=== PATIENT | male | born 1965 | race Two or more races ===

== ENCOUNTER 2024-12-11 20:53 | Inpatient (IN) | payer MEDICARE, MEDICAID, SELFPAY ==
[2024-12-11 20:55] VITALS: PULSE 74; RESP 18; O2SAT 96
--- NOTE | 2024-12-11 21:00 | PC.NURSE ---
PT BROUGHT TO ER BY AMBULANCE FROM HOME, EMS REPORTED FAMILY SAID HE IS ALTERED AND HIS BS HIGH 500, EMS GOT OD=[id number], EMS ALSO REPORTED PT VOMITED ,ZOFRAN GIVEN.
--- NOTE | 2024-12-11 21:04 | EKG_ITS ---
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
[2024-12-11 21:08] VITALS: BP 188/62; PULSE 68; RESP 17; TEMP 36.6; O2SAT 100
[2024-12-11] MEDS: SODIUM CHLORIDE 0.9% 1000 ML 1,000 ML 999 ML IV ×2 (21:50→23:20)
[2024-12-11 21:56] LABS: Collection Type, Urine Clean Catch; WBC,Urine 0 /hpf (0-5)
[2024-12-11 21:58] LABS: Hematocrit 29.1 % (41.0-53.0); Hemoglobin 10.4 g/dL (13.5-16.0); Mean Corpuscular HGB Conc 35.7 g/dl (31.0-37.0); Mean Corpuscular Hemoglobin 29.1 pg (25.0-35.0); Mean Corpuscular Volume 82 fL (80-100); Platelet Count 254 Thou/mm3 (140-440); RDW Standard Deviation 36.5 fL (35.1-43.9); Red Blood Count 3.57 Miln/mm3 (4.50-5.90); White Blood Count 12.4 Thou/mm3 (3.8-10.6)
[2024-12-11 21:59] LABS: Basophils % (Auto) 0 % (0-2.5); Eosinophils % (Auto) 0 % (0-10); Immature Granulocytes % (Auto) 0 % (0-0); Immature Granulocytes Auto 0.04 Thou/mm3 (0.00-0.00); Lymphocytes # (Auto) 1.2 Thou/mm3 (1.0-4.8); Lymphocytes % (Auto) 10 % (10-50); Monocytes # (Auto) 0.5 Thou/mm3 (0.0-0.8); Monocytes % (Auto) 4 % (0-12); Neutrophils # (Auto) 10.6 Thou/mm3 (1.8-7.7); Neutrophils % (Auto) 86 % (37-80); Nucleated Red Blood Cell % 0 /100 WBC (0)
[2024-12-11 22:00] LABS: Lactate (Lactic Acid) 5.7 mMol/L (0.4-2.0)
[2024-12-11 22:06] LABS: Beta Hydroxybutyrate 0.1 mmol/L (<0.6)
--- NOTE | 2024-12-11 22:07 | EDNOTE_ITS ---
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 Patient denies fever, Cardiac Hx or any other associated symptoms or aggravating factors. No modifying factors, no radiation, no migration. Some pain reported overall Related Data Home Medications ?Medication ?Instructions ?Recorded ?Confirmed pravastatin 40 mg tablet 40 mg PO QDAY 12/21/1807/15 omeprazole 20 mg capsule,delayed 20 mg PO QDAY 0 07/15/19 release tamsulosin 0.4 mg capsule 0.4 mg PO QDAY 07/15/1907/03 aspirin 81 mg tablet,delayed 81 mg PO QDAY 12/07/23 release carvedilol 6.25 mg tablet 6.25 mg PO BID 12/07/2312/24 Previous Rx's ?Medication ?Instructions ?Recorded empagliflozin 25 mg tablet 25 mg PO QDAY #30 tabs 12/24 (Jardiance) furosemide 40 mg tablet (Lasix) 40 mg PO QAM #30 tabs 12/07/23 insulin glargine 100 unit/mL (3 20 unit (0.2 mL) subcu t BID #15 mL 12/07/23 mL) subcutaneous pen lancets (Accu-Chek Softclix #100 ea 12/07/23 Lancets) levothyroxine 25 mcg capsule 25 mcg PO ACBR #30 caps 0 12/07/23 metformin 500 mg tablet,extended 500 mg PO QDAY #30 ta bs 12/07/23 release 24 hr pen needle, diabetic 29 gauge x #100 ea 12/07/23 1/2 Allergies Allergy/AdvReac Type Severity Reaction Status Date / Time No Known Allergies Allergy Verified 07/15/19 10:38 Review of Systems Review of Systems Systems Reviewed: All systems reviewed, normal except as documented Past Medical History Past Medical History CARDIAC: Positive Cardiac Disorders, Peripheral Vascular Disease, Hypercholesterolemia and Hypertension GASTROINTESTINAL: Positive Gastrointestinal Disorders, Pancreatitis, Gall Bladder Disease and Gastroesophageal Reflux Disease GENITOURINARY: Positive Genitourinary Disorders and Kidney Stones MUSCULOSKELETAL: Positive Musculoskeletal Disorders and Arthritis ENDOCRINE: Positive Endocrine Disorders and Diabetes Mellitus Type 2 Family History FAMILY HISTORY: Positive Family Cancer Surgical History SURGICAL: Positive Abdominal Surgery, Joint Replacement and Amputation ED Exam Narrative Physical exam: GENERAL APPEARANCE: alert and oriented x 4, well-developed, well-nourished, no acute distress VITALS: All vitals were reviewed and the pulse ox is 100% on room air, which is normal according to my interpretation. HEENT: Normocephalic, atraumatic; pupils equal, round, reactive to light; EOMI; mucous membranes pink, moist; oropharynx clear NECK: Supple LUNGS: CTABL; no wheezes, no rales, no rhonchi HEART: Regular rate, regular rhythm; normal S1, S2; no murmurs ABDOMEN: non distended; normal BS; soft, no tenderness, no guarding, no rebound; no masses, no organomegaly, no hernia BACK: no CVA tenderness EXTREMITIES: atraumatic; no edema, having reiters NEUROLOGIC: awake; alert and oriented x4; cranial nerves II-XII grossly intact; no focal sensory or motor deficits PSYCHIATRIC: appropriate mood and affect SKIN: warm, dry, pale; no rashes Course Quality Measures none Orders Category Date Time Status EKG (ED ONLY) *Do not use* NOW Care 12/11/24 21:04 Completed Fingerstick [Bedside Blood Glucose] NOW Care 12/11/24 22:07 Active IV [Insert IV] NOW Care 12/11/24 21:[address] abdomen pelvis wo con Stat Exams 12/11/24 23:[address] head/brain wo con Stat Exams 12/11/24 22:37 Completed EKG (ED Only) Stat Exams 12/11/24 21:04 Ordered XR chest 1V portable Stat Exams 12/11/24 22:37 Completed BNP [B-Type Natriuretic Peptide] Stat Lab 12/11/24 21:45 Completed Beta Hydroxybutyrate Stat Lab 12/11/24 21:45 Completed Blood Culture (Lab) Stat Lab 12/11/24 22:19 Received CBC Stat Lab 12/11/24 21:45 Completed Comprehensive Metabolic Panel Stat Lab 12/11/24 21:45 Completed Lactate (Lactic Acid) Stat Lab 12/11/24 21:45 Completed Lactic Acid, 3 HR Stat Lab 12/12/24 01:03 Completed Lipase Stat Lab 12/11/24 21:45 Completed Magnesium Stat Lab 12/11/24 21:45 Completed Procalcitonin Stat Lab 12/11/24 21:45 Completed Troponin I Stat Lab 12/11/24 21:45 Completed UA, C/S IF [Urinalysis, C/S if Indicated] Stat Lab 12/11/24 20:45 Completed 2 gm Med 12/12/24 01:44 Ordered Magnesium Sulfate 2 GM Ivpb [Magnesium Sulfate Ivpb] 2 gm in 50 ml IV X1 KCl (Potassium) Ivpb 40Meq Med 12/12/24 01:44 Ordered POTASSIUM CHL 10 mEq IVPB [Kcl Ivpb] 10 meq in 100 ml IV Q1H Labetalol IV [Trandate IV] Med 12/12/24 00:19 Discontinued 10 mg IVP X1 ONE Morphine Inj Med 12/11/24 22:24 Discontinued 3 mg IVP X1 ONE Ondansetron Inj [Zofran Inj] Med 12/11/24 22:24 Discontinued 4 mg IVP X1 ONE Piper/Tazo 2.25 gm [Zosyn] Med 12/11/24 23:03 Discontinued 2.25 gm in 50 ml IV X1 Piperacillin/Tazo 2.25GM Inj [Zosyn Inj] Med 12/11/24 23:23 Discontinued 2.25 gm IV .STK-MED ONE Sodium Chloride 0.9% 1000 ml [Ns] 1,000 ml Med 12/11/24 21:36 Discontinued IV 999 mls/hr Sodium Chloride 0.9% 1000 ml [Ns] 1,000 ml Med 12/11/24 23:02 Discontinued IV 999 mls/hr Vital Signs Vital signs: Vital Signs Temperature 97.8 F 12/11/24 21:08 Pulse Rate 68 12/11/24 21:08 Respiratory Rate 17 12/11/24 21:08 Blood Pressure 188/62 H 12/11/24 21:08 Pulse Oximetry (%) 100 12/11/24 21:08 Oxygen Delivery Method Room Air 12/11/24 21:08 Nausea/Vomiting/Diarrhea MDM Narrative MDM Narrative:: Scribe Attestation: Julianne Briggs, am scribing for and in the presence of Dr. Foreman. Provider Notation: Although this document has been carefully reviewed, there may still be some phonetic and other typographical errors.? These errors are purely grammatical due to imperfections in the software program and should not be construed in any way to? compromise the substance of the patient's medical care during this visit. Patient data External records reviewed:: [facility] previous records and EMS form Clinical information provided by:: patient and family (Daughter) Social determinants that could affect healthcare access:: none Patient has the following chronic illnesses:: Peripheral Vascular Disease, Hypercholesterolemia, Hypertension, Pancreatitis, Gall Bladder Disease, Gastroesophageal Reflux Disease, Kidney Stones, Arthritis, and Diabetes Mellitus Type 2 How is presenting disease/condition affected by chronic disease/condition?: exacerbated by Evaluation data The following diagnostics were reviewed and interpreted by me:: lab results, radiology exam(s) and EKG tracing(s) Lab and/or radiology exams considered but not ordered:: None Interpretation Summary: WBC 12.4, Potassium 3.2, Creatinine 2.7 (which is chronic), BUN 36, Glucose 190, Lactic Acid 5.7, Procalcitonin normal, UA shows 2+ protein and 4+ glucose. EKG done at 2128, NSR, rate of 70, normal intervals, normal axis, no acute ST or T wave changes, according to my interpretation. [facility] Report Signed Patient: JU PINON [facility] Record#: [id number] Birthdate: 1965 Age/Sex: 59 / M Location: [facility] Attending Dr: Ordering Physician: Rin Foreman MD Date of Service: 12/11/24 Procedure(s): XR chest 1V portable Accession Number(s): [id number] cc: Blake Gomez PA-C; Elton Montes MD; Rin Foreman MD~ Examination: AP chest single view NOT: AP portable upright chest single view Date and time: 08/13/2019 537 hours Comparison December 03, 2023 INDICATION: Chest pain today FINDINGS: Normal heart size The lungs are clear. The osseous structures are intact IMPRESSION: No active disease Dictated By: Elton Montes MD Signed By: <Electronically signed by Elton Montes MD in OV> 12/11/24 3761 [facility] Report Signed Patient: JU PINON [facility]. Record#: [id number] Birthdate: 1965 Age/Sex: 59 / M Location: [facility] Attending Dr: Ordering Physician: Rin Foreman MD Date of Service: 12/11/24 Procedure(s): CT head/brain wo con Accession Number(s): [id number] cc: Blake Gomez PA-C; Elton Montes MD; Rin Foreman MD~ Examination: CT brain head without contrast. 2-D sagittal coronal reconstructions Date and time of exam:December 11, 2024 10:50 PM INDICATIONS: Onset hypertension and dizziness today CTDI: vol (mGy):24.4 DLP: (mGycm):800 Technique: Multiple CT axial sections of the brain have been obtained, 5 mm slice thickness. Contrast has not been administered. 2-D sagittal, coronal reconstructions have been obtained Low dose protocols were performed. One or more of the following dose reduction techniques were used; automated exposure control, adjustment of the mA and/or KV according to patient size, use of iterative reconstruction technique. Findings: No significant ventricular enlargement. Intra-axial or extra-axial hemorrhage density is not seen. No mass effect or midline shift Basal cisterns are not remarkable. Fourth ventricle is midline. Cranial vault intact. Impression: Negative for acute hemorrhage, mass effect or midline shift Prominent ethmoid and left sphenoid and bilateral maxillary sinusitis Dictated By: Elton Montes MD Signed By: <Electronically signed by Eltno Montes MD in OV> 12/11/24 1339 [place] Preliminary Report Draft Patient: JU PINON [facility]. Record#: [id number] Birthdate: 1965 Age/Sex: 59 / M Location: [facility] Attending Dr: Ordering Physician: Date of Service: Procedure(s): Accession Number(s): cc: ~ CT scan of the abdomen and pelvis without intravenous contrast (axial sections with sagittal and coronal reformats) December 12, 2024 0028 hours Clinical History: Vomiting Reference is made to the prior CT report dated December 04, 2023. Findings: Mild bibasilar dependent atelectasis is present. A small hiatal hernia is present. The gallbladder is surgically absent with mildly prominent bile ducts. There is mild nodular thickening of the left adrenal. Nonobstructing renal calculi are seen bilaterally. There is no ureteric calculus or hydroureteronephrosis. The liver, pancreas, spleen and right adrenal are unremarkable on this noncontrast study. There is moderate gastric distention with possible mild gastric wall thickening and perigastric fat stranding/hyperemia. No evidence of bowel dilatation. There is thickening versus underdistention of the transverse colon and descending colon with pericolonic fat stranding/hyperemia. The rectum is distended with fecal material. Moderate amount of fecal material is present in the remaining colon. The appendix is not definitely visualized. The urinary bladder is unremarkable. There is mild prostatomegaly. There is no free fluid or free air. There is no adenopathy. The abdominal aorta demonstrates atheromatous calcification without evidence of aneurysm. There is mild diffuse subcutaneous edema. Mild degenerative changes are identified in the spine. Impression: No evidence of small bowel obstruction, free air or fluid collection. Findings suspicious for rectal fecal impaction. Thickening versus underdistention of the transverse colon and descending colon with pericolonic fat stranding/hyperemia. Possibility of mild colitis cannot be excluded. Findings suspicious for mild gastritis. Other findings as described above. Report Electronically Signed By: Manuel Guerra 12/12/2024 1:34:58 AM [EST] Medications / Prescriptions Medications / Prescriptions considered but not ordered:: None Medication administrations:: Medication Administration History Discontinued Medications Sodium Chloride (Ns) 1,000 mls @ 999 mls/hr IV .Q1H1M ONE Stop: 12/11/24 22:36 Last Infusion: 12/11/24 22:45 Dose: Infused Documented By: Admin: 12/11/24 21:50 Dose: 999 mls/hr Documented By: CVL Sodium Chloride (Ns) 1,000 mls @ 999 mls/hr IV .Q1H1M ONE Stop: 12/12/24 00:02 Last Infusion: 12/12/24 00:02 Dose: Infused Documented By: Admin: 12/11/24 23:20 Dose: 999 mls/hr Documented By: CVL Piperacillin/Tazobactam/Dextrose (Zosyn) 2.25 gm in 50 mls @ 100 mls/hr IV X1 ONE Stop: 12/11/24 23:32 Last Infusion: 12/12/24 00:09 Dose: Infused Documented By: Admin: 12/11/24 23:36 Dose: 100 mls/hr Documented By: CVL Labetalol HCl (Labetalol Inj 5 Mg/Ml Vial 20 Ml) 10 mg IVP X1 ONE Stop: 12/12/24 00:20 Last Admin: 12/12/24 00:43 Dose: 10 mg Documented By: CVL Morphine Sulfate (Morphine Sulf Inj 10 Mg/Ml Vial) 3 mg IVP X1 ONE Stop: 12/11/24 22:25 Last Admin: 12/11/24 22:34 Dose: 3 mg Documented By: CVL Comments: vial was discard before scan Ondansetron HCl (Ondansetron Inj 2 Mg/Ml Inj 2 Ml) 4 mg IVP X1 ONE Stop: 12/11/24 22:25 Last Admin: 12/11/24 22:33 Dose: 4 mg Documented By: CVL Piperacillin Sod/Tazobactam Sod (Piperacillin/Tazo Inj 2.25 Gm Vial) Confirm Administered Dose 2.25 gm IV .STK-MED ONE Stop: 12/11/24 23:24 Last Admin: 12/11/24 23:38 Dose: Not Given Documented By: CVL Non-Admin Reason: Duplicate Medication on eMAR See above if any. Consultations Consultation(s) initiated? (list below): Yes Consultation #1 (Physician, Specialty, Details): Discussed case with the resident physician, attending Dr. Levy from Hospitalist service regarding admission. Discussed patients ED course, exam findings, labs, and radiology results. The Hospitalist agrees to accept the patient for admissi on. Time: 01:41 Diagnosis Nausea Differential Diagnosis: gastroenteritis, drug-induced nausea and vomiting, dehydration and other (Gastritis, Viral illness, Pharyngitis, Otitis Media, Otitis Externa.) Most likely diagnosis given after review of the tests above:: hypertensive urgency, vomiting, lactic acidosis Admission Indicated Admission indicated?: indicated Admission Request Was there a request for admission?: Yes Admission Attestation Admission request attestation: Discussed case with [] from Hospitalist service regarding admission. Discussed patients ED course, exam findings, labs, and radiology results. The Hospitalist [agrees,declines] to accept the patient for admission. Disposition Plan Disposition Plan: Admit Discharge Plan Plan Patient Disposition: Admit Acute Care w/in Hospital Prescriptions/Referrals Prescriptions/Med Rec: No Action pravastatin 40 mg Tablet 40 mg PO QDAY omeprazole 20 mg Capsule,Delayed Release(Dr/Ec) 20 mg PO QDAY tamsulosin 0.4 mg Capsule 0.4 mg PO QDAY aspirin 81 mg tablet,delayed release (DR/EC) 81 mg PO QDAY carvedilol 6.25 mg tablet 6.25 mg PO BID metformin 500 mg tablet extended release 24 hr 500 mg PO QDAY Qty: 30 0RF Jardiance 25 mg tablet 25 mg PO QDAY Qty: 30 0RF furosemide [Lasix] 40 mg tablet 40 mg PO QAM Qty: 30 0RF levothyroxine 25 mcg capsule 25 mcg PO ACBR Qty: 30 2RF Rx Instructions: Take 1 capsule (25mcg) every morning, 2 hours before any food or other medications insulin glargine 100 unit/mL (3 mL) insulin pen 20 unit subcut BID Qty: 15 0RF (DME) pen needle, diabetic 29 gauge x 1/2 needle See Rx Instructions .Route Qty: 100 0RF Rx Instructions: As directed (DME) lancets [Accu-Chek Softclix Lancets] Misc See Rx Instructions .Route Qty: 100 0RF Rx Instructions: As directed Referrals: Blake Gomez PA-C [Primary Care Provider] - In 1 week Problem List Clinical Impression: Hypertensive urgency, Vomiting, Lactic acidosis Patient/Caregiver Discharge Instructions Print Language: Eritrean Stand Alone Forms: [facility] Award Info., Patient Portal Info Letter
[2024-12-11 22:17] LABS: Bilirubin,Urine Negative (Negative); Blood,Urine Trace (Negative); Clarity,Urine Clear (Clear/Hazy); Color,Urine Colorless (Lt Yel-Yel); Culture Indicated,Urine Not Indicated; Glucose, Urine 4+ (Negative); Ketones,Urine Negative (Negative); Leukocyte Esterase,Urine Negative (Negative); Nitrite,Urine Negative (Negative); Protein,Urine 2+ (Neg - Trace); RBC,Urine 1 /hpf (0-3); Specific Gravity,Urine 1.016 (1.001-1.035); Squamous Epithelial Cell,Urine < 1 /hpf (0-5); Urobilinogen,Urine Negative mg/dL (0.0-1.0)
[2024-12-11 22:30] LABS: Alanine Aminotransferase 13 U/L (10-49); Albumin, Serum 4.1 gm/dL (3.4-4.8); Albumin/Globulin Ratio 2.1 (1.2-2.2); Alkaline Phosphatase 106 U/L (46-116); Anion Gap 16 (7-16); BUN/Creatinine Ratio 13 Ratio (12-20); Bilirubin,Total 0.5 mg/dL (0.3-1.2); Blood Urea Nitrogen 36 mg/dL (9-23); Calcium 9.5 mg/dL (8.3-10.6); Calcium (Corrected) 9.5 mg/dL (8.5-10.1); Chloride 100 mMol/L (98-107); Creatinine (Component) 2.7 mg/dL (0.6-1.3); Glucose 190 mg/dL (74-106); Lipase 34 U/L (12-53); Magnesium 1.6 mg/dL (1.6-2.6); Osmolality,Calculated 287 (275-295); Potassium 3.2 mMol/L (3.4-5.1); Procalcitonin 0.22 ng/ml (0.0-0.49); Sodium 137 mMol/L (136-145); Total Protein 6.1 gm/dL (5.7-8.2); eGFR 26 See Note
[2024-12-11] MEDS: ONDANSETRON INJ 2 MG/ML INJ 2 ML 4 MG IVP (22:33)
[2024-12-11] MEDS: MORPHINE SULF INJ 10 MG/ML VIAL 3 MG IVP (22:34)
--- NOTE | 2024-12-11 22:37 | XR_ITS ---
Examination: CT brain head without contrast. 2-D sagittal coronal reconstructions Date and time of exam:December 11, 2024 10:50 PM INDICATIONS: Onset hypertension and dizziness today CTDI: vol (mGy):24.4 DLP: (mGycm):800 Technique: Multiple CT axial sections of the brain have been obtained, 5 mm slice thickness. Contrast has not been administered. 2-D sagittal, coronal reconstructions have been obtained Low dose protocols were performed. One or more of the following dose reduction techniques were used; automated exposure control, adjustment of the mA and/or KV according to patient size, use of iterative reconstruction technique. Findings: No significant ventricular enlargement. Intra-axial or extra-axial hemorrhage density is not seen. No mass effect or midline shift Basal cisterns are not remarkable. Fourth ventricle is midline. Cranial vault intact. Impression: Negative for acute hemorrhage, mass effect or midline shift Prominent ethmoid and left sphenoid and bilateral maxillary sinusitis
--- NOTE | 2024-12-11 22:37 | XR_ITS ---
Examination: AP chest single view NOT: AP portable upright chest single view Date and time: 08/13/2019 537 hours Comparison December 03, 2023 INDICATION: Chest pain today FINDINGS: Normal heart size The lungs are clear. The osseous structures are intact IMPRESSION: No active disease
[2024-12-11 22:56] LABS: Troponin I < 0.020 ng/mL (0.0-0.045)
[2024-12-11 23:05] LABS: B-Type Natriuretic Peptide 120 pg/mL (0-100)
[2024-12-11 23:16] VITALS: BP 202/83; PULSE 94; RESP 18; TEMP 36.4; O2SAT 100
[2024-12-11] MEDS: PIPER/TAZO 2.25 GM 2.25 GM/50 ML BAG IV (23:36)
[2024-12-11 23:50] VITALS: BP 208/89; PULSE 102; RESP 16; O2SAT 99
--- NOTE | 2024-12-11 23:53 | XR_ITS ---
Examination: CT abdomen and pelvis without contrast. Coronal 3-D reconstructions. Sagittal 2-D reconstructions. Date and time of exam:December 12, 2024 0028 hours Comparison December 04, 2023 INDICATIONS: Nausea vomiting weakness today CTDI: vol (mGy): 6.35 DLP: (mGycm): 364 Technique: Axial images of the abdomen have been obtained, 3 mm slice thickness Intravenous contrast material has not been administered. Low dose protocols were performed. One or more of the following dose reduction techniques were used; automated exposure control, adjustment of the mA and/or KV according to patient size, use of iterative reconstruction technique. Findings: No focal liver lesion Absent gallbladder Gastric mucosa is diffusely thickened No pancreatic mass Bilateral 1 to 3 mm renal calculi Perinephric stranding Abdominal aortic calcification no aneurysmal dilatation No bowel obstruction Mild wall thickening involving the colon No diverticulitis Abundant stool in the rectum with thickening of the rectal wall Mild prostatomegaly Advanced disc narrowing L5-S1 IMPRESSION: Gastritis pattern. Bilateral tiny nonobstructing renal calculi, no hydronephrosis or ureteral calculi No bowel obstruction Suspicious for mild diffuse nonspecific colitis Abundant stool in the rectum with thickening of the rectal wall, differential would include proctitis, the appearance should be clinically correlated
[2024-12-12] VITALS (15 sets, daily range): BP systolic 111–201; BP diastolic 55–91; PULSE 63–102; RESP 12–98; TEMP 36.1–36.9; O2SAT 98–99; BMI 23.7; BMI 23.6
[2024-12-12] MEDS: LABETALOL INJ 5 MG/ML VIAL 20 ML 10 MG IVP (00:43)
[2024-12-12 00:52] LABS: Reflex Lactate? Y
[2024-12-12 01:28] LABS: Lactic Acid, 3 HR 3.4 mMol/L (0.4-2.0)
--- NOTE | 2024-12-12 01:35 | PRELIM_ITS ---
CT scan of the abdomen and pelvis without intravenous contrast (axial sections with sagittal and coronal reformats) December 12, 2024 0028 hours Clinical History: Vomiting Reference is made to the prior CT report dated December 04, 2023. Findings: Mild bibasilar dependent atelectasis is present. A small hiatal hernia is present. The gallbladder is surgically absent with mildly prominent bile ducts. There is mild nodular thickening of the left adrenal. Nonobstructing renal calculi are seen bilaterally. There is no ureteric calculus or hydroureteronephrosis. The liver, pancreas, spleen and right adrenal are unremarkable on this noncontrast study. There is moderate gastric distention with possible mild gastric wall thickening and perigastric fat stranding/hyperemia. No evidence of bowel dilatation. There is thickening versus underdistention of the transverse colon and descending colon with pericolonic fat stranding/hyperemia. The rectum is distended with fecal material. Moderate amount of fecal material is present in the remaining colon. The appendix is not definitely visualized. The urinary bladder is unremarkable. There is mild prostatomegaly. There is no free fluid or free air. There is no adenopathy. The abdominal aorta demonstrates atheromatous calcification without evidence of aneurysm. There is mild diffuse subcutaneous edema. Mild degenerative changes are identified in the spine. Impression: No evidence of small bowel obstruction, free air or fluid collection. Findings suspicious for rectal fecal impaction. Thickening versus underdistention of the transverse colon and descending colon with pericolonic fat stranding/hyperemia. Possibility of mild colitis cannot be excluded. Findings suspicious for mild gastritis. Other findings as described above. Report Electronically Signed By: Manuel Guerra 12/12/2024 1:34:58 AM [EST]
[2024-12-12] MEDS: POTASSIUM CHL 10 mEq IVPB 10 MEQ/100 ML BAG 100 MEQ IV ×4 (01:57→05:17)
--- NOTE | 2024-12-12 02:25 | ESHP_ITS ---
Documentation for date of: 12/12/24 HPI History of Present Illness Chief complaint: Nausea vomiting History of present illness: 59-year-old male with past medical history of hypertension, diabetes, hypothyroidism, HFpEF, peripheral neuropathy who presented to the ED due to nausea and vomiting. Onset of symptoms December 12, 2019 5 in the morning patient states he sat for 5 episodes of nausea and nonbloody vomiting with associated chills but denies any fevers. He also relates some abdominal pain rated 7 out of 10 across all 4 quadrants. He also states that since Monday he has been having some blurry vision and some headaches since Monday saw primary care and states nothing was done. He also states that he usually has chronic diarrhea since his cholecystectomy in 2019. At this time patient denies any fever, shortness of breath, chest pain, recent travel, sick contacts, leg swelling, orthopnea, PND. ED course: ED vitals: BP 188/62, HR 68, O2 sat 100% on room air ED labs: Leukocytosis, normocytic anemia, hypokalemia, BUN 36, creatinine 2.7, glucose 190, lactic acid 5.4 later downtrending to 3.4 after 2 L of IV fluids, BNP 120, UA shows 4+ glucose, 2+ protein CT abdomen pelvis done showed No evidence of small bowel obstruction, free air or fluid collection. Findings suspicious for rectal fecal impaction. Thickening versus underdistention of the transverse colon and descending colon with pericolonic fat stranding/hyperemia. Possibility of mild colitis cannot be excluded. Findings suspicious for mild gastritis. In the ED patient received 2 L NS, Zosyn, morphine, Zofran PMHx: As above SX Hx: Cholecystectomy, appendectomy, left toe amputation Social Hx: Denies cigarette use, denies alcohol use, denies illicit substances including THC Hx: Unknown Review of Systems Review of Systems Systems Reviewed: All systems reviewed, normal except as documented Narrative Review of Systems: All 12 systems reviewed and found negative unless otherwise stated in the HPI Exam Vital Signs Temp Pulse Resp BP Pulse Ox O2 Del Method 98.4 F 90 12 201/91 H 99 Room Air 12/12/24 02:15 12/12/24 02:15 12/12/24 02:15 12/12/24 02:15 12/12/24 02:15 12/12/24 01:16 Narrative Exam Physical Exam GENERAL: NAD, AAOx3 HEENT: Moist mucosa. Eyes open, symmetrical, & clear CARDIO: Heart RRR, no obvious murmurs PULM: No noted coughing/dyspnea CTA B/L, no R/W/R GI: Abdomen soft, nondistended, mild tenderness to palpation in all 4 quadrants, bowel sounds appreciated SKIN/MSK/EXT: Right lower extremity first metatarsal amputated, pedal pulses present B/L NEURO: AAOx3, no focal neuro deficits, able to move all 4 extremities Results: Labs 12/12/24 04:57 12/11/24 21:45 Labs: Short CBC 12/11/24 Range/Units 21:45 WBC 12.4 H (3.8-10.6) Thou/mm3 Hgb 10.4 L (13.5-16.0) g/dL Hct 29.1 L (41.0-53.0) % Plt Count 254 (140-440) Thou/mm3 BMP 12/11/24 21:45 Sodium 137 Potassium 3.2 L Chloride 100 Carbon Dioxide 21.0 BUN 36 H Creatinine 2.7 H Glucose 190 H Calcium 9.5 Cardiac Enzymes 12/11/24 Range/Units 21:45 Troponin I < 0.020 (0.0-0.045) ng/mL Liver Function 12/11/24 Range/Units 21:45 Total Bilirubin 0.5 (0.3-1.2) mg/dL ALT 13 (10-49) U/L Alkaline Phosphatase 106 (46-116) U/L Albumin 4.1 (3.4-4.8) gm/dL Urine 12/11/24 Range/Units 20:45 Urine Color Colorless A (Lt Yel-Yel) Urine Clarity Clear (Clear/Hazy) Urine pH 7.0 (5.0-7.0) Ur Specific [place] 1.016 (1.001-1.035) Urine Protein 2+ A (Neg - Trace) Urine Glucose (UA) 4+ A (Negative) Quality Measures Quality Measures none Medications Home Medications and Allergies Home Medications ?Medication ?Instructions ?Recorded ?Confirmed ?Type pravastatin 40 mg tablet 40 mg PO QDAY 12/21/1812/12 History tamsulosin 0.4 mg capsule 0.4 mg PO QDAY 07/15/1912/01 History aspirin 81 mg tablet,delayed 81 mg PO QDAY 12/07/23 History release carvedilol 6.25 mg tablet 6.25 mg PO BID 12/07/2312/01 History amoxicillin 875 mg-potassium 1 tab PO Q12H 12/12/24 History clavulanate 125 mg tablet gabapentin 600 mg tablet 600 mg PO Q12H 12/12/2412/01 History insulin glargine 100 unit/mL (3 36 unit subcut .daily 12/12/24 12/12/24 History mL) subcutaneous pen losartan 25 mg tablet 25 mg PO BID 12/12/24 History Allergies Allergy/AdvReac Type Severity Reaction Status Date / Time No Known Allergies Allergy Verified 07/15/19 10:38 Visit Medications Acetaminophen (Acetaminophen 325 Mg Tablet) 650 mg PO Q6H PRN PRN Reason: Fever >99.5 Stop: 01/11/25 02:11 Acetaminophen (Acetaminophen 325 Mg Tablet) 1,000 mg PO Q6H PRN PRN Reason: PAIN SCALE 1-3 (mild Stop: 01/11/25 02:11 Azithromycin (Azithromycin 250 Mg Tablet) 500 mg PO QDAY [facility] Stop: 12/15/24 08:59 Dextrose (Dextrose 50%-Water Inj 50 Ml Syringe) 25 ml IV Q15MIN PRN PRN Reason: BG 50-70 responsive npo pt Stop: 01/11/25 02:18 Dextrose (Dextrose 50%-Water Inj 50 Ml Syringe) 50 ml IV Q15MIN PRN PRN Reason: BG <50 OR BG <70 & pt unresponsive Stop: 01/11/25 02:18 Docusate Sodium (Docusate Sod 100 Mg Capsule) 100 mg PO QDAY [facility]; Protocol Stop: 01/11/25 08:59 Enoxaparin Sodium (Enoxaparin Sod Inj 40 Mg/0.4 Ml Syringe) 40 mg SC QDAY [facility] Stop: 12/26/24 08:59 Gabapentin (Gabapentin 300 Mg Capsule) 600 mg PO TID [facility] Stop: 01/11/25 05:59 Glucagon (Glucagon Inj 1 Mg Vial) 1 mg IM Q15MIN PRN PRN Reason: BG <70, and no IV access Magnesium Sulfate (Magnesium Sulfate Ivpb) 2 gm in 50 mls @ 25 mls/hr IV X1 ONE Stop: 12/12/24 03:43 Potassium Chloride (Kcl Ivpb) 10 meq in 100 mls @ 100 mls/hr IV Q1H [facility] Stop: 12/12/24 05:43 Last Admin: 12/12/24 01:57 Dose: 100 mls/hr Sodium Chloride (Ns) 1,000 mls @ 75 mls/hr IV .[id number] [facility] Stop: 01/11/25 02:17 Insulin Human Lispro (Insulin Lispro (Admelog) 1 Unit/0.01 Ml Unit) 0 unit SC AC [facility]; Protocol Stop: 01/11/25 07:29 Labetalol HCl (Labetalol Inj 5 Mg/Ml Vial 20 Ml) 10 mg IVP Q6HR PRN PRN Reason: SBP>180 Stop: 01/11/25 02:23 Levothyroxine Sodium (Levothyroxine Sodium 25 Mcg Tablet) 25 mcg PO [facility] Stop: 01/11/25 05:59 Nifedipine (Nifedipine Xl 30 Mg Tabcr) 60 mg PO QDAY [facility] Stop: 01/11/25 08:59 Ondansetron HCl (Ondansetron Inj 2 Mg/Ml Inj 2 Ml) 4 mg IVP Q6H PRN; Protocol PRN Reason: NAUSEA OR VOMITING Stop: 01/11/25 02:11 Sennosides (Senna Tablet) 1 tab PO QDAY [facility]; Protocol Stop: 01/11/25 08:59 Discontinued Medications Sodium Chloride (Ns) 1,000 mls @ 999 mls/hr IV .Q1H1M ONE Stop: 12/11/24 22:36 Last Infusion: 12/11/24 22:45 Dose: Infused Sodium Chloride (Ns) 1,000 mls @ 999 mls/hr IV .Q1H1M ONE Stop: 12/12/24 00:02 Last Infusion: 12/12/24 00:02 Dose: Infused Piperacillin/Tazobactam/Dextrose (Zosyn) 2.25 gm in 50 mls @ 100 mls/hr IV X1 ONE Stop: 12/11/24 23:32 Last Infusion: 12/12/24 00:09 Dose: Infused Labetalol HCl (Labetalol Inj 5 Mg/Ml Vial 20 Ml) 10 mg IVP X1 ONE Stop: 12/12/24 00:20 Last Admin: 12/12/24 00:43 Dose: 10 mg Morphine Sulfate (Morphine Sulf Inj 10 Mg/Ml Vial) 3 mg IVP X1 ONE Stop: 12/11/24 22:25 Last Admin: 12/11/24 22:34 Dose: 3 mg Ondansetron HCl (Ondansetron Inj 2 Mg/Ml Inj 2 Ml) 4 mg IVP X1 ONE Stop: 12/11/24 22:25 Last Admin: 12/11/24 22:33 Dose: 4 mg Assessment & Plan Plan 59-year-old male with past medical history of hypertension, diabetes, hypothyroidism, HFpEF presented to the ED due to nausea and vomiting. Patient will be admitted for colitis and hypertensive urgency/emergency. #Colitis Patient has multiple episodes of nausea with vomiting nonbloody emesis CT shows No evidence of small bowel obstruction, free air or fluid collection. Findings suspicious for rectal fecal impaction. Thickening versus underdistention of the transverse colon and descending colon with pericolonic fat stranding/hyperemia. Possibility of mild colitis cannot be excluded. Findings suspicious for mild gastritis. In the ED patient received 2 L NS, Zosyn, morphine, Zofran ? Azithromycin 500 mg daily X 3 days (12/12/2024?) ? Follow-up cultures ? Gentle IV hydration considering the patient has history of HFpEF although not on medications at this time #Hypertensive emergency Endorgan damage acute kidney injury, patient with blurry vision since Monday and associated headaches SBP >200 in the ED, Was given labetalol in the ER ? Nifedipine XR 60mg daily ? Labetalol 10 mg IV as needed #Acute Kidney injury #Lactic acidosis Likely secondary to dehydration due to vomiting episodes ? Follow-up lactic acid ? on gentle IVF's ? Avoid nephrotoxins ? Renally dose medications #HFpEF [55-60%] Found on chart review, med rec shows patient takes carvedilol and Lasix however when asked states he does not take these medications Not in acute exacerbation at this time #Diabetes mellitus type 2 #Peripheral neuropathy Last A1c: 9.5, December 2023 ? SSI ? Hypoglycemia protocol in place #Hypothyroidism ? Resume levothyroxine 25 mcg as taken at home Health Maintenance: Disposition: MedSurg Fluids: NS Feeding: Clear liquid Thrombo prophylaxis: Lovenox Gastric Ulcer prophylaxis: Pantoprazole CODE STATUS: Full code Case discussed with my attending Dr. Mildred Marshall MD PGY-1 Disclaimer: Despite multiple revisions, due to the dictation software being used, the document bellow may not be free of grammatical errors including phonetic/typographic errors. However, this does not deter from our commitment to providing health care in the patient's best interest in mind. Attending Provider Attestation/Addendum I reviewed labs, imaging, EKG, home medications and prior available records. Face to face evaluation was performed by me. I have personally examined the patient and discussed assessment and plan with the IM team. I reviewed the resident note and agree with the plan with exceptions as below. Nausea and vomiting Acute diarrhea, improved Acute gastroenteritis Colitis ANGELA on CKD Chronic HFpEF Lactic acidosis Hypertensive urgency versus emergency Uncontrolled hypertension Symptoms are likely in setting of gastroenteritis/colitis Start IV fluids Careful IV fluids in the setting of history of HFpEF Start empiric antibiotics with azithromycin Trend lactic acid Monitor kidney function. Avoid nephrotoxins. Renally dosed medications
[2024-12-12] MEDS: Magnesium Sulfate 2 GM Ivpb 2 GM/50 ML BAG IV (02:33)
--- NOTE | 2024-12-12 04:17 | PC.NURSE ---
REPORT GIVEN TO ANA BYERS AT [facility].
[2024-12-12] MEDS: SODIUM CHLORIDE 0.9% 1000 ML 1,000 ML 75 ML IV (05:04)
[2024-12-12 05:13] LABS: Lactate (Lactic Acid) 1.5 mMol/L (0.4-2.0)
[2024-12-12] MEDS: LEVOTHYROXINE SODIUM 25 MCG TABLET PO (05:13)
[2024-12-12] MEDS: NIFEdipine XL 30 MG TABCR 60 MG PO (05:13)
[2024-12-12] MEDS: GABAPENTIN 300 MG CAPSULE 600 MG PO ×3 (05:13→21:39)
[2024-12-12 05:16] LABS: Basophils % (Auto) 0 % (0-2.5); Eosinophils % (Auto) 0 % (0-10); Hematocrit 27.8 % (41.0-53.0); Hemoglobin 9.6 g/dL (13.5-16.0); Immature Granulocytes % (Auto) 0 % (0-0); Immature Granulocytes Auto 0.03 Thou/mm3 (0.00-0.00); Lymphocytes # (Auto) 0.9 Thou/mm3 (1.0-4.8); Lymphocytes % (Auto) 9 % (10-50); Mean Corpuscular HGB Conc 34.5 g/dl (31.0-37.0); Mean Corpuscular Hemoglobin 29.4 pg (25.0-35.0); Mean Corpuscular Volume 85 fL (80-100); Monocytes # (Auto) 0.4 Thou/mm3 (0.0-0.8); Monocytes % (Auto) 5 % (0-12); Neutrophils # (Auto) 8.5 Thou/mm3 (1.8-7.7); Neutrophils % (Auto) 86 % (37-80); Nucleated Red Blood Cell % 0 /100 WBC (0); Platelet Count 223 Thou/mm3 (140-440); RDW Standard Deviation 38.4 fL (35.1-43.9); Red Blood Count 3.26 Miln/mm3 (4.50-5.90); White Blood Count 9.8 Thou/mm3 (3.8-10.6)
[2024-12-12 05:36] LABS: Glucose Estimated Average 255 mg/dL (80-131); Hemoglobin A1C 10.5 % Hgb (4.8-6.0)
[2024-12-12 05:56] LABS: Alanine Aminotransferase 10 U/L (10-49); Albumin, Serum 3.4 gm/dL (3.4-4.8); Albumin/Globulin Ratio 1.7 (1.2-2.2); Alkaline Phosphatase 94 U/L (46-116); Anion Gap 13 (7-16); BUN/Creatinine Ratio 14 Ratio (12-20); Bilirubin,Total 0.5 mg/dL (0.3-1.2); Blood Urea Nitrogen 30 mg/dL (9-23); Calcium 8.2 mg/dL (8.3-10.6); Calcium (Corrected) 8.7 mg/dL (8.5-10.1); Carbon Dioxide 22.4 mMol/L (20.0-31.0); Chloride 107 mMol/L (98-107); Creatinine (Component) 2.2 mg/dL (0.6-1.3); Estimated Creatinine Clearance 31.8 mL/min (>60); Glucose 99 mg/dL (74-106); Magnesium 2.2 mg/dL (1.6-2.6); Osmolality,Calculated 289 (275-295); Potassium 4.7 mMol/L (3.4-5.1); Sodium 142 mMol/L (136-145); Thyroid Stimulating Hormone 2.66 uIU/mL (0.55-4.78); Total Protein 5.4 gm/dL (5.7-8.2); eGFR 33 See Note
[2024-12-12] MEDS: AZITHROMYCIN 250 MG TABLET 500 MG PO (08:25)
[2024-12-12] MEDS: PANTOPRAZOLE INJ 40 MG VIAL IVP (08:26)
[2024-12-12] MEDS: SENNA TABLET 1 TAB PO (08:26)
[2024-12-12] MEDS: DOCUSATE SOD 100 MG CAPSULE PO (08:26)
[2024-12-12] MEDS: ENOXAPARIN SOD INJ 40 MG/0.4 ML SYRINGE SC (08:26)
[2024-12-12] MEDS: INSULIN LISPRO (AdmeLOG) 1 UNIT/0.01 ML UNIT SC ×2 (11:35→17:09)
--- NOTE | 2024-12-12 11:41 | ESPR_ITS ---
<Statement entered by Emilie Headley MD - 12/24/24 08:54> I reviewed above note and agree with findings and plans. I have also personally examined the patient with medicine team and went over assessment and plan with medical team including graduate intern and resident physician. Documentation for date of: 12/12/24 Subjective Subjective Interval history: No acute overnigth events reported. Pt is seen and examined at bedside this morning. Pt continues to complain of mild abdominal pain. Endorses to improvement in his nausea and vomitting. Denies deziness. Pt states he did take his BP meds hwoever he continued to have headache at home. denies any sick contacts or recent travel. BP is stable and labs are review. Cr has a mild improvement. However after chart reviewing, Pt has history of CKD, therefore will consult nephrology. Exam Vital Signs Temp Pulse Resp BP Pulse Ox O2 Del Method 97.3 F 79 16 176/84 H 99 Room Air 12/12/24 08:00 12/12/24 08:00 12/12/24 08:00 12/12/24 08:00 12/12/24 08:00 12/12/24 08:00 Narrative Exam L GENERAL: A&Ox3 . estonian speaking, cooperative, Awake, Not in acute distress NEURO: no focal neurological deficits HEENT: Atraumatic, Normocephalic. mucous membranes moist. Eyes open, symmetrical, & clear HEART: Normal Heart Sounds LUNGS: Clear to auscultation with no wheezing or crackles. ABDOMEN: soft, non-distended, non-tender, bowel sounds heard, no guarding or rebound tenderness SKIN: No Rash or ecchymoses EXTREMITIES: No edema, tenderness, able to move all 4 extremities, pedal pulses palpated Objective Labs 12/12/24 04:57 12/12/24 04:57 Labs: Laboratory Results - last 24 hr 12/11/24 12/11/24 12/12/24 20:45 21:45 01:03 WBC 12.4 H RBC 3.57 L Hgb 10.4 L Hct 29.1 L MCV 82 MCH 29.1 MCHC 35.7 RDW Std Deviation 36.5 Plt Count 254 Neut % (Auto) 86 H Lymph % (Auto) 10 [place] % (Auto) 4 Eos % (Auto) 0 Baso % (Auto) 0 Neut # (Auto) 10.6 H Lymph # (Auto) 1.2 [place] # (Auto) 0.5 Eos # (Auto) 0.0 Baso # (Auto) 0.0 Immature Gran # (Auto) 0.04 H Absolute Nucleated RBC 0.00 Immature Gran % 0 Nucleated RBC % 0 Sodium 137 Potassium 3.2 L Chloride 100 Carbon Dioxide 21.0 Anion Gap 16 BUN 36 H Creatinine 2.7 H Estim Creat Clear Calc Not Performed. eGFR 26 L BUN/Creatinine Ratio [address] Glu mg/dL Hemoglobin A1c Calculated Osmolality 287 Lactic Acid 5.7 H* 3.4 H Calcium 9.5 Corrected Calcium 9.5 Magnesium 1.6 Total Bilirubin 0.5 ALT 13 Alkaline Phosphatase 106 Troponin I < 0.020 B-Natriuretic Peptide 120 H Total Protein 6.1 Albumin 4.1 Globulin 2.0 L Albumin/Globulin Ratio 2.1 Lipase 34 Beta-Hydroxybutyrate/Acetoacetate 0.1 Procalcitonin 0.22 TSH Ur Collection Type Clean Catch Urine Color Colorless A Urine Clarity Clear Urine pH 7.0 Ur Specific [place] 1.016 Urine Protein 2+ A Urine Glucose (UA) 4+ A Urine Ketones Negative Urine Blood Trace Urine Nitrite Negative Urine Bilirubin Negative Urine Urobilinogen (Auto) Negative Ur Leukocyte Esterase Negative Urine RBC 1 Urine WBC 0 Ur Squamous Epith Cells < 1 Urine Bacteria None Ur Culture Indicated? Not Indicated 12/12/24 04:57 WBC 9.8 RBC 3.26 L Hgb 9.6 L Hct 27.8 L MCV 85 MCH 29.4 MCHC 34.5 RDW Std Deviation 38.4 Plt Count 223 D Neut % (Auto) 86 H Lymph % (Auto) 9 L [place] % (Auto) 5 Eos % (Auto) 0 Baso % (Auto) 0 Neut # (Auto) 8.5 H Lymph # (Auto) 0.9 L [place] # (Auto) 0.4 Eos # (Auto) 0.0 Baso # (Auto) 0.0 Immature Gran # (Auto) 0.03 H Absolute Nucleated RBC 0.00 Immature Gran % 0 Nucleated RBC % 0 Sodium 142 Potassium 4.7 D Chloride 107 Carbon Dioxide 22.4 Anion Gap 13 BUN 30 H Creatinine 2.2 H D Estim Creat Clear Calc 31.8 L eGFR 33 L BUN/Creatinine Ratio [address] Glu mg/dL 255 H Hemoglobin A1c 10.5 H Calculated Osmolality 289 Lactic Acid 1.5 Calcium 8.2 L Corrected Calcium 8.7 Magnesium 2.2 Total Bilirubin 0.5 ALT 10 Alkaline Phosphatase 94 Troponin I B-Natriuretic Peptide Total Protein 5.4 L Albumin 3.4 D Globulin 2.0 L Albumin/Globulin Ratio 1.7 Lipase Beta-Hydroxybutyrate/Acetoacetate Procalcitonin TSH 2.66 Ur Collection Type Urine Color Urine Clarity Urine pH Ur Specific [place] Urine Protein Urine Glucose (UA) Urine Ketones Urine Blood Urine Nitrite Urine Bilirubin Urine Urobilinogen (Auto) Ur Leukocyte Esterase Urine RBC Urine WBC Ur Squamous Epith Cells Urine Bacteria Ur Culture Indicated? Quality Measures Quality Measures none Assessment & Plan Assessment Current Active Medications: Generic Name Dose Route Start Last Admin Trade Name Freq PRN Reason Stop Dose Admin Acetaminophen 650 mg 12/12/24 02:12 Acetaminophen 325 Mg Tablet PO 01/11/25 02:11 Q6H PRN Fever >99.5 Acetaminophen 1,000 mg 12/12/24 09:02 Acetaminophen 500 Mg Tablet PO 01/11/25 02:11 Q6H PRN PAIN SCALE 1-3 (mild Azithromycin 500 mg 12/12/24 09:00 12/12/24 08:25 Azithromycin 250 Mg Tablet PO 12/15/24 08:59 500 mg QDAY NILAM Administration Carvedilol 6.25 mg 12/12/24 17:30 Carvedilol 3.125 Mg Tablet PO 01/11/25 17:29 BIDWM NILAM Dextrose 25 ml 12/12/24 02:19 Dextrose 50%-Water Inj 50 Ml Syringe IV 01/11/25 02:18 Q15MIN PRN BG 50-70 responsive npo pt Dextrose 50 ml 12/12/24 02:19 Dextrose 50%-Water Inj 50 Ml Syringe IV 01/11/25 02:18 Q15MIN PRN BG <50 OR BG <70 & pt unresponsive Docusate Sodium 100 mg 12/12/24 09:00 12/12/24 08:26 Docusate Sod 100 Mg Capsule PO 01/11/25 08:59 100 mg QDAY NILAM Administration Protocol Enoxaparin Sodium 40 mg 12/12/24 09:00 12/12/24 08:26 Enoxaparin Sod Inj 40 Mg/0.4 Ml Syringe SC 12/26/24 08:59 40 mg QDAY NILAM Administration Gabapentin 600 mg 12/12/24 06:00 12/12/24 05:13 Gabapentin 300 Mg Capsule PO 01/11/25 05:59 600 mg TID NILAM Administration Glucagon 1 mg 12/12/24 02:19 Glucagon Inj 1 Mg Vial IM Q15MIN PRN BG <70, and no IV access Sodium Chloride 1,000 mls @ 75 mls/hr 12/12/24 02:18 12/12/24 05:04 Ns IV 12/12/24 15:37 75 mls/hr .[id number] NILAM Administration Insulin Human Lispro 0 unit 12/12/24 07:30 12/12/24 08:18 Insulin Lispro (Admelog) 1 Unit/0.01 Ml Unit SC 01/11/25 07:29 Not Given AC NILAM Protocol Levothyroxine Sodium 25 mcg 12/12/24 06:00 12/12/24 05:13 Levothyroxine Sodium 25 Mcg Tablet PO 01/11/25 05:59 25 mcg ACBR NILAM Administration Nifedipine 60 mg 12/12/24 03:00 12/12/24 08:54 Nifedipine Xl 30 Mg Tabcr PO 01/11/25 02:59 Not Given QDAY NILAM Ondansetron HCl 4 mg 12/12/24 02:12 Ondansetron Inj 2 Mg/Ml Inj 2 Ml IVP 01/11/25 02:11 Q6H PRN NAUSEA OR VOMITING Protocol Pantoprazole Sodium 40 mg 12/12/24 09:00 12/12/24 08:26 Pantoprazole Inj 40 Mg Vial IVP 01/11/25 08:59 40 mg QDAY NILAM Administration Sennosides 1 tab 12/12/24 09:00 12/12/24 08:26 Senna Tablet PO 01/11/25 08:59 1 tab QDAY NILAM Administration Protocol Plan Mr. Marshall is a 59-year-old male with past medical history of hypertension, diabetes, hypothyroidism, HFpEF presented to the ED due to nausea and vomiting. Patient will be admitted for colitis and hypertensive urgency/emergency. #Hypertensive emergency Endorgan damage acute kidney injury, patient with blurry vision since Monday and associated headaches SBP >200 in the ED, Was given labetalol in the ER ?Nifedipine XR 60mg daily ?Labetalol 10 mg IV as needed #Gastroenteritis Patient has multiple episodes of nausea with vomiting nonbloody emesis and diarrhea CT shows No evidence of small bowel obstruction, free air or fluid collection. Findings suspicious for rectal fecal impaction. Thickening versus underdistention of the transverse colon and descending colon with pericolonic fat stranding/hyperemia. Possibility of mild colitis cannot be excluded. Findings suspicious for mild gastritis. In the ED patient received 2 L NS, Zosyn, morphine, Zofran ? Azithromycin 500 mg daily X 3 days (12/12/2024?) ? Follow-up cultures ? Gentle IV hydration considering the patient has history of HFpEF although not on medications at this time #Acute Kidney injury on CKD #Lactic acidosis - resolved Likely secondary to dehydration due to vomiting episodes Pt has a history of CKD, per chart reviewing Pt creatinine has been between 2 to 3 and GFR 20-30 ? Follow-up lactic acid ? on gentle IVF's ? Avoid nephrotoxins ? Renally dose medications -Will consult Nephrology, appreciate recommendations #HFpEF [55-60%] Found on chart review, med rec shows patient takes carvedilol and Lasix however when asked states he does not take these medications Not in acute exacerbation at this time #Diabetes mellitus type 2 #Peripheral neuropathy Last A1c: 9.5, December 2023 ? SSI ? Hypoglycemia protocol in place #Hypothyroidism ? Resume levothyroxine 25 mcg as taken at home Health Maintenance: Disposition: MedSurg Fluids: NS Feeding: Clear liquid Thrombo prophylaxis: Lovenox Gastric Ulcer prophylaxis: Pantoprazole CODE STATUS: Full code Assessment and plan discussed with my attending physician Dr. Fang Mendoza (PGY-1)- Internal medicine resident
--- NOTE | 2024-12-12 13:13 | PD.RESCONSUL ---
HPI Data of Consult Consult date: 12/12/24 Requesting Physician: Yasmany Levy MD Admitting Provider: Yasmany Levy MD Attending Provider: Yasmany Levy MD Primary Care Provider: Blake Gomez PA-C Consult Narrative Reason for consult: ANGELA History of present illness: Vahe is a 59-year-old male with past medical history of hypertension, diabetes, hypothyroidism, HFpEF, peripheral neuropathy, BPH, gastritis, and CAD who presented to [facility] on December 11, 2024 for an evaluation of nausea and nonbloody vomiting and nonbloody episodes of diarrhea (10 times). Patient reports that he has been having ongoing symptoms like this since 2019 in which she had his cholecystectomy for cholelithiasis. Patient reports that he was having diarrhea so much that she could not get off the toilet, and also was having about 3 episodes of vomiting. He is unsure if food or even certain foods trigger his symptoms. He has been experiencing diarrhea off and on for some time now. He reports that he has seen a director digital advertising in 2019 and had a EGD and colonoscopy and they had just showed gastritis and which he takes omeprazole for. He also notes a recent ear infection in which she took amoxicillin for and that was about a month ago. He says that his symptoms with his nausea, vomiting and diarrhea impede him from going out the house and traveling. He denies any chest pain, shortness of breath or abdominal pain, however he denies any recent travel or anyone around him having similar symptoms. She denies any changes to his dietary habits. Says that he routinely goes to his primary care doctor and gets labs done frequently, however he still does not know fully why he is having all the symptoms. ED course: ED vitals: BP 188/62, HR 68, O2 sat 100% on room air ED labs: Leukocytosis, normocytic anemia, hypokalemia, BUN 36, creatinine 2.7, glucose 190, lactic acid 5.4 later downtrending to 3.4 after 2 L of IV fluids, BNP 120, UA shows 4+ glucose, 2+ protein CT abdomen pelvis done showed No evidence of small bowel obstruction, free air or fluid collection. Findings suspicious for rectal fecal impaction. Thickening versus underdistention of the transverse colon and descending colon with pericolonic fat stranding/hyperemia. Possibility of mild colitis cannot be excluded. Findings suspicious for mild gastritis. In the ED patient received 2 L NS, Zosyn, morphine, Zofran. Medicine was consulted and patient was admitted to the floors PMHx: As above Surgeries: Cholecystectomy, left big toe amputation, appendectomy about 30 years ago Meds: Aspirin, Coreg, Jardiance, Lasix, gabapentin, glargine, Synthroid, losartan, metformin, pravastatin, Flomax Allergies: None Family Hx: Family history significant for hypertension and diabetes no known allergies Social Hx: Born in [place], came to the [place] in the early . 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 Has never been a heavy drinker, no smoking history or no history of oral or IV drug use. Retired in 2019 due to his ongoing symptoms. Currently lives with partner and has some kids in [place]. Does not travel anywhere due to his ongoing symptoms. cc:: cc: Yasmany Levy MD Review of Systems Review of Systems Narrative Review of Systems: ROS was reviewed and otherwise negative unless stated directly in the HPI Exam Vital Signs Temp Pulse Resp BP Pulse Ox O2 Del Method 97.8 F 75 17 167/79 H 98 Room Air 12/12/24 12:00 12/12/24 12:00 12/12/24 12:00 12/12/24 12:00 12/12/24 12:00 12/12/24 12:00 Narrative Exam General: AAOx3, NAD, HEENT: Slightly dry mucous membranes, conjunctiva clear, EOMI, PERRLA, Cardiovascular: S1, S2, radial pulses +2 bilat, RRR Pulmonary: CTAB bilat no cough, no wheezing GI: Slight tenderness to palpitation, no guarding, rigidity, rebound tenderness or distension, bowel sounds present Extremities: No presence of trace or pitting edema in lower extremities bilaterally, dorsalis pedis pulses +2 bilaterally Neuro: AAOx3, no focal motor or sensory deficits in the UE or LE bilat Psych: Good judgement, thought and behavior Results Labs 12/12/24 04:57 12/12/24 04:57 Labs: Short CBC 12/11/24 12/12/24 Range/Units 21:45 04:57 WBC 12.4 H 9.8 (3.8-10.6) Thou/mm3 Hgb 10.4 L 9.6 L (13.5-16.0) g/dL Hct 29.1 L 27.8 L (41.0-53.0) % Plt Count 254 223 D (140-440) Thou/mm3 BMP 12/11/24 12/12/24 21:45 04:57 Sodium 137 142 Potassium 3.2 L 4.7 D Chloride 100 107 Carbon Dioxide 21.0 22.4 BUN 36 H 30 H Creatinine 2.7 H 2.2 H D Glucose 190 H 99 D Calcium 9.5 8.2 L Cardiac Enzymes 12/11/24 Range/Units 21:45 Troponin I < 0.020 (0.0-0.045) ng/mL Liver Function 12/11/24 12/12/24 Range/Units 21:45 04:57 Total Bilirubin 0.5 0.5 (0.3-1.2) mg/dL ALT 13 10 (10-49) U/L Alkaline Phosphatase 106 94 (46-116) U/L Albumin 4.1 3.4 D (3.4-4.8) gm/dL Urine 12/11/24 Range/Units 20:45 Urine Color Colorless A (Lt Yel-Yel) Urine Clarity Clear (Clear/Hazy) Urine pH 7.0 (5.0-7.0) Ur Specific [place] 1.016 (1.001-1.035) Urine Protein 2+ A (Neg - Trace) Urine Glucose (UA) 4+ A (Negative) Quality Measures Quality Measures none Medications Home Medications and Allergies Home Medications ?Medication ?Instructions ?Recorded ?Confirmed ?Type pravastatin 40 mg tablet 40 mg PO QDAY 12/21/18 12/12/24 History tamsulosin 0.4 mg capsule 0.4 mg PO QDAY 07/15/19 12/12/24 History aspirin 81 mg tablet,delayed 81 mg PO QDAY 12/07/23 12/12/24 History release carvedilol 6.25 mg tablet 6.25 mg PO BID 12/07/23 12/12/24 History amoxicillin 875 mg-potassium 1 tab PO Q12H 12/12/24 12/12/24 History clavulanate 125 mg tablet gabapentin 600 mg tablet 600 mg PO Q12H 12/12/24 12/12/24 History insulin glargine 100 unit/mL (3 36 unit subcut .daily 12/12/24 12/12/24 History mL) subcutaneous pen losartan 25 mg tablet 25 mg PO BID 12/12/24 12/12/24 History Allergies Allergy/AdvReac Type Severity Reaction Status Date / Time No Known Allergies Allergy Verified 07/15/19 10:38 Visit Medications Acetaminophen (Acetaminophen 325 Mg Tablet) 650 mg PO Q6H PRN PRN Reason: Fever >99.5 Stop: 01/11/25 02:11 Acetaminophen (Acetaminophen 500 Mg Tablet) 1,000 mg PO Q6H PRN PRN Reason: PAIN SCALE 1-3 (mild Stop: 01/11/25 02:11 Azithromycin (Azithromycin 250 Mg Tablet) 500 mg PO QDAY [facility] Stop: 12/15/24 08:59 Last Admin: 12/12/24 08:25 Dose: 500 mg Carvedilol (Carvedilol 3.125 Mg Tablet) 6.25 mg PO BIDWM [facility] Stop: 01/11/25 17:29 Dextrose (Dextrose 50%-Water Inj 50 Ml Syringe) 25 ml IV Q15MIN PRN PRN Reason: BG 50-70 responsive npo pt Stop: 01/11/25 02:18 Dextrose (Dextrose 50%-Water Inj 50 Ml Syringe) 50 ml IV Q15MIN PRN PRN Reason: BG <50 OR BG <70 & pt unresponsive Stop: 01/11/25 02:18 Docusate Sodium (Docusate Sod 100 Mg Capsule) 100 mg PO QDAY [facility]; Protocol Stop: 01/11/25 08:59 Last Admin: 12/12/24 08:26 Dose: 100 mg Enoxaparin Sodium (Enoxaparin Sod Inj 40 Mg/0.4 Ml Syringe) 40 mg SC QDAY [facility] Stop: 12/26/24 08:59 Last Admin: 12/12/24 08:26 Dose: 40 mg Gabapentin (Gabapentin 300 Mg Capsule) 600 mg PO TID [facility] Stop: 01/11/25 05:59 Last Admin: 12/12/24 05:13 Dose: 600 mg Glucagon (Glucagon Inj 1 Mg Vial) 1 mg IM Q15MIN PRN PRN Reason: BG <70, and no IV access Sodium Chloride (Ns) 1,000 mls @ 75 mls/hr IV .[id number] [facility] Stop: 12/12/24 15:37 Last Admin: 12/12/24 05:04 Dose: 75 mls/hr Insulin Human Lispro (Insulin Lispro (Admelog) 1 Unit/0.01 Ml Unit) 0 unit SC AC [facility]; Protocol Stop: 01/11/25 07:29 Last Admin: 12/12/24 11:35 Dose: 1 unit Levothyroxine Sodium (Levothyroxine Sodium 25 Mcg Tablet) [facility] Stop: 01/11/25 05:59 Last Admin: 12/12/24 05:13 Dose: 25 mcg Nifedipine (Nifedipine Xl 30 Mg Tabcr) 60 mg PO QDAY [facility] Stop: 01/11/25 02:59 Last Admin: 12/12/24 08:54 Dose: Not Given Ondansetron HCl (Ondansetron Inj 2 Mg/Ml Inj 2 Ml) 4 mg IVP Q6H PRN; Protocol PRN Reason: NAUSEA OR VOMITING Stop: 01/11/25 02:11 Pantoprazole Sodium (Pantoprazole Inj 40 Mg Vial) 40 mg IVP QDAY [facility] Stop: 01/11/25 08:59 Last Admin: 12/12/24 08:26 Dose: 40 mg Sennosides (Senna Tablet) 1 tab PO QDAY [facility]; Protocol Stop: 01/11/25 08:59 Last Admin: 12/12/24 08:26 Dose: 1 tab Discontinued Medications Acetaminophen (Acetaminophen 325 Mg Tablet) 1,000 mg PO Q6H PRN PRN Reason: PAIN SCALE 1-3 (mild Stop: 01/11/25 02:11 Sodium Chloride (Ns) 1,000 mls @ 999 mls/hr IV .Q1H1M ONE Stop: 12/11/24 22:36 Last Infusion: 12/11/24 22:45 Dose: Infused Sodium Chloride (Ns) 1,000 mls @ 999 mls/hr IV .Q1H1M ONE Stop: 12/12/24 00:02 Last Infusion: 12/12/24 00:02 Dose: Infused Piperacillin/Tazobactam/Dextrose (Zosyn) 2.25 gm in 50 mls @ 100 mls/hr IV X1 ONE Stop: 12/11/24 23:32 Last Infusion: 12/12/24 00:09 Dose: Infused Magnesium Sulfate (Magnesium Sulfate Ivpb) 2 gm in 50 mls @ 25 mls/hr IV X1 ONE Stop: 12/12/24 03:43 Last Infusion: 12/12/24 04:01 Dose: Infused Potassium Chloride (Kcl Ivpb) 10 meq in 100 mls @ 100 mls/hr IV Q1H NILAM Stop: 12/12/24 05:43 Last Admin: 12/12/24 05:17 Dose: 100 mls/hr Labetalol HCl (Labetalol Inj 5 Mg/Ml Vial 20 Ml) 10 mg IVP X1 ONE Stop: 12/12/24 00:20 Last Admin: 12/12/24 00:43 Dose: 10 mg Labetalol HCl (Labetalol Inj 5 Mg/Ml Vial 20 Ml) 10 mg IVP Q6HR PRN PRN Reason: SBP>180 Stop: 01/11/25 02:23 Morphine Sulfate (Morphine Sulf Inj 10 Mg/Ml Vial) 3 mg IVP X1 ONE Stop: 12/11/24 22:25 Last Admin: 12/11/24 22:34 Dose: 3 mg Nifedipine (Nifedipine Xl 30 Mg Tabcr) 60 mg PO QDAY NILAM Stop: 01/11/25 08:59 Ondansetron HCl (Ondansetron Inj 2 Mg/Ml Inj 2 Ml) 4 mg IVP X1 ONE Stop: 12/11/24 22:25 Last Admin: 12/11/24 22:33 Dose: 4 mg Assessment & Plan Plan Assessment 59-year-old male with past medical history of hypertension, diabetes, hypothyroidism, HFpEF presented to the ED due to nausea and vomiting. Patient will be admitted for colitis and hypertensive urgency/emergency. #Acute Kidney injury on CKD #Lactic acidosis, resolved DDx: Prerenal versus ATN versus obstructive History of stones, BPH: Yes to both per patient No Singh at this time Likely hypovolemia, related to GI losses Creatinine today is 2.2, BUN 30 Imaging showed nonobstructing tiny renal calculi, however they are nonobstructing or exhibit hydronephrosis Unsure what stage CKD pt has, need to determine baseline, however pt has had ANGELA on CKD before in the past Etiology of CKD could be attributed to long-standing uncontrolled diabetes (A1c 10.5) Plan: ? Continue with normal saline 75 cc/hour ? Avoid nephrotoxins ? Renally dose medications ? Stopping Lovenox and switching to Heparin subq for DVT prophylaxis ? Urine Cr and lytes ? Strict JOSE's ? Renal ultrasound ? Trend CMP #Colitis #Vomiting #Diarrhea Has had ongoing symptoms since 2019 Patient has had colonoscopy and EGD done before Unlikely to be an acute infection He needs further workup for IBS, IBD, microscopic colitis Patient may also benefit from C. difficile testing and other stool testing as patient recently used antibiotics Patient using azithromycin for colitis, could consider budesonide at this point Plan: ? Consider C. difficile testing ? Consider GI consult ? Consider stool cultures, WBCs, calprotectin ? Consider budesonide ? Antiemetics #Hypertensive emergency #HFpEF [55-60%] #Diabetes mellitus type 2 #Peripheral neuropathy #Hypothyroidism Above handled by primary hospitalist team Patient seen and care discussed with my attending physician, Dr. Arleen Payton, PGY-1 Attending Provider Attestation/Addendum Patient seen and examined with resident physician Dr. Tate. Note reviewed, agree with findings and recommendations. Thank you Dr. Levy for allowing me to participate in the care of Ms. Dasilva
--- NOTE | 2024-12-12 13:58 | XR_ITS ---
Examination: Retroperitoneal ultrasound, complete Technique: Multiple high resolution grayscale images of the retroperitoneum obtained, including kidneys and bladder. Exam date and time:December 12, 2024 1626 hours INDICATIONS: Acute renal insufficiency on laboratory examination this week FINDINGS: Right kidney 11.4 cm cortex 3.0 cm Left kidney 10.8 cm cortex 1.6 cm Moderate renal parenchymal scar formation. No hydronephrosis No bladder mass or bladder calculi. Bladder prevoid volume 487 cc, unable to void Prostatomegaly, 4.8 x 3.7 x 5.0 cm volume 46.1 cc no prostate nodules. IMPRESSION: Left renal cortical thinning Moderate bilateral renal parenchymal scar formation No hydronephrosis is
--- NOTE | 2024-12-12 16:26 | PC.SS ---
SS met with patient regarding his d/c plan. Pt is alert/oriented. Pt was admitted for Nausea Vomiting. Pt confirmed demographic and contact information is correct on facesheet. Pt resides with his significant other. Pt ambulates independently without assistance or DME. Pt is ok with all ADLs. Patient?s pharmacy of choice is [facility] on [address]. Pt named his life partner, Andreina Wang medical decision maker if he is unable. SS provided verbal choices for d/c to SNF or home. Patient?s choice is to return home upon d/c. Pt states he is diabetic, has glucometer, and test strips. Pt states he takes insulin injections 2 x day, am and pm. D/C plan: Return home Next of Kin: Andreina Wang, , phone# [phone] PCP: Remberto Gomez from [facility] Address: Correct on facesheet
[2024-12-12] MEDS: carVEDILOL 3.125 MG TABLET 6.25 MG PO (17:09)
[2024-12-12 19:45] LABS: Chloride,Urine Random 36.8 mMol/L (55.0-125.0); Creatinine,Random Urine 41 mg/dL (30-125); Potassium,Urine Random 19 mMol/L (12-62); Sodium,Urine Random 38.9 mMol/L (20.0-110.0)
[2024-12-13] VITALS (15 sets, daily range): BP systolic 70–145; BP diastolic 41–73; PULSE 47–67; RESP 12–98; TEMP 35.6–36.9; O2SAT 97–99
[2024-12-13] MEDS: GABAPENTIN 300 MG CAPSULE 600 MG PO (05:25)
[2024-12-13] MEDS: LEVOTHYROXINE SODIUM 25 MCG TABLET PO (05:25)
[2024-12-13 05:56] LABS: Basophils % (Auto) 1 % (0-2.5); Eosinophils # (Auto) 0.1 Thou/mm3 (0.0-0.5); Eosinophils % (Auto) 3 % (0-10); Hematocrit 24.5 % (41.0-53.0); Immature Granulocytes % (Auto) 0 % (0-0); Immature Granulocytes Auto 0.02 Thou/mm3 (0.00-0.00); Lymphocytes # (Auto) 1.4 Thou/mm3 (1.0-4.8); Lymphocytes % (Auto) 29 % (10-50); Mean Corpuscular HGB Conc 35.1 g/dl (31.0-37.0); Mean Corpuscular Hemoglobin 29.7 pg (25.0-35.0); Mean Corpuscular Volume 85 fL (80-100); Monocytes # (Auto) 0.3 Thou/mm3 (0.0-0.8); Monocytes % (Auto) 7 % (0-12); Neutrophils % (Auto) 61 % (37-80); Nucleated Red Blood Cell % 0 /100 WBC (0); Platelet Count 209 Thou/mm3 (140-440); RDW Standard Deviation 39.8 fL (35.1-43.9); White Blood Count 4.8 Thou/mm3 (3.8-10.6)
[2024-12-13 05:58] LABS: Hemoglobin 8.6 g/dL (13.5-16.0)
[2024-12-13 06:42] LABS: Alanine Aminotransferase < 7 U/L (10-49); Albumin, Serum 2.9 gm/dL (3.4-4.8); Albumin/Globulin Ratio 1.5 (1.2-2.2); Alkaline Phosphatase 88 U/L (46-116); Anion Gap 9 (7-16); Aspartate Amino Transferase 12 U/L (0-34); BUN/Creatinine Ratio 11 Ratio (12-20); Bilirubin,Total 0.4 mg/dL (0.3-1.2); Blood Urea Nitrogen 23 mg/dL (9-23); Calcium 7.9 mg/dL (8.3-10.6); Calcium (Corrected) 8.8 mg/dL (8.5-10.1); Carbon Dioxide 23.5 mMol/L (20.0-31.0); Chloride 107 mMol/L (98-107); Creatinine (Component) 2.1 mg/dL (0.6-1.3); Estimated Creatinine Clearance 33.3 mL/min (>60); Globulin 1.9 gm/dL (2.3-3.5); Glucose 259 mg/dL (74-106); Magnesium 2.1 mg/dL (1.6-2.6); Osmolality,Calculated 290 (275-295); Phosphorous 2.9 mg/dL (2.4-5.1); Potassium 4.5 mMol/L (3.4-5.1); Sodium 139 mMol/L (136-145); Total Protein 4.8 gm/dL (5.7-8.2); eGFR 35 See Note
[2024-12-13] MEDS: INSULIN LISPRO (AdmeLOG) 1 UNIT/0.01 ML UNIT SC ×3 (07:28→17:44)
[2024-12-13] MEDS: INSULIN GLARGINE (Lantus) 5 UNIT/0.05 ML (PER 5 UNITS) 8 UNIT SC (08:10)
[2024-12-13] MEDS: NIFEdipine XL 30 MG TABCR 60 MG PO (08:11)
[2024-12-13] MEDS: HEPARIN SOD INJ 5000 UNIT/ML VIAL SC (08:11)
[2024-12-13] MEDS: GABAPENTIN 100 MG CAPSULE PO (08:12)
[2024-12-13] MEDS: AZITHROMYCIN 250 MG TABLET 500 MG PO (08:12)
[2024-12-13] MEDS: carVEDILOL 3.125 MG TABLET 6.25 MG PO (08:12)
[2024-12-13] MEDS: PANTOPRAZOLE 40 MG TABLET PO ×2 (08:12→20:48)
[2024-12-13] MEDS: DOCUSATE SOD 100 MG CAPSULE PO (08:13)
[2024-12-13] MEDS: SENNA TABLET 1 TAB PO (08:13)
--- NOTE | 2024-12-13 08:55 | ESPR_ITS ---
Documentation for date of: 12/13/24 Subjective Subjective Interval history: 12/13/2024: Patient examined at bedside today. No acute overnight events. Patient reports improvement in his symptoms including nausea vomiting and diarrhea. BUN/creatinine today is 23 and 2.1 respectively, potassium 4.5, phosphorus 2.9, magnesium 2.1, calcium 8.8, sodium 139, fasting blood sugar 259. White count 4.8, hemoglobin 8.6. Will continue with current management. Exam Vital Signs Temp Pulse Resp BP Pulse Ox O2 Del Method 98.4 F 59 L 18 145/71 H 98 Room Air 12/13/24 04:00 12/13/24 08:12 12/13/24 07:39 12/13/24 08:12 12/13/24 04:00 12/13/24 04:00 Narrative Exam General: AAOx3, NAD, HEENT: Moist mucous membranes, conjunctiva clear, EOMI, PERRLA, Cardiovascular: S1, S2, radial pulses +2 bilat, RRR Pulmonary: CTAB bilat no cough, no wheezing GI: Slight tenderness to palpitation, no guarding, rigidity, rebound tenderness or distension, bowel sounds present Extremities: No presence of trace or pitting edema in lower extremities bilaterally, dorsalis pedis pulses +2 bilaterally Neuro: AAOx3, no focal motor or sensory deficits in the UE or LE bilat Psych: Good judgement, thought and behavior Objective Labs 12/15/24 05:37 12/15/24 05:37 Labs: Laboratory Results - last 24 hr 12/12/24 12/13/24 19:20 05:21 WBC 4.8 D RBC 2.90 L Hgb 8.6 L Hct 24.5 L MCV 85 MCH 29.7 MCHC 35.1 RDW Std Deviation 39.8 Plt Count 209 Neut % (Auto) 61 Lymph % (Auto) 29 [place] % (Auto) 7 Eos % (Auto) 3 Baso % (Auto) 1 Neut # (Auto) 3.0 Lymph # (Auto) 1.4 [place] # (Auto) 0.3 Eos # (Auto) 0.1 Baso # (Auto) 0.0 Immature Gran # (Auto) 0.02 H Absolute Nucleated RBC 0.00 Immature Gran % 0 Nucleated RBC % 0 Sodium 139 Potassium 4.5 Chloride 107 Carbon Dioxide 23.5 Anion Gap 9 BUN 23 Creatinine 2.1 H Estim Creat Clear Calc 33.3 L eGFR 35 L BUN/Creatinine Ratio 11 L Glucose 259 H D Calculated Osmolality 290 Calcium 7.9 L Corrected Calcium 8.8 Phosphorus 2.9 Magnesium 2.1 Total Bilirubin 0.4 AST 12 ALT < 7 L Alkaline Phosphatase 88 Total Protein 4.8 L Albumin 2.9 L D Globulin 1.9 L Albumin/Globulin Ratio 1.5 Ur Random Creatinine 41 Ur Random Sodium 38.9 Ur Random Potassium 19 Ur Random Chloride 36.8 L Quality Measures Quality Measures none Assessment & Plan Assessment Current Active Medications: Generic Name Dose Route Start Last Admin Trade Name Freq PRN Reason Stop Dose Admin Acetaminophen 650 mg 12/12/24 02:12 Acetaminophen 325 Mg Tablet PO 01/11/25 02:11 Q6H PRN Fever >99.5 Acetaminophen 1,000 mg 12/12/24 09:02 Acetaminophen 500 Mg Tablet PO 01/11/25 02:11 Q6H PRN PAIN SCALE 1-3 (mild Azithromycin 500 mg 12/12/24 09:00 12/13/24 08:12 Azithromycin 250 Mg Tablet PO 12/15/24 08:59 500 mg QDAY NILAM Administration Carvedilol 6.25 mg 12/12/24 17:30 12/13/24 08:12 Carvedilol 3.125 Mg Tablet PO 01/11/25 17:29 6.25 mg BIDWM NILAM Administration Dextrose 25 ml 12/12/24 02:19 Dextrose 50%-Water Inj 50 Ml Syringe IV 01/11/25 02:18 Q15MIN PRN BG 50-70 responsive npo pt Dextrose 50 ml 12/12/24 02:19 Dextrose 50%-Water Inj 50 Ml Syringe IV 01/11/25 02:18 Q15MIN PRN BG <50 OR BG <70 & pt unresponsive Docusate Sodium 100 mg 12/12/24 09:00 12/13/24 08:13 Docusate Sod 100 Mg Capsule PO 01/11/25 08:59 100 mg QDAY NILAM Administration Protocol Gabapentin 100 mg/ Gabapentin 400 mg 12/13/24 21:00 300 mg PO 01/12/25 20:59 BID NILAM Glucagon 1 mg 12/12/24 02:19 Glucagon Inj 1 Mg Vial IM Q15MIN PRN BG <70, and no IV access Heparin Sodium (Porcine) 5,000 unit 12/13/24 09:00 12/13/24 08:11 Heparin Sod Inj 5000 Unit/Ml Vial SC 12/27/24 08:59 5,000 unit BID NILAM Administration Insulin Glargine 8 unit 12/13/24 07:54 12/13/24 08:10 Insulin Glargine (Lantus) 5 Unit/0.05 Ml (Per 5 Units) SC 01/12/25 07:53 8 unit QDAY NILAM Administration Insulin Human Lispro 0 unit 12/12/24 07:30 12/13/24 07:28 Insulin Lispro (Admelog) 1 Unit/0.01 Ml Unit SC 01/11/25 07:29 3 unit AC NILAM Administration Protocol Levothyroxine Sodium 25 mcg 12/12/24 06:00 12/13/24 05:25 Levothyroxine Sodium 25 Mcg Tablet PO 01/11/25 05:59 25 mcg ACBR NILAM Administration Nifedipine 60 mg 12/12/24 03:00 12/13/24 08:11 Nifedipine Xl 30 Mg Tabcr PO 01/11/25 02:59 60 mg QDAY NILAM Administration Ondansetron HCl 4 mg 12/12/24 02:12 Ondansetron Inj 2 Mg/Ml Inj 2 Ml IVP 01/11/25 02:11 Q6H PRN NAUSEA OR VOMITING Protocol Pantoprazole Sodium 40 mg 12/13/24 09:00 12/13/24 08:12 Pantoprazole 40 Mg Tablet PO 01/11/25 08:59 40 mg QDAY NILAM Administration Pharmacy Consult 1 each 12/12/24 13:17 Pharmacy Renal Dose Adjustment 1 Ea XX 01/11/25 13:16 PRN PRN CONSULT Sennosides 1 tab 12/12/24 09:00 12/13/24 08:13 Senna Tablet PO 01/11/25 08:59 1 tab QDAY NILAM Administration Protocol Plan Assessment 59-year-old male with past medical history of hypertension, diabetes, hypothyroidism, HFpEF presented to the ED due to nausea and vomiting. Patient will be admitted for colitis and hypertensive urgency/emergency. #Acute Kidney injury on CKD, improving #Lactic acidosis, resolved DDx: Prerenal versus ATN versus obstructive History of stones, BPH: Yes to both per patient No Singh at this time Likely hypovolemia, related to GI losses Creatinine today is 2.2, BUN 30 Imaging showed nonobstructing tiny renal calculi, however they are nonobstructing or exhibit hydronephrosis Unsure what stage CKD pt has, need to determine baseline, however pt has had ANGELA on CKD before in the past Etiology of CKD could be attributed to long-standing uncontrolled diabetes (A1c 10.5) FeNa: 1.5% (Indeterminate) Pt's new baseline Cr may be 2.0 UOP 1750 mL Renal ultrasound shows: Moderate bilateral renal parenchymal scarring Left kidney shows cortical thinning Plan: ? Avoid nephrotoxins ? Renally dose medications ? Strict JOSE's ? Trend CMP #Colitis #Vomiting #Diarrhea Has had ongoing symptoms since 2019 Patient has had colonoscopy and EGD done before Unlikely to be an acute infection He needs further workup for IBS, IBD, microscopic colitis Patient may also benefit from C. difficile testing and other stool testing as patient recently used antibiotics Patient using azithromycin for colitis, could consider budesonide at this point Plan: ? Consider C. difficile testing ? Consider GI consult ? Consider stool cultures, WBCs, calprotectin ? Consider budesonide ? Antiemetics #Hypertensive emergency #HFpEF [55-60%] #Diabetes mellitus type 2 #Peripheral neuropathy #Hypothyroidism Above handled by primary hospitalist team Patient seen and care discussed with my attending physician, Dr. Arleen Payton, PGY-1 Attending Provider Attestation/Addendum Patient seen and examined with resident physician Dr. Tate. Note reviewed, agree with findings and recommendations. Patient currently seen in medical floor. Comfortable. Creatinine slowly improving.
--- NOTE | 2024-12-13 09:10 | PC.SS ---
Follow up note: On IV antibiotic. Waiting for cultures. Pt will return home upon dc.
--- NOTE | 2024-12-13 10:59 | CHAP ---
Patient was visited by the Spiritual Care Volunteer who prayed for them. (Volunteer was in the hospital from 10:30-10:59)
[2024-12-13] MEDS: IRON SUCROSE CPLX INJ 20 MG/ML VIAL 5 ML 200 MG IVP (11:32)
--- NOTE | 2024-12-13 13:54 | XR_ITS ---
Examination: Abdomen AP single view Technique: AP portable supine abdomen, single view Exam date and time: December 13, 2024 1416 hours INDICATIONS: Abdominal pain nausea vomiting this week. FINDINGS: Multiple air distended small bowel loops in the midabdomen Abundant stool in the right colon No free air Surgical clips upper right abdomen IMPRESSION: Small bowel ileus pattern Abundant stool in the right colon
--- NOTE | 2024-12-13 13:57 | EKG_ITS ---
[facility] Test Date: 2024-12-13 Pat Name: JU PINON Department: Room: 69A Gender: Male Recruitment Coordinator: GUCCI : 1965 Requested By: Julio César Ma Order Number: [id number] Reading MD: Julio César Ma Measurements Intervals [place] Rate: 53 P: 7 GA: 129 QRS: 19 QRSD: 98 T: 53 QT: 451 QTc: 424 Interpretive Statements SINUS BRADYCARDIA NONSPECIFIC T-WAVE ABNORMALITY Compared to ECG 12/04/2023 04:35:18 T-wave abnormality now present /store/S0/[id number]
[2024-12-13] MEDS: RINGERS LACTATED 1000 ML 1,000 ML 999 ML IV ×2 (14:06→14:18)
[2024-12-13] MEDS: CALCIUM CHLORIDE 10% INJ 10 ML SYRG IV (14:11)
[2024-12-13] MEDS: ATROPINE SULF INJ 0.1 MG/ML SYR 10 ML 1 MG IV (14:11)
[2024-12-13 14:24] LABS: Lactate (Lactic Acid) 3.6 mMol/L (0.4-2.0)
[2024-12-13 14:25] LABS: Basophils % (Auto) 1 % (0-2.5); Eosinophils # (Auto) 0.2 Thou/mm3 (0.0-0.5); Eosinophils % (Auto) 3 % (0-10); Hematocrit 23.3 % (41.0-53.0); Immature Granulocytes % (Auto) 0 % (0-0); Immature Granulocytes Auto 0.02 Thou/mm3 (0.00-0.00); Lymphocytes # (Auto) 1.9 Thou/mm3 (1.0-4.8); Lymphocytes % (Auto) 32 % (10-50); Mean Corpuscular HGB Conc 35.2 g/dl (31.0-37.0); Mean Corpuscular Hemoglobin 29.8 pg (25.0-35.0); Mean Corpuscular Volume 85 fL (80-100); Monocytes # (Auto) 0.4 Thou/mm3 (0.0-0.8); Monocytes % (Auto) 6 % (0-12); Neutrophils # (Auto) 3.4 Thou/mm3 (1.8-7.7); Neutrophils % (Auto) 58 % (37-80); Nucleated Red Blood Cell % 0 /100 WBC (0); Platelet Count 193 Thou/mm3 (140-440); RDW Standard Deviation 38.6 fL (35.1-43.9); Red Blood Count 2.75 Miln/mm3 (4.50-5.90); White Blood Count 5.9 Thou/mm3 (3.8-10.6)
[2024-12-13 14:32] LABS: Hemoglobin 8.2 g/dL (13.5-16.0)
--- NOTE | 2024-12-13 14:37 | PC.NURSE ---
Report given to Ha BYERS in Tele.
--- NOTE | 2024-12-13 14:37 | PD.RESEVENT ---
Documentation for date of: 12/13/24 Event Note Event Note: Rapid response was called at 1:55 pm for nausea and severe abdominal pain as well as found to be hypotensive. On arrival patient's appeared pale, however could responded to question and answers, was not in acute distress, and could protect his airways. Pt denies chest pain and shortness of breath. Pt stated he was having dizziness, blurry vision and complained of epigastric pain. Finger stick glucose was 220's. On focused exam findings were significant for epigastric tenderness, pt's blood pressure was found to be systolic 70's and bradycardia with HR of 40's. We ordered EKG, KUB, CBC, CMP, troponins, 2L bolus of LR. Pt continue to be hypotensive therefore pt was given calcium chloride, glucagon, atropine. KUB showed abundant stool therefore bowel regimen is ordered. EKG showed sinus bradycardia with HR in 50's. Pt's symptoms improved at the end of rapid, BP improved to 110/56, Pt is transferred to telemetry for close monitoring. Assessment and plan discussed with my attending physician Dr. Sherman Mendoza (PGY-1)- Internal medicine resident Symptomatic bradycardia with hypotension, IV fluid resuscitation, suspecting beta-elijah overdose?in light of worsening kidney function, glucagon, calcium chloride, atropine 1 mg x 1. Blood pressure started improving transfer to telemetry, consider transfer to ICU if he is not improving or worsening
--- NOTE | 2024-12-13 14:59 | PC.NURSE ---
Was on lunch and rapid response called by Miley BYERS low blood pressure. Patient moved to telemetry
[2024-12-13 15:03] LABS: Alanine Aminotransferase 8 U/L (10-49); Albumin, Serum 2.8 gm/dL (3.4-4.8); Albumin/Globulin Ratio 1.8 (1.2-2.2); Alkaline Phosphatase 79 U/L (46-116); Anion Gap 8 (7-16); Aspartate Amino Transferase 12 U/L (0-34); BUN/Creatinine Ratio 10 Ratio (12-20); Bilirubin,Total 0.3 mg/dL (0.3-1.2); Blood Urea Nitrogen 22 mg/dL (9-23); Calcium 9.8 mg/dL (8.3-10.6); Calcium (Corrected) 10.8 mg/dL (8.5-10.1); Carbon Dioxide 19.6 mMol/L (20.0-31.0); Chloride 102 mMol/L (98-107); Creatinine (Component) 2.2 mg/dL (0.6-1.3); Estimated Creatinine Clearance 31.8 mL/min (>60); Globulin 1.6 gm/dL (2.3-3.5); Glucose 271 mg/dL (74-106); Osmolality,Calculated 274 (275-295); Potassium 4.4 mMol/L (3.4-5.1); Sodium 130 mMol/L (136-145); Total Protein 4.4 gm/dL (5.7-8.2); Troponin I < 0.020 ng/mL (0.0-0.045); eGFR 33 See Note
[2024-12-13] MEDS: bisacodyL 5 MG TABEC PO (15:26)
[2024-12-13] MEDS: MIDODRINE 5 MG TABLET 10 MG PO (15:27)
--- NOTE | 2024-12-13 15:53 | XR_ITS ---
Examination: CT abdomen and pelvis without contrast. Coronal 3-D reconstructions. Sagittal 2-D reconstructions. Date and time of exam:December 13, 2024 1714 hours comparison December 12, 2024 Indications: Abdominal pain and hypotension sepsis today, history of kidney stones CTDI: vol (mGy): 8.53 DLP: (mGycm): 518 Technique: Axial images of the abdomen have been obtained, 3 mm slice thickness Intravenous contrast material has not been administered. Low dose protocols were performed. One or more of the following dose reduction techniques were used; automated exposure control, adjustment of the mA and/or KV according to patient size, use of iterative reconstruction technique. Findings: Minimal bilateral pleural effusions Focal liver lesions Small retrocardiac gastric hernia Fluid distended small bowel loops with wall thickening of several small bowel loops Minimal free fluid in the abdomen Renal calcifications which may be arterial, no hydronephrosis Heavy abdominal aortic calcification No bowel obstruction Mild free fluid in the pelvis Urinary bladder is intact IMPRESSION: Abnormal small bowel, fluid distended and significant wall thickening Recommend repeating this study with intravenous contrast to exclude ischemic small bowel
--- NOTE | 2024-12-13 16:18 | PD.RESPRO ---
Documentation for date of: 12/13/24 Subjective Subjective Interval history: No acute overnight events reported. Patient seen and examined at bedside this morning. Vitals are stable labs are reviewed patient states his nausea vomiting has completely resolved and was able to tolerate oral diet. Patient states he continues to have mild abdominal pain but significant improvement from yesterday. Later in the afternoon patient had a rapid response for worsening abdominal pain and hypotension. Patient seen again in telemetry endorses to improvement in his symptoms. Will continue to close the monitor the patient and telemetry and will hold antihypertensives since patient is rapid was due to hypotension. Patient is also being followed by nephrology team. Upon discharge patient will need discontinuation of metformin and renally adjust the gabapentin. Exam Vital Signs Temp Pulse Resp BP Pulse Ox O2 Del Method 96.9 F 65 18 95/53 L 98 Room Air 12/13/24 12:00 12/13/24 15:27 12/13/24 12:00 12/13/24 15:27 12/13/24 12:00 12/13/24 12:00 Narrative Exam GENERAL: A&Ox3 . senegalese speaking, cooperative, Awake, Not in acute distress NEURO: no focal neurological deficits HEENT: Atraumatic, Normocephalic. mucous membranes moist. Eyes open, symmetrical, & clear HEART: Normal Heart Sounds LUNGS: Clear to auscultation with no wheezing or crackles. ABDOMEN: soft, non-distended, non-tender, bowel sounds heard, no guarding or rebound tenderness SKIN: No Rash or ecchymoses EXTREMITIES: No edema, tenderness, able to move all 4 extremities, pedal pulses palpated Objective Labs 12/16/24 05:25 12/16/24 05:25 Labs: Laboratory Results - last 24 hr 12/12/24 12/13/24 12/13/24 19:20 05:21 14:15 WBC 4.8 D 5.9 RBC 2.90 L 2.75 L Hgb 8.6 L 8.2 L Hct 24.5 L 23.3 L MCV 85 85 MCH 29.7 29.8 MCHC 35.1 35.2 RDW Std Deviation 39.8 38.6 Plt Count 209 193 Neut % (Auto) 61 58 Lymph % (Auto) 29 32 [place] % (Auto) 7 6 Eos % (Auto) 3 3 Baso % (Auto) 1 1 Neut # (Auto) 3.0 3.4 Lymph # (Auto) 1.4 1.9 [place] # (Auto) 0.3 0.4 Eos # (Auto) 0.1 0.2 Baso # (Auto) 0.0 0.0 Immature Gran # (Auto) 0.02 H 0.02 H Absolute Nucleated RBC 0.00 0.00 Immature Gran % 0 0 Nucleated RBC % 0 0 Sodium 139 130 L Potassium 4.5 4.4 Chloride 107 102 Carbon Dioxide 23.5 19.6 L Anion Gap 9 8 BUN 23 22 Creatinine 2.1 H 2.2 H Estim Creat Clear Calc 33.3 L 31.8 L eGFR 35 L 33 L BUN/Creatinine Ratio 11 L 10 L Glucose 259 H D 271 H Calculated Osmolality 290 274 L Lactic Acid 3.6 H Calcium 7.9 L 9.8 D Corrected Calcium 8.8 10.8 H D Phosphorus 2.9 Magnesium 2.1 Total Bilirubin 0.4 0.3 AST 12 12 ALT < 7 L 8 L Alkaline Phosphatase 88 79 Troponin I < 0.020 Total Protein 4.8 L 4.4 L Albumin 2.9 L D 2.8 L Globulin 1.9 L 1.6 L Albumin/Globulin Ratio 1.5 1.8 Ur Random Creatinine 41 Ur Random Sodium 38.9 Ur Random Potassium 19 Ur Random Chloride 36.8 L Quality Measures Quality Measures none Assessment & Plan Assessment Current Active Medications: Generic Name Dose Route Start Last Admin Trade Name Freq PRN Reason Stop Dose Admin Acetaminophen 650 mg 12/12/24 02:12 Acetaminophen 325 Mg Tablet PO 01/11/25 02:11 Q6H PRN Fever >99.5 Acetaminophen 1,000 mg 12/12/24 09:02 Acetaminophen 500 Mg Tablet PO 01/11/25 02:11 Q6H PRN PAIN SCALE 1-3 (mild Azithromycin 500 mg 12/12/24 09:00 12/13/24 08:12 Azithromycin 250 Mg Tablet PO 12/15/24 08:59 500 mg QDAY NILAM Administration Carvedilol 6.25 mg 12/12/24 17:30 12/13/24 08:12 Carvedilol 3.125 Mg Tablet PO 01/11/25 17:29 6.25 mg BIDWM NILAM Administration Dextrose 25 ml 12/12/24 02:19 Dextrose 50%-Water Inj 50 Ml Syringe IV 01/11/25 02:18 Q15MIN PRN BG 50-70 responsive npo pt Dextrose 50 ml 12/12/24 02:19 Dextrose 50%-Water Inj 50 Ml Syringe IV 01/11/25 02:18 Q15MIN PRN BG <50 OR BG <70 & pt unresponsive Docusate Sodium 100 mg 12/12/24 09:00 12/13/24 08:13 Docusate Sod 100 Mg Capsule PO 01/11/25 08:59 100 mg QDAY NILAM Administration Protocol Gabapentin 100 mg/ Gabapentin 400 mg 12/13/24 21:00 300 mg PO 01/12/25 20:59 BID NILAM Glucagon 1 mg 12/12/24 02:19 Glucagon Inj 1 Mg Vial IM Q15MIN PRN BG <70, and no IV access Heparin Sodium (Porcine) 5,000 unit 12/13/24 09:00 12/13/24 08:11 Heparin Sod Inj 5000 Unit/Ml Vial SC 12/27/24 08:59 5,000 unit BID NILAM Administration Insulin Glargine 8 unit 12/13/24 07:54 12/13/24 08:10 Insulin Glargine (Lantus) 5 Unit/0.05 Ml (Per 5 Units) SC 01/12/25 07:53 8 unit QDAY NILAM Administration Insulin Human Lispro 0 unit 12/12/24 07:30 12/13/24 11:31 Insulin Lispro (Admelog) 1 Unit/0.01 Ml Unit SC 01/11/25 07:29 3 unit AC [facility] Administration Protocol Iron Sucrose 200 mg 12/13/24 10:00 12/13/24 11:32 Iron Sucrose Cplx Inj 20 Mg/Ml Vial 5 Ml IVP 12/14/24 09:01 200 mg QDAY NILAM Administration Levothyroxine Sodium 25 mcg 12/12/24 06:00 12/13/24 05:25 Levothyroxine Sodium 25 Mcg Tablet PO 01/11/25 05:59 25 mcg ACBR NILAM Administration Nifedipine 60 mg 12/12/24 03:00 12/13/24 08:11 Nifedipine Xl 30 Mg Tabcr PO 01/11/25 02:59 60 mg QDAY NILAM Administration Ondansetron HCl 4 mg 12/12/24 02:12 Ondansetron Inj 2 Mg/Ml Inj 2 Ml IVP 01/11/25 02:11 Q6H PRN NAUSEA OR VOMITING Protocol Pantoprazole Sodium 40 mg 12/13/24 21:00 Pantoprazole 40 Mg Tablet PO 01/12/25 20:59 BID [facility] Pharmacy Consult 1 each 12/12/24 13:17 Pharmacy Renal Dose Adjustment 1 Ea XX 01/11/25 13:16 PRN PRN CONSULT Sennosides 1 tab 12/12/24 09:00 12/13/24 08:13 Senna Tablet PO 01/11/25 08:59 1 tab QDAY [facility] Administration Protocol Plan Mr. Marshall is a 59-year-old male with past medical history of hypertension, diabetes, hypothyroidism, HFpEF presented to the ED due to nausea and vomiting. Patient will be admitted for colitis and hypertensive urgency/emergency. #Hypotension #Hypertensive emergency Endorgan damage acute kidney injury, patient with blurry vision since Monday and associated headaches SBP >200 in the ED, Was given labetalol in the ER -Patient had rapid response on 12/13/24 due to hypotension therefore will hold all antihypertensive medications and continue to closely monitor in telemetry #Gastroenteritis Patient has multiple episodes of nausea with vomiting nonbloody emesis and diarrhea CT shows No evidence of small bowel obstruction, free air or fluid collection. Findings suspicious for rectal fecal impaction. Thickening versus underdistention of the transverse colon and descending colon with pericolonic fat stranding/hyperemia. Possibility of mild colitis cannot be excluded. Findings suspicious for mild gastritis. In the ED patient received 2 L NS, Zosyn, morphine, Zofran ? Azithromycin 500 mg daily X 3 days (12/12/2024? 12/15/24) ? Follow-up cultures ? Gentle IV hydration considering the patient has history of HFpEF although not on medications at this time #Acute Kidney injury on CKD #Lactic acidosis - resolved Likely secondary to dehydration due to vomiting episodes Pt has a history of CKD, per chart reviewing Pt creatinine has been between 2 to 3 and GFR 20-30 ? on gentle IVF's ? Avoid nephrotoxins ? Renally dose medications -Will consult Nephrology, appreciate recommendations #Anemia of CKD #Iron deficiency anemia -Patient denies any history of melena or hematochezia patient states that he has had a colonoscopy approximately 3 to 4 years ago and there were no significant findings. -Hgb 8.2, Hct 23.3 -Patient's anemia is likely due to CKD -Iron panel Iron 20, TIBC 205, iron saturation 9, unsaturated iron binding 185 -we will continue to monitor and will transfuse if hemoglobin drops below 7. #HFpEF [55-60%] Found on chart review, med rec shows patient takes carvedilol and Lasix however when asked states he does not take these medications Not in acute exacerbation at this time #Diabetes mellitus type 2 #Peripheral neuropathy Last A1c: 9.5, December 2023 -glargine 10units daily ? SSI ? Hypoglycemia protocol in place #Hypothyroidism ? Resume levothyroxine 25 mcg as taken at home Health Maintenance: Disposition: MedSurg Fluids: NS Feeding: Clear liquid Thrombo prophylaxis: Lovenox Gastric Ulcer prophylaxis: Pantoprazole CODE STATUS: Full code Assessment and plan discussed with my attending physician Dr. Sherman Mendoza (PGY-1)- Internal medicine resident Attending Provider Attestation/Addendum Face to face evaluation was performed by me. I have personally seen and examined the patient. I discussed the assessment and plan with the entire medicine team. I reviewed available medical records, imaging studies, laboratory results. I agree with the above subjective data, objective findings, assessment and plan except as corrected by me or noted below Acute kidney injury on CKD stage IV Essential hypertension Hypothyroidism Type 2 diabetes Chronic diastolic heart failure, compensated - Continue to hold losartan and nephrology consulted, will follow recommendations furosemide. Patient received beta-elijah agent and became bradycardic requiring atropine administration along with calcium chloride and glucagon -Continue the rest of medications as ordered More than > 30 minutes spent on the encounter
[2024-12-13 17:21] LABS: Reflex Lactate? Y
[2024-12-13 18:10] LABS: Lactic Acid, 3 HR 1.7 mMol/L (0.4-2.0)
[2024-12-13 20:48] LABS: Lactate (Lactic Acid) 1.9 mMol/L (0.4-2.0)
[2024-12-13] MEDS: GABAPENTIN 100 MG, GABAPENTIN 300 MG 400 MG PO (20:48)
[2024-12-14] VITALS (8 sets, daily range): BP systolic 139–167; BP diastolic 73–85; PULSE 60–67; RESP 12–99; TEMP 35.9–36.4; O2SAT 97–100
[2024-12-14] MEDS: LEVOTHYROXINE SODIUM 25 MCG TABLET PO (05:01)
[2024-12-14 06:01] LABS: Basophils % (Auto) 0 % (0-2.5); Eosinophils # (Auto) 0.1 Thou/mm3 (0.0-0.5); Eosinophils % (Auto) 2 % (0-10); Hematocrit 27.2 % (41.0-53.0); Hemoglobin 9.4 g/dL (13.5-16.0); Immature Granulocytes % (Auto) 0 % (0-0); Immature Granulocytes Auto 0.02 Thou/mm3 (0.00-0.00); Lymphocytes # (Auto) 1.3 Thou/mm3 (1.0-4.8); Lymphocytes % (Auto) 21 % (10-50); Mean Corpuscular HGB Conc 34.6 g/dl (31.0-37.0); Mean Corpuscular Hemoglobin 29.3 pg (25.0-35.0); Mean Corpuscular Volume 85 fL (80-100); Monocytes # (Auto) 0.4 Thou/mm3 (0.0-0.8); Monocytes % (Auto) 7 % (0-12); Neutrophils # (Auto) 4.1 Thou/mm3 (1.8-7.7); Neutrophils % (Auto) 69 % (37-80); Nucleated Red Blood Cell % 0 /100 WBC (0); Platelet Count 205 Thou/mm3 (140-440); RDW Standard Deviation 38.2 fL (35.1-43.9); Red Blood Count 3.21 Miln/mm3 (4.50-5.90)
[2024-12-14 06:40] LABS: Alanine Aminotransferase 9 U/L (10-49); Albumin, Serum 3.1 gm/dL (3.4-4.8); Albumin/Globulin Ratio 1.6 (1.2-2.2); Alkaline Phosphatase 95 U/L (46-116); Anion Gap 10 (7-16); Aspartate Amino Transferase 13 U/L (0-34); BUN/Creatinine Ratio 11 Ratio (12-20); Bilirubin,Total 0.4 mg/dL (0.3-1.2); Blood Urea Nitrogen 22 mg/dL (9-23); Calcium 8.7 mg/dL (8.3-10.6); Calcium (Corrected) 9.4 mg/dL (8.5-10.1); Carbon Dioxide 23.2 mMol/L (20.0-31.0); Chloride 103 mMol/L (98-107); Globulin 1.9 gm/dL (2.3-3.5); Glucose 164 mg/dL (74-106); Magnesium 1.9 mg/dL (1.6-2.6); Osmolality,Calculated 279 (275-295); Phosphorous 3.7 mg/dL (2.4-5.1); Potassium 4.6 mMol/L (3.4-5.1); Sodium 136 mMol/L (136-145); eGFR 37 See Note
[2024-12-14] MEDS: AZITHROMYCIN 250 MG TABLET 500 MG PO (08:34)
[2024-12-14] MEDS: SENNA TABLET 1 TAB PO (08:34)
[2024-12-14] MEDS: PANTOPRAZOLE 40 MG TABLET PO ×2 (08:34→20:35)
[2024-12-14] MEDS: GABAPENTIN 100 MG, GABAPENTIN 300 MG 400 MG PO ×2 (08:34→20:34)
[2024-12-14] MEDS: IRON SUCROSE CPLX INJ 20 MG/ML VIAL 5 ML 200 MG IVP (08:35)
[2024-12-14] MEDS: INSULIN GLARGINE (Lantus) 5 UNIT/0.05 ML (PER 5 UNITS) 10 UNIT SC (08:35)
[2024-12-14] MEDS: DOCUSATE SOD 100 MG CAPSULE PO (08:35)
[2024-12-14] MEDS: TAMSULOSIN HCL 0.4 MG CAPSULE PO (09:37)
--- NOTE | 2024-12-14 11:43 | PD.RESPRO ---
Documentation for date of: 12/14/24 Subjective Subjective Interval history: 12/13/2024: Patient examined at bedside today. No acute overnight events. Patient reports improvement in his symptoms including nausea vomiting and diarrhea. BUN/creatinine today is 23 and 2.1 respectively, potassium 4.5, phosphorus 2.9, magnesium 2.1, calcium 8.8, sodium 139, fasting blood sugar 259. White count 4.8, hemoglobin 8.6. Will continue with current management. 12/14/2024: Patient examined at bedside today. No acute overnight events. Patient reports that he is doing well. He is agreeable to going to follow-up with the kidney doctor outpatient. Denies any headache, abdominal pain. His BUN/creatinine today is 22 and 2.0 respectively, potassium 4.6, sodium 136, magnesium 1.9, phosphorus 3.7, calcium 9.4, vital stable. No other complaints at this time Exam Vital Signs Temp Pulse Resp BP Pulse Ox O2 Del Method 96.6 F L 65 16 139/73 H 99 Room Air 12/14/24 08:00 12/14/24 08:00 12/14/24 08:00 12/14/24 08:00 12/14/24 08:00 12/14/24 08:00 Narrative Exam General: AAOx3, NAD, Israeli-speaking male HEENT: Moist mucous membranes, conjunctiva clear, EOMI, PERRLA, Cardiovascular: S1, S2, radial pulses +2 bilat, RRR Pulmonary: CTAB bilat no cough, no wheezing GI: Slight tenderness to palpitation, no guarding, rigidity, rebound tenderness or distension, bowel sounds present Extremities: No presence of trace or pitting edema in lower extremities bilaterally, dorsalis pedis pulses +2 bilaterally Neuro: AAOx3, no focal motor or sensory deficits in the UE or LE bilat Psych: Good judgement, thought and behavior Objective Labs 12/15/24 05:37 12/15/24 05:37 Labs: Laboratory Results - last 24 hr 12/13/24 12/13/24 12/13/24 14:15 17:51 20:19 WBC 5.9 RBC 2.75 L Hgb 8.2 L Hct 23.3 L MCV 85 MCH 29.8 MCHC 35.2 RDW Std Deviation 38.6 Plt Count 193 Neut % (Auto) 58 Lymph % (Auto) 32 [place] % (Auto) 6 Eos % (Auto) 3 Baso % (Auto) 1 Neut # (Auto) 3.4 Lymph # (Auto) 1.9 [place] # (Auto) 0.4 Eos # (Auto) 0.2 Baso # (Auto) 0.0 Immature Gran # (Auto) 0.02 H Absolute Nucleated RBC 0.00 Immature Gran % 0 Nucleated RBC % 0 Sodium 130 L Potassium 4.4 Chloride 102 Carbon Dioxide 19.6 L Anion Gap 8 BUN 22 Creatinine 2.2 H Estim Creat Clear Calc 31.8 L eGFR 33 L BUN/Creatinine Ratio 10 L Glucose 271 H Calculated Osmolality 274 L Lactic Acid 3.6 H 1.7 1.9 Calcium 9.8 D Corrected Calcium 10.8 H D Phosphorus Magnesium Total Bilirubin 0.3 AST 12 ALT 8 L Alkaline Phosphatase 79 Troponin I < 0.020 Total Protein 4.4 L Albumin 2.8 L Globulin 1.6 L Albumin/Globulin Ratio 1.8 12/14/24 04:49 WBC 6.0 RBC 3.21 L Hgb 9.4 L Hct 27.2 L MCV 85 MCH 29.3 MCHC 34.6 RDW Std Deviation 38.2 Plt Count 205 Neut % (Auto) 69 Lymph % (Auto) 21 [place] % (Auto) 7 Eos % (Auto) 2 Baso % (Auto) 0 Neut # (Auto) 4.1 Lymph # (Auto) 1.3 [place] # (Auto) 0.4 Eos # (Auto) 0.1 Baso # (Auto) 0.0 Immature Gran # (Auto) 0.02 H Absolute Nucleated RBC 0.00 Immature Gran % 0 Nucleated RBC % 0 Sodium 136 Potassium 4.6 Chloride 103 Carbon Dioxide 23.2 Anion Gap 10 BUN 22 Creatinine 2.0 H Estim Creat Clear Calc 35.0 L eGFR 37 L BUN/Creatinine Ratio 11 L Glucose 164 H D Calculated Osmolality 279 Lactic Acid Calcium 8.7 Corrected Calcium 9.4 Phosphorus 3.7 Magnesium 1.9 Total Bilirubin 0.4 AST 13 ALT 9 L Alkaline Phosphatase 95 D Troponin I Total Protein 5.0 L Albumin 3.1 L Globulin 1.9 L Albumin/Globulin Ratio 1.6 Quality Measures Quality Measures none Assessment & Plan Assessment Current Active Medications: Generic Name Dose Route Start Last Admin Trade Name Freq PRN Reason Stop Dose Admin Acetaminophen 650 mg 12/12/24 02:12 Acetaminophen 325 Mg Tablet PO 01/11/25 02:11 Q6H PRN Fever >99.5 Acetaminophen 1,000 mg 12/12/24 09:02 Acetaminophen 500 Mg Tablet PO 01/11/25 02:11 Q6H PRN PAIN SCALE 1-3 (mild Azithromycin 500 mg 12/12/24 09:00 12/14/24 08:34 Azithromycin 250 Mg Tablet PO 12/15/24 08:59 500 mg QDAY NILAM Administration Carvedilol 6.25 mg 12/12/24 17:30 12/13/24 08:12 Carvedilol 3.125 Mg Tablet PO 01/11/25 17:29 6.25 mg BIDWM NILAM Administration Dextrose 25 ml 12/12/24 02:19 Dextrose 50%-Water Inj 50 Ml Syringe IV 01/11/25 02:18 Q15MIN PRN BG 50-70 responsive npo pt Dextrose 50 ml 12/12/24 02:19 Dextrose 50%-Water Inj 50 Ml Syringe IV 01/11/25 02:18 Q15MIN PRN BG <50 OR BG <70 & pt unresponsive Docusate Sodium 100 mg 12/12/24 09:00 12/14/24 08:35 Docusate Sod 100 Mg Capsule PO 01/11/25 08:59 100 mg QDAY NILAM Administration Protocol Gabapentin 100 mg/ Gabapentin 400 mg 12/13/24 21:00 12/14/24 08:34 300 mg PO 01/12/25 20:59 400 mg BID NILAM Administration Glucagon 1 mg 12/12/24 02:19 Glucagon Inj 1 Mg Vial IM Q15MIN PRN BG <70, and no IV access Heparin Sodium (Porcine) 5,000 unit 12/13/24 09:00 12/13/24 08:11 Heparin Sod Inj 5000 Unit/Ml Vial SC 12/27/24 08:59 5,000 unit BID NILAM Administration Insulin Glargine 10 unit 12/14/24 09:00 12/14/24 08:35 Insulin Glargine (Lantus) 5 Unit/0.05 Ml (Per 5 Units) SC 01/13/25 08:59 10 unit QDAY NILAM Administration Insulin Human Lispro 0 unit 12/12/24 07:30 12/14/24 07:37 Insulin Lispro (Admelog) 1 Unit/0.01 Ml Unit SC 01/11/25 07:29 Not Given AC NILAM Protocol Levothyroxine Sodium 25 mcg 12/12/24 06:00 12/14/24 05:01 Levothyroxine Sodium 25 Mcg Tablet PO 01/11/25 05:59 25 mcg ACBR NILAM Administration Nifedipine 60 mg 12/12/24 03:00 12/13/24 08:11 Nifedipine Xl 30 Mg Tabcr PO 01/11/25 02:59 60 mg QDAY NILAM Administration Ondansetron HCl 4 mg 12/12/24 02:12 Ondansetron Inj 2 Mg/Ml Inj 2 Ml IVP 01/11/25 02:11 Q6H PRN NAUSEA OR VOMITING Protocol Pantoprazole Sodium 40 mg 12/13/24 21:00 12/14/24 08:34 Pantoprazole 40 Mg Tablet PO 01/12/25 20:59 40 mg BID NILAM Administration Pharmacy Consult 1 each 12/12/24 13:17 Pharmacy Renal Dose Adjustment 1 Ea XX 01/11/25 13:16 PRN PRN CONSULT Sennosides 1 tab 12/12/24 09:00 12/14/24 08:34 Senna Tablet PO 01/11/25 08:59 1 tab QDAY NILAM Administration Protocol Tamsulosin HCl 0.4 mg 12/14/24 09:30 12/14/24 09:37 Tamsulosin Hcl 0.4 Mg Capsule PO 01/13/25 09:29 0.4 mg QDAY NILAM Administration Plan Assessment 59-year-old male with past medical history of hypertension, diabetes, hypothyroidism, HFpEF presented to the ED due to nausea and vomiting. Patient will be admitted for colitis and hypertensive urgency/emergency. #Acute Kidney injury on CKD, improving #Lactic acidosis, resolved DDx: Prerenal versus ATN versus obstructive History of stones, BPH: Yes to both per patient No Singh at this time Likely hypovolemia, related to GI losses Creatinine today is 2.2, BUN 30 Imaging showed nonobstructing tiny renal calculi, however they are nonobstructing or exhibit hydronephrosis Unsure what stage CKD pt has, need to determine baseline, however pt has had ANGELA on CKD before in the past Etiology of CKD could be attributed to long-standing uncontrolled diabetes (A1c 10.5) FeNa: 1.5% (Indeterminate) Cr 2.0 today, may be new baseline UOP today -1.7 L Patient will need close follow up for CKD outpatient Renal ultrasound shows: Moderate bilateral renal parenchymal scarring Left kidney shows cortical thinning Plan: ? Avoid nephrotoxins ? Renally dose medications ? Strict JOSE's ? Trend CMP #Colitis #Vomiting #Diarrhea Has had ongoing symptoms since 2019 Patient has had colonoscopy and EGD done before Unlikely to be an acute infection He needs further workup for IBS, IBD, microscopic colitis Patient may also benefit from C. difficile testing and other stool testing as patient recently used antibiotics Patient using azithromycin for colitis, could consider budesonide at this point Plan: ? Consider C. difficile testing ? Consider GI consult ? Consider stool cultures, WBCs, calprotectin ? Consider budesonide ? Antiemetics #Hypertensive emergency #HFpEF [55-60%] #Diabetes mellitus type 2 #Peripheral neuropathy #Hypothyroidism Above handled by primary hospitalist team Patient seen and care discussed with my attending physician, Dr. Arleen Payton, PGY-1 Attending Provider Attestation/Addendum Patient seen and examined with resident physician Dr. Tate. Note reviewed, agree with findings and recommendations. Patient currently seen in telemetry-transferred for bradycardia. Comfortable. Creatinine slowly improving.
[2024-12-14] MEDS: INSULIN LISPRO (AdmeLOG) 1 UNIT/0.01 ML UNIT SC (11:58)
--- NOTE | 2024-12-14 13:42 | ESPR_ITS ---
Documentation for date of: 12/14/24 Subjective Subjective Interval history: Overnight patient had some urinary retention and bladder scan showed 800 cc. Patient was able to void 400 cc. Q4 bladder scans were initiated.?Patient seen and examined at bedside this AM. Patient reports feeling much better. He denies any diarrhea. He denies any current abdominal tenderness. He denies any nausea or vomiting and tolerated clear liquids well. Repeat abdomen/pelvis CT without contrast showed abnormal small bowel, fluid distended and significant wall thickening, less suspicion for ischemic small bowel as patient's symptoms resolved and hypotension did not recur, lactic acid normalized. Labs and vitals were reviewed.?Lactic acid downtrended yesterday afternoon to 1.7 after patient completed 2L bolus. CBC is stable, no elevation of WBC. Creatinine slowly improved to 2.0, GFR 37. No further complaints at this time. Will advance diet today and continue to monitor through today, plan for discharge tomorrow. Review of systems otherwise negative except what is mentioned above. Exam Vital Signs Temp Pulse Resp BP Pulse Ox O2 Del Method 97.5 F 63 16 167/85 H 99 Room Air 12/14/24 12:00 12/14/24 12:00 12/14/24 12:00 12/14/24 12:00 12/14/24 12:00 12/14/24 12:00 Narrative Exam GENERAL: A&Ox3. Tunisian speaking, cooperative, Awake, Not in acute distress NEURO: No focal neurological deficits HEENT: Atraumatic, normocephalic. Mucous membranes moist. Eyes open, symmetrical, & clear HEART: Normal Heart Sounds LUNGS: Clear to auscultation with no wheezing or crackles. ABDOMEN: Soft, non-distended, non-tender, bowel sounds heard, no guarding or rebound tenderness SKIN: No Rash or ecchymoses EXTREMITIES: No edema, tenderness, able to move all 4 extremities, pedal pulses palpated Objective Labs 12/16/24 05:25 12/16/24 05:25 Labs: Laboratory Results - last 24 hr 12/13/24 12/13/24 12/13/24 14:15 17:51 20:19 WBC 5.9 RBC 2.75 L Hgb 8.2 L Hct 23.3 L MCV 85 MCH 29.8 MCHC 35.2 RDW Std Deviation 38.6 Plt Count 193 Neut % (Auto) 58 Lymph % (Auto) 32 [place] % (Auto) 6 Eos % (Auto) 3 Baso % (Auto) 1 Neut # (Auto) 3.4 Lymph # (Auto) 1.9 [place] # (Auto) 0.4 Eos # (Auto) 0.2 Baso # (Auto) 0.0 Immature Gran # (Auto) 0.02 H Absolute Nucleated RBC 0.00 Immature Gran % 0 Nucleated RBC % 0 Sodium 130 L Potassium 4.4 Chloride 102 Carbon Dioxide 19.6 L Anion Gap 8 BUN 22 Creatinine 2.2 H Estim Creat Clear Calc 31.8 L eGFR 33 L BUN/Creatinine Ratio 10 L Glucose 271 H Calculated Osmolality 274 L Lactic Acid 3.6 H 1.7 1.9 Calcium 9.8 D Corrected Calcium 10.8 H D Phosphorus Magnesium Total Bilirubin 0.3 AST 12 ALT 8 L Alkaline Phosphatase 79 Troponin I < 0.020 Total Protein 4.4 L Albumin 2.8 L Globulin 1.6 L Albumin/Globulin Ratio 1.8 12/14/24 04:49 WBC 6.0 RBC 3.21 L Hgb 9.4 L Hct 27.2 L MCV 85 MCH 29.3 MCHC 34.6 RDW Std Deviation 38.2 Plt Count 205 Neut % (Auto) 69 Lymph % (Auto) 21 [place] % (Auto) 7 Eos % (Auto) 2 Baso % (Auto) 0 Neut # (Auto) 4.1 Lymph # (Auto) 1.3 [place] # (Auto) 0.4 Eos # (Auto) 0.1 Baso # (Auto) 0.0 Immature Gran # (Auto) 0.02 H Absolute Nucleated RBC 0.00 Immature Gran % 0 Nucleated RBC % 0 Sodium 136 Potassium 4.6 Chloride 103 Carbon Dioxide 23.2 Anion Gap 10 BUN 22 Creatinine 2.0 H Estim Creat Clear Calc 35.0 L eGFR 37 L BUN/Creatinine Ratio 11 L Glucose 164 H D Calculated Osmolality 279 Lactic Acid Calcium 8.7 Corrected Calcium 9.4 Phosphorus 3.7 Magnesium 1.9 Total Bilirubin 0.4 AST 13 ALT 9 L Alkaline Phosphatase 95 D Troponin I Total Protein 5.0 L Albumin 3.1 L Globulin 1.9 L Albumin/Globulin Ratio 1.6 Quality Measures Quality Measures none Assessment & Plan Assessment Current Active Medications: Generic Name Dose Route Start Last Admin Trade Name Freq PRN Reason Stop Dose Admin Acetaminophen 650 mg 12/12/24 02:12 Acetaminophen 325 Mg Tablet PO 01/11/25 02:11 Q6H PRN Fever >99.5 Acetaminophen 1,000 mg 12/12/24 09:02 Acetaminophen 500 Mg Tablet PO 01/11/25 02:11 Q6H PRN PAIN SCALE 1-3 (mild Azithromycin 500 mg 12/12/24 09:00 12/14/24 08:34 Azithromycin 250 Mg Tablet PO 12/15/24 08:59 500 mg QDAY NILAM Administration Carvedilol 6.25 mg 12/12/24 17:30 12/13/24 08:12 Carvedilol 3.125 Mg Tablet PO 01/11/25 17:29 6.25 mg BIDWM NILAM Administration Dextrose 25 ml 12/12/24 02:19 Dextrose 50%-Water Inj 50 Ml Syringe IV 01/11/25 02:18 Q15MIN PRN BG 50-70 responsive npo pt Dextrose 50 ml 12/12/24 02:19 Dextrose 50%-Water Inj 50 Ml Syringe IV 01/11/25 02:18 Q15MIN PRN BG <50 OR BG <70 & pt unresponsive Docusate Sodium 100 mg 12/12/24 09:00 12/14/24 08:35 Docusate Sod 100 Mg Capsule PO 01/11/25 08:59 100 mg QDAY NILAM Administration Protocol Gabapentin 100 mg/ Gabapentin 400 mg 12/13/24 21:00 12/14/24 08:34 300 mg PO 01/12/25 20:59 400 mg BID NILAM Administration Glucagon 1 mg 12/12/24 02:19 Glucagon Inj 1 Mg Vial IM Q15MIN PRN BG <70, and no IV access Heparin Sodium (Porcine) 5,000 unit 12/13/24 09:00 12/13/24 08:11 Heparin Sod Inj 5000 Unit/Ml Vial SC 12/27/24 08:59 5,000 unit BID NILAM Administration Insulin Glargine 10 unit 12/14/24 09:00 12/14/24 08:35 Insulin Glargine (Lantus) 5 Unit/0.05 Ml (Per 5 Units) SC 01/13/25 08:59 10 unit QDAY NILAM Administration Insulin Human Lispro 0 unit 12/12/24 07:30 12/14/24 11:58 Insulin Lispro (Admelog) 1 Unit/0.01 Ml Unit SC 01/11/25 07:29 3 unit AC NILAM Administration Protocol Levothyroxine Sodium 25 mcg 12/12/24 06:00 12/14/24 05:01 Levothyroxine Sodium 25 Mcg Tablet PO 01/11/25 05:59 25 mcg ACBR NILAM Administration Nifedipine 60 mg 12/12/24 03:00 12/13/24 08:11 Nifedipine Xl 30 Mg Tabcr PO 01/11/25 02:59 60 mg QDAY NILAM Administration Ondansetron HCl 4 mg 12/12/24 02:12 Ondansetron Inj 2 Mg/Ml Inj 2 Ml IVP 01/11/25 02:11 Q6H PRN NAUSEA OR VOMITING Protocol Pantoprazole Sodium 40 mg 12/13/24 21:00 12/14/24 08:34 Pantoprazole 40 Mg Tablet PO 01/12/25 20:59 40 mg BID NILAM Administration Pharmacy Consult 1 each 12/12/24 13:17 Pharmacy Renal Dose Adjustment 1 Ea XX 01/11/25 13:16 PRN PRN CONSULT Sennosides 1 tab 12/12/24 09:00 12/14/24 08:34 Senna Tablet PO 01/11/25 08:59 1 tab QDAY NILAM Administration Protocol Tamsulosin HCl 0.4 mg 12/14/24 09:30 12/14/24 09:37 Tamsulosin Hcl 0.4 Mg Capsule PO 01/13/25 09:29 0.4 mg QDAY NILAM Administration Plan Mr. Marshall is a 59-year-old male with past medical history of hypertension, diabetes, and hypothyroidism presented to the ED due to nausea and vomiting. Patient was initially admitted for colitis and hypertensive urgency/emergency. #Gastroenteritis/enterocolitis Patient has multiple episodes of nausea with vomiting nonbloody emesis and diarrhea CT abdomen/pelvis on admission showed No evidence of small bowel obstruction, free air or fluid collection. Findings suspicious for rectal fecal impaction. Thickening versus underdistention of the transverse colon and descending colon with pericolonic fat stranding/hyperemia. Possibility of mild colitis cannot be excluded. Findings suspicious for mild gastritis. 12/13/2024 Repeat abdomen/pelvis CT without contrast ordered after hypotensive rapid response to rule out acute abdominal pathology showed abnormal small bowel, fluid distended and significant wall thickening. There is however less suspicion for ischemic small bowel as patient's symptoms resolved and hypotension did not recur, lactic acid normalized. In the setting of ANGELA on CKD and patient not in sepsis decided that follow up CT with contrast was not warranted at this time. - Azithromycin 500 mg daily X 3 days (12/12/2024? 12/15/24) - Follow-up cultures - Advance diet to regular for dinner and assess symptoms #Acute kidney injury on CKD Likely secondary to dehydration due to vomiting episodes. Pt has a history of CKD, per chart reviewing patient creatinine has been between 2 to 3 and GFR 20-30. 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 Patient was given 1 mg glucagon, calcium chloride, and 1 mg atropine with good response. - Holding antihypertensives for now - Oral hydration #Hypertensive emergency - resolved Endorgan damage acute kidney injury, patient with blurry vision since Monday and associated headaches SBP >200 in the ED, was given labetalol in the ER. - Holding antihypertensives for now #Anemia of CKD #Iron deficiency anemia Patient denies any history of melena or hematochezia patient states that he has had a colonoscopy approximately 3 to 4 years ago and there were no significant findings. Hemoglobin is stable at this time. Patient's anemia is likely due to CKD. Iron panel iron 20, TIBC 205, iron saturation 9, unsaturated iron binding 185. -We will continue to monitor and will transfuse if hemoglobin drops below 7 #HFpEF [55-60%] Found on chart review, med rec shows patient takes carvedilol and Lasix however when asked states he does not take these medications. Not in acute exacerbation at this time. Last echo on file 2023 shows normal EF 55-60%, small pericardial effusion located anteriorly. No evidence of cardiac tamponade. #Diabetes mellitus type 2 #Peripheral neuropathy Last A1c: 9.5, December 2023 - Insulin glargine 8 units daily ? SSI ? Hypoglycemia protocol in place #Hypothyroidism ? Continue levothyroxine 25 mcg as taken at home Health Maintenance: Disposition: Tele Fluids: NS Feeding: Regular Thrombo prophylaxis: Lovenox Gastric Ulcer prophylaxis: Pantoprazole CODE STATUS: Full code Patient plan of care was discussed with the attending physician, Dr. Whitaker. Natacha Landry, PGY-2 Attending Provider Attestation/Addendum Face to face evaluation was performed by me. I have personally seen and examined the patient. I discussed the assessment and plan with the entire medicine team. I reviewed available medical records, imaging studies, laboratory results. I agree with the above subjective data, objective findings, assessment and plan except as corrected by me or noted below Acute kidney injury on CKD stage IV Congestive heart failure diastolic left ventricular compensated Essential hypertension Type 2 diabetes requiring chronic insulin therapy with diabetic nephropathy as well as peripheral neuropathy Symptomatic bradycardia - continue to adjust antihypertensive regimen - Patient is becoming hypertensive now. Avoid nephrotoxic agents. Nephrology was consulted appreciate help. Renally dose medications More than > 30 minutes spent on the encounter
--- NOTE | 2024-12-14 16:39 | PC.DIETICIAN ---
Nutrition Education (A1C=10.5): Patient was educated on dietary management of diabetes; written material was provided for future reference. *Consider prescribing a [employer] Huey 3 Plus sensor + [place] prior to discharge.
[2024-12-14] MEDS: HEPARIN SOD INJ 5000 UNIT/ML VIAL SC (20:35)
[2024-12-15] VITALS (20 sets, daily range): BP systolic 112–191; BP diastolic 59–97; PULSE 59–82; RESP 12–99; TEMP 36.1–36.7; O2SAT 98–100
--- NOTE | 2024-12-15 04:30 | PC.NURSE ---
MD ramirez notified of pt's BP 191/85 and HR 69. Patient is not complaining of pain. He said he will put in an order
[2024-12-15] MEDS: hydrALAZINE INJ 20 MG/ML VIAL 10 MG IVP ×2 (04:36→12:26)
--- NOTE | 2024-12-15 05:06 | PC.NURSE ---
MD Wesley notified of recheck of BP. BP is now 170/85. He said recheck in 25 minutes
[2024-12-15] MEDS: LEVOTHYROXINE SODIUM 25 MCG TABLET PO (05:48)
[2024-12-15] MEDS: NIFEdipine XL 30 MG TABCR 60 MG PO (06:04)
[2024-12-15 06:06] LABS: Basophils % (Auto) 0 % (0-2.5); Eosinophils # (Auto) 0.1 Thou/mm3 (0.0-0.5); Eosinophils % (Auto) 3 % (0-10); Hematocrit 25.4 % (41.0-53.0); Immature Granulocytes % (Auto) 0 % (0-0); Immature Granulocytes Auto 0.01 Thou/mm3 (0.00-0.00); Lymphocytes # (Auto) 0.9 Thou/mm3 (1.0-4.8); Lymphocytes % (Auto) 21 % (10-50); Mean Corpuscular HGB Conc 35.4 g/dl (31.0-37.0); Mean Corpuscular Hemoglobin 29.5 pg (25.0-35.0); Mean Corpuscular Volume 83 fL (80-100); Monocytes # (Auto) 0.4 Thou/mm3 (0.0-0.8); Monocytes % (Auto) 8 % (0-12); Neutrophils # (Auto) 3.1 Thou/mm3 (1.8-7.7); Neutrophils % (Auto) 68 % (37-80); Nucleated Red Blood Cell % 0 /100 WBC (0); Platelet Count 210 Thou/mm3 (140-440); RDW Standard Deviation 38.3 fL (35.1-43.9); Red Blood Count 3.05 Miln/mm3 (4.50-5.90); White Blood Count 4.5 Thou/mm3 (3.8-10.6)
[2024-12-15 06:21] LABS: Anion Gap 9 (7-16); BUN/Creatinine Ratio 10 Ratio (12-20); Blood Urea Nitrogen 18 mg/dL (9-23); Calcium 8.6 mg/dL (8.3-10.6); Carbon Dioxide 24.1 mMol/L (20.0-31.0); Chloride 105 mMol/L (98-107); Creatinine (Component) 1.8 mg/dL (0.6-1.3); Estimated Creatinine Clearance 38.9 mL/min (>60); Glucose 90 mg/dL (74-106); Magnesium 1.8 mg/dL (1.6-2.6); Osmolality,Calculated 277 (275-295); Phosphorous 3.9 mg/dL (2.4-5.1); Potassium 4.3 mMol/L (3.4-5.1); Sodium 138 mMol/L (136-145); eGFR 42 See Note
[2024-12-15] MEDS: DOCUSATE SOD 100 MG CAPSULE PO (08:28)
[2024-12-15] MEDS: TAMSULOSIN HCL 0.4 MG CAPSULE PO ×2 (08:28→21:47)
[2024-12-15] MEDS: INSULIN GLARGINE (Lantus) 5 UNIT/0.05 ML (PER 5 UNITS) 10 UNIT SC (08:28)
[2024-12-15] MEDS: PANTOPRAZOLE 40 MG TABLET PO ×2 (08:28→21:48)
[2024-12-15] MEDS: GABAPENTIN 100 MG, GABAPENTIN 300 MG 400 MG PO ×2 (08:28→21:47)
[2024-12-15] MEDS: HEPARIN SOD INJ 5000 UNIT/ML VIAL SC ×2 (08:29→21:48)
[2024-12-15] MEDS: hydrALAZINE HCL 25 MG TABLET PO (09:54)
--- NOTE | 2024-12-15 10:16 | PD.RESDS ---
Planned Discharge Date 12/15/24 DS: Providers Provider Date of admission: 12/12/24 02:13 Primary care physician: Blake Gomez PA-C Admitting Provider: Yasmany Levy MD Attending Provider on Admission: Yasmany Levy MD Consults: 12/12/24 04:46 Health [facility]ity Referral - Knowledge Deficit Routine Comment: Positive screening for knowledge deficit needs. Health [facility]ity Referral - Nutrition Routine Comment: Positive screening for nutrition needs. Health Equity Referral - Transportation Routine Comment: Positive screening for transportation needs. 12/12/24 11:00 Consult to Nephrology Routine Comment: Consulting Provider: Marianne Bacon 12/14/24 09:29 Referral Physical Therapy Routine Comment: Physician Instructions: Attending Provider on DC: Adair Mendoza MD Discharging Provider: Adair Mendoza MD Hospital Course Hospital Course Hospital course: Overnight patient had some urinary retention and bladder scan showed 800 cc. Patient was able to void 400 cc. Q4 bladder scans were initiated.?Patient seen and examined at bedside this AM. Patient reports feeling much better. He denies any diarrhea. He denies any current abdominal tenderness. He denies any nausea or vomiting and tolerated clear liquids well. Repeat abdomen/pelvis CT without contrast showed abnormal small bowel, fluid distended and significant wall thickening, less suspicion for ischemic small bowel as patient's symptoms resolved and hypotension did not recur, lactic acid normalized. Labs and vitals were reviewed.?Lactic acid downtrended yesterday afternoon to 1.7 after patient completed 2L bolus. CBC is stable, no elevation of WBC. Creatinine slowly improved to 2.0, GFR 37. No further complaints at this time. Will advance diet today and continue to monitor through today, plan for discharge tomorrow. Review of systems otherwise negative except what is mentioned above. Time Spent with Patient Time attestation: Total time spent providing and/or coordinating discharge services: Exam Vital Signs Temp Pulse Resp BP Pulse Ox O2 Del Method 97.4 F 76 18 174/79 H 99 Room Air 12/15/24 04:00 12/15/24 09:54 12/15/24 04:00 12/15/24 09:54 12/15/24 04:00 12/15/24 04:00 Discharge Plan Plan Patient Disposition: HOME (Self Care) Patient condition on transfer: Stable Care Plan Goals: -Follow up with PCP within 1 week of discharge -We have made some changes to your diabetic and high blood pressure medications due to your kidney disease. please take the new medications as directed, keep a journal of your daily blood glucose and blood pressure readings to review with your primary care -Please repeat BMP with in 1 week after discharge -Please follow up with company laborer (kidney doctor) Dr. Bacon within 1 week after discharge -Continue rest of medications as previously prescribed -Return to the ED or call EMS if symptoms return and/or worsen Prescriptions/Referrals Prescriptions/Med Rec: New (DME) [employer] Huey 3 Plus Sensor Device See Rx Instructions .Route Qty: 2 3RF Rx Instructions: As directed (DME) FreeStyle Huey 3 [place] Misc See Rx Instructions .Route Qty: 1 0RF Rx Instructions: As directed gabapentin 400 mg Capsule 400 mg PO BID 30 Days Qty: 60 1RF hydralazine 25 mg Tablet 25 mg PO TID 30 Days Qty: 90 0RF nifedipine 30 mg Tablet Extended Release 24hr 60 mg PO QDAY 30 Days Qty: 60 0RF tamsulosin 0.4 mg Capsule 0.4 mg PO BID 30 Days Qty: 60 0RF pantoprazole 40 mg Tablet,Delayed Release (Dr/Ec) 40 mg PO BID 30 Days Qty: 60 0RF Jardiance 10 mg tablet 10 mg PO QAM Qty: 30 3RF Januvia 50 mg tablet 50 mg PO QDAY Qty: 30 3RF Continued pravastatin 40 mg Tablet 40 mg PO QDAY levothyroxine 25 mcg capsule 25 mcg PO ACBR Qty: 30 2RF Rx Instructions: Take 1 capsule (25mcg) every morning, 2 hours before any food or other medications (DME) pen needle, diabetic 29 gauge x 1/2 needle See Rx Instructions .Route Qty: 100 0RF Rx Instructions: As directed (DME) lancets [Accu-Chek Softclix Lancets] Misc See Rx Instructions .Route Qty: 100 0RF Rx Instructions: As directed Changed furosemide [Lasix] 40 mg tablet 40 mg PO PRN PRN (Reason: edema) 30 Days Qty: 30 0RF Rx Instructions: take as needed for leg swelling or shortness of breath and weight gain more than 2 pounds in 1 day insulin glargine 100 unit/mL (3 mL) insulin pen 30 unit subcut .daily 30 Days Qty: 0 0RF Patient Comments: At night Discontinued tamsulosin 0.4 mg Capsule 0.4 mg PO QDAY aspirin 81 mg tablet,delayed release (DR/EC) 81 mg PO QDAY carvedilol 6.25 mg tablet 6.25 mg PO BID metformin 500 mg tablet extended release 24 hr 500 mg PO QDAY Qty: 30 0RF Jardiance 25 mg tablet 25 mg PO QDAY Qty: 30 0RF losartan 25 mg tablet 25 mg PO BID Patient Comments: TOME 1 TABLETA POR V A ORAL DOS VECES AL D A amoxicillin-pot clavulanate 875-125 mg tablet 1 tab PO Q12H Patient Comments: TOME 1 TABLETA POR V A ORAL CADA 12 HORAS POR 10 D gabapentin 600 mg tablet 600 mg PO Q12H Patient Comments: TOME 1 TABLETA POR V A ORAL DOS VECES AL D A Referrals: Blake Gomez PA-C [Primary Care Provider] - Marianne Bacon MD [Physician] - Patient/Caregiver Discharge Instructions Print Language: Lithuanian Stand Alone Forms: Kelsey Award Info., Patient Portal Info Letter Discharge Order Discharge Orders: Discharge (Routine); Ordered 12/15/24 Ordered By: Adair Mendoza
--- NOTE | 2024-12-15 11:44 | PD.NEPHPROG ---
Documentation for date of: 12/15/24 Subjective Subjective Interval history: Vahe is a 59-year-old male with past medical history of hypertension, diabetes, hypothyroidism, HFpEF, peripheral neuropathy, BPH, gastritis, and CAD who presented to [facility] on December 11, 2024 for an evaluation of nausea and nonbloody vomiting and nonbloody episodes of diarrhea (10 times). Patient reports that he has been having ongoing symptoms like this since 2019 in which she had his cholecystectomy for cholelithiasis. Patient reports that he was having diarrhea so much that she could not get off the toilet, and also was having about 3 episodes of vomiting. He is unsure if food or even certain foods trigger his symptoms. He has been experiencing diarrhea off and on for some time now. 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 He also notes a recent ear infection in which she took amoxicillin for and that was about a month ago. He says that his symptoms with his nausea, vomiting and diarrhea impede him from going out the house and traveling. He denies any chest pain, shortness of breath or abdominal pain, however he denies any recent travel or anyone around him having similar symptoms. She denies any changes to his dietary habits. Says that he routinely goes to his primary care doctor and gets labs done frequently, however he still does not know fully why he is having all the symptoms. ED course: ED vitals: BP 188/62, HR 68, O2 sat 100% on room air ED labs: Leukocytosis, normocytic anemia, hypokalemia, BUN 36, creatinine 2.7, glucose 190, lactic acid 5.4 later downtrending to 3.4 after 2 L of IV fluids, BNP 120, UA shows 4+ glucose, 2+ protein CT abdomen pelvis done showed No evidence of small bowel obstruction, free air or fluid collection. Findings suspicious for rectal fecal impaction. Thickening versus underdistention of the transverse colon and descending colon with pericolonic fat stranding/hyperemia. Possibility of mild colitis cannot be excluded. Findings suspicious for mild gastritis. In the ED patient received 2 L NS, Zosyn, morphine, Zofran. Medicine was consulted and patient was admitted to the floors 12/13/2024: Patient examined at bedside today. No acute overnight events. Patient reports improvement in his symptoms including nausea vomiting and diarrhea. BUN/creatinine today is 23 and 2.1 respectively, potassium 4.5, phosphorus 2.9, magnesium 2.1, calcium 8.8, sodium 139, fasting blood sugar 259. White count 4.8, hemoglobin 8.6. Will continue with current management. 12/15/2024 patient currently seen in telemetry. at bedside. Denies any chest pain. Blood pressure 174/79, heart rate 76. Hemoglobin 9. Sodium 138, potassium 4.3, BUN 18, creatinine 1.8, GFR 42. Calcium 3.9, magnesium 1.8. Patient is going to be discharged today. Follow-up with me in 1 to 2 weeks. Review of Systems Review of Systems Narrative Review of Systems: CONSTITUTIONAL: Patient denies any fever, chills. HEENT: Denies any visual disturbances or hearing problems. CARDIOVASCULAR: Patient denies any chest pain, shortness of breath, swelling in the lower extremities. PULMONARY: Patient denies any shortness of breath, cough. GASTROINTESTINAL: Patient denies any abdominal pain, constipation, nausea, vomiting, diarrhea. GENITOURINARY: Patient denies any urinary symptoms of burning or frequency or hematuria, denies any form in the urine. SKIN: Denies any rash. MUSCULOSKELETAL: Denies any muscular skeletal problems of joint pains. NEUROLOGICAL: Denies any neurological problems of strokes, seizures or confusion. Denies any memory problems. PSYCHIATRIC: Denies any depression or anxiety. LYMPHATICS : No lymphadenopathy Exam Vital Signs Temp Pulse Resp BP Pulse Ox O2 Del Method 36.1 C 76 14 174/79 H 100 Room Air 12/15/24 08:00 12/15/24 09:54 12/15/24 08:00 12/15/24 09:54 12/15/24 08:00 12/15/24 08:00 Narrative Exam GENERAL APPEARANCE: Patient seems to be comfortable, adequately hydrated and nourished. HEENT: EOMI, PERRLA NECK: Neck supple, no JVD or bruit CARDIOVASCULAR: Heart regular, no murmurs LUNGS/CHEST: Chest clear to auscultation. No rales, rhonchi, wheezing ABDOMEN: Soft, nontender, nondistended. No masses. Normal bowel sounds. EXTREMITIES: No edema, clubbing or cyanosis. SKIN: Skin exam normal without any rashes MUSCULOSKELETAL: Musculoskeletal exam normal PSYCHIATRIC: Normal mood, affect LYMPHATICS: No lymphadenopathy noted NEUROLOGICAL : No neurological deficits Objective Labs 12/15/24 05:37 12/15/24 05:37 Labs: Laboratory Results - last 24 hr 12/15/24 05:37 WBC 4.5 RBC 3.05 L Hgb 9.0 L Hct 25.4 L MCV 83 MCH 29.5 MCHC 35.4 RDW Std Deviation 38.3 Plt Count 210 Neut % (Auto) 68 Lymph % (Auto) 21 [place] % (Auto) 8 Eos % (Auto) 3 Baso % (Auto) 0 Neut # (Auto) 3.1 Lymph # (Auto) 0.9 L [place] # (Auto) 0.4 Eos # (Auto) 0.1 Baso # (Auto) 0.0 Immature Gran # (Auto) 0.01 H Absolute Nucleated RBC 0.00 Immature Gran % 0 Nucleated RBC % 0 Sodium 138 Potassium 4.3 Chloride 105 Carbon Dioxide 24.1 Anion Gap 9 BUN 18 Creatinine 1.8 H Estim Creat Clear Calc 38.9 L eGFR 42 L BUN/Creatinine Ratio 10 L Glucose 90 D Calculated Osmolality 277 Calcium 8.6 Phosphorus 3.9 Magnesium 1.8 Assessment & Plan Additional Assessment & Plan Additional Plan: 59-year-old male with past medical history of hypertension, diabetes, hypothyroidism, HFpEF presented to the ED due to nausea and vomiting. Patient will be admitted for colitis and hypertensive urgency/emergency. #Acute Kidney injury on CKD, improving #Lactic acidosis, resolved Creatinine seems to be improving. 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 Renal ultrasound shows: Moderate bilateral renal parenchymal scarring Left kidney shows cortical thinning Plan: ? Avoid nephrotoxins ? Renally dose medications ? Strict JOSE's ? Trend CMP #Colitis #Vomiting #Diarrhea Much better #Hypertensive-blood pressures are improving. #HFpEF [55-60%] #Diabetes mellitus type 2 #Peripheral neuropathy #Hypothyroidism Above handled by primary hospitalist team
--- NOTE | 2024-12-15 11:55 | PC.NURSE ---
Notified Dr. Landry, Pt blood pressure 191/82, HR 75, hold discharge.
[2024-12-15] MEDS: INSULIN LISPRO (AdmeLOG) 1 UNIT/0.01 ML UNIT SC (12:03)
--- NOTE | 2024-12-15 13:36 | PD.RESPRO ---
Documentation for date of: 12/15/24 Subjective Subjective Interval history: Overnight team reported Pt sytolic BP was 190's, therefore patient was given IV hydralazine. Patient is seen and examined at bedside this morning he is comfortably sitting and eating breakfast. Patient denies any complaints of abdominal pain shortness of breath or chest pain. Patient continues to have elevated blood pressure therefore we will make adjustments to his current antihypertensive regimen. Will we will increase hydralazine to 50 mg p.o. 3 times daily and will continue nifedipine 60 mg daily. Will increase tamsulosin to twice daily as patient had urinary retention in the last couple days. Will continue to monitor blood pressure every 2 hours and make adjustments accordingly. Labs are stable. Creatinine is improving to 1.8, GFR 42 patient will need renally adjustment to diabetes medications including discontinuing metformin, renally adjusting Jardiance and adding renally dosed Januvia, and will continue glargine at 30 units daily instead of 36 units. Patient has no other complaints if the blood pressure is under control we will anticipate discharge patient tomorrow. Exam Vital Signs Temp Pulse Resp BP Pulse Ox O2 Del Method 96.9 F 78 18 191/82 H 99 Room Air 12/15/24 12:00 12/15/24 12:36 12/15/24 12:36 12/15/24 12:26 12/15/24 12:00 12/15/24 12:00 Narrative Exam GENERAL: A&Ox3 . turkmen speaking, cooperative, Awake, Not in acute distress NEURO: no focal neurological deficits HEENT: Atraumatic, Normocephalic. mucous membranes moist. Eyes open, symmetrical, & clear HEART: Normal Heart Sounds LUNGS: Clear to auscultation with no wheezing or crackles. ABDOMEN: soft, non-distended, non-tenderness, bowel sounds heard, no guarding or rebound tenderness SKIN: No Rash or ecchymoses EXTREMITIES: No edema, tenderness, able to move all 4 extremities, pedal pulses palpated Objective Labs 12/16/24 05:25 12/16/24 05:25 Labs: Laboratory Results - last 24 hr 12/15/24 05:37 WBC 4.5 RBC 3.05 L Hgb 9.0 L Hct 25.4 L MCV 83 MCH 29.5 MCHC 35.4 RDW Std Deviation 38.3 Plt Count 210 Neut % (Auto) 68 Lymph % (Auto) 21 [place] % (Auto) 8 Eos % (Auto) 3 Baso % (Auto) 0 Neut # (Auto) 3.1 Lymph # (Auto) 0.9 L [place] # (Auto) 0.4 Eos # (Auto) 0.1 Baso # (Auto) 0.0 Immature Gran # (Auto) 0.01 H Absolute Nucleated RBC 0.00 Immature Gran % 0 Nucleated RBC % 0 Sodium 138 Potassium 4.3 Chloride 105 Carbon Dioxide 24.1 Anion Gap 9 BUN 18 Creatinine 1.8 H Estim Creat Clear Calc 38.9 L eGFR 42 L BUN/Creatinine Ratio 10 L Glucose 90 D Calculated Osmolality 277 Calcium 8.6 Phosphorus 3.9 Magnesium 1.8 Quality Measures Quality Measures none Assessment & Plan Assessment Current Active Medications: Generic Name Dose Route Start Last Admin Trade Name Freq PRN Reason Stop Dose Admin Acetaminophen 650 mg 12/12/24 02:12 Acetaminophen 325 Mg Tablet PO 01/11/25 02:11 Q6H PRN Fever >99.5 Acetaminophen 1,000 mg 12/12/24 09:02 Acetaminophen 500 Mg Tablet PO 01/11/25 02:11 Q6H PRN PAIN SCALE 1-3 (mild Carvedilol 6.25 mg 12/12/24 17:30 12/13/24 08:12 Carvedilol 3.125 Mg Tablet PO 01/11/25 17:29 6.25 mg BIDWM NILAM Administration Dextrose 25 ml 12/12/24 02:19 Dextrose 50%-Water Inj 50 Ml Syringe IV 01/11/25 02:18 Q15MIN PRN BG 50-70 responsive npo pt Dextrose 50 ml 12/12/24 02:19 Dextrose 50%-Water Inj 50 Ml Syringe IV 01/11/25 02:18 Q15MIN PRN BG <50 OR BG <70 & pt unresponsive Docusate Sodium 100 mg 12/12/24 09:00 12/15/24 08:28 Docusate Sod 100 Mg Capsule PO 01/11/25 08:59 100 mg QDAY NILAM Administration Protocol Gabapentin 100 mg/ Gabapentin 400 mg 12/13/24 21:00 12/15/24 08:28 300 mg PO 01/12/25 20:59 400 mg BID NILAM Administration Glucagon 1 mg 12/12/24 02:19 Glucagon Inj 1 Mg Vial IM Q15MIN PRN BG <70, and no IV access Heparin Sodium (Porcine) 5,000 unit 12/13/24 09:00 12/15/24 08:29 Heparin Sod Inj 5000 Unit/Ml Vial SC 12/27/24 08:59 5,000 unit BID NILAM Administration Hydralazine HCl 25 mg 12/15/24 09:00 12/15/24 09:54 Hydralazine Hcl 25 Mg Tablet PO 01/14/25 08:59 25 mg TID NILAM Administration Insulin Glargine 10 unit 12/14/24 09:00 12/15/24 08:28 Insulin Glargine (Lantus) 5 Unit/0.05 Ml (Per 5 Units) SC 01/13/25 08:59 10 unit QDAY NILAM Administration Insulin Human Lispro 0 unit 12/12/24 07:30 12/15/24 12:03 Insulin Lispro (Admelog) 1 Unit/0.01 Ml Unit SC 01/11/25 07:29 2 unit AC NILAM Administration Protocol Levothyroxine Sodium 25 mcg 12/12/24 06:00 12/15/24 05:48 Levothyroxine Sodium 25 Mcg Tablet PO 01/11/25 05:59 25 mcg ACBR NILAM Administration Nifedipine 60 mg 12/12/24 03:00 12/15/24 06:04 Nifedipine Xl 30 Mg Tabcr PO 01/11/25 02:59 60 mg QDAY NILAM Administration Ondansetron HCl 4 mg 12/12/24 02:12 Ondansetron Inj 2 Mg/Ml Inj 2 Ml IVP 01/11/25 02:11 Q6H PRN NAUSEA OR VOMITING Protocol Pantoprazole Sodium 40 mg 12/13/24 21:00 12/15/24 08:28 Pantoprazole 40 Mg Tablet PO 01/12/25 20:59 40 mg BID NILAM Administration Pharmacy Consult 1 each 12/12/24 13:17 Pharmacy Renal Dose Adjustment 1 Ea XX 01/11/25 13:16 PRN PRN CONSULT Sennosides 1 tab 12/14/24 14:51 Senna Tablet PO 01/11/25 08:59 QDAY PRN Constipation Protocol Tamsulosin HCl 0.4 mg 12/15/24 21:00 Tamsulosin Hcl 0.4 Mg Capsule PO 01/14/25 20:59 BID NILAM Plan Mr. Marshall is a 59-year-old male with past medical history of hypertension, diabetes, and hypothyroidism presented to the ED due to nausea and vomiting. Patient was initially admitted for colitis and hypertensive urgency/emergency. #Primary Hypertension #Hypotension - resolved #Lactic acidosis - resolved #Possible beta-elijah versus calcium-channel elijah overdose - resolved Patient had rapid response on 12/13/24 due to hypotension therefore will hold all antihypertensive medications and continue to closely monitor in telemetry. Patient was given 1 mg glucagon, calcium chloride, and 1 mg atropine with good response. -Hydralazine to 50 mg p.o. 3 times daily and will continue nifedipine 60 mg daily. -Monitor BP Q2h #Acute kidney injury on CKD Likely secondary to dehydration due to vomiting episodes. Pt has a history of CKD, per chart reviewing patient creatinine has been between 2 to 3 and GFR 20-30. Has not followed with [employer] - Avoid nephrotoxins - Renally dose medications - Being followed by Nephrology, appreciate recommendations - Increase PO intake, advanced diet - Will have patient follow up with Nephrology outpatient #Hypertensive emergency - resolved Endorgan damage acute kidney injury, patient with blurry vision since Monday and associated headaches SBP >200 in the ED, was given labetalol in the ER. #Gastroenteritis/enterocolitis- resolved Patient has multiple episodes of nausea with vomiting nonbloody emesis and diarrhea CT abdomen/pelvis on admission showed No evidence of small bowel obstruction, free air or fluid collection. Findings suspicious for rectal fecal impaction. Thickening versus underdistention of the transverse colon and descending colon with pericolonic fat stranding/hyperemia. Possibility of mild colitis cannot be excluded. Findings suspicious for mild gastritis. 12/13/2024 Repeat abdomen/pelvis CT without contrast ordered after hypotensive rapid response to rule out acute abdominal pathology showed abnormal small bowel, fluid distended and significant wall thickening. There is however less suspicion for ischemic small bowel as patient's symptoms resolved and hypotension did not recur, lactic acid normalized. In the setting of ANGELA on CKD and patient not in sepsis decided that follow up CT with contrast was not warranted at this time. - Azithromycin 500 mg daily X 3 days (12/12/2024? 12/15/24) - Follow-up cultures #Anemia of CKD #Iron deficiency anemia Patient denies any history of melena or hematochezia patient states that he has had a colonoscopy approximately 3 to 4 years ago and there were no significant findings. Hemoglobin is stable at this time. Patient's anemia is likely due to CKD. Iron panel iron 20, TIBC 205, iron saturation 9, unsaturated iron binding 185. -We will continue to monitor and will transfuse if hemoglobin drops below 7 #HFpEF [55-60%] Found on chart review, med rec shows patient takes carvedilol and Lasix however when asked states he does not take these medications. Not in acute exacerbation at this time. Last echo on file 2023 shows normal EF 55-60%, small pericardial effusion located anteriorly. No evidence of cardiac tamponade. #Diabetes mellitus type 2 #Peripheral neuropathy Last A1c: 9.5, December 2023 - Insulin glargine 10 units daily ? SSI ? Hypoglycemia protocol in place #Hypothyroidism ? Continue levothyroxine 25 mcg as taken at home Health Maintenance: Disposition: Tele Feeding: carb consistent low Thrombo prophylaxis: Lovenox Gastric Ulcer prophylaxis: Pantoprazole CODE STATUS: Full code Assessment and plan discussed with my attending physician Dr. Sherman Mendoza (PGY-1)- Internal medicine resident Attending Provider Attestation/Addendum Face to face evaluation was performed by me. I have personally seen and examined the patient. I discussed the assessment and plan with the entire medicine team. I reviewed available medical records, imaging studies, laboratory results. I agree with the above subjective data, objective findings, assessment and plan except as corrected by me or noted below Acute kidney injury on CKD stage IV Congestive heart failure diastolic left ventricular compensated Essential hypertension Type 2 diabetes requiring chronic insulin therapy with diabetic nephropathy as well as peripheral neuropathy Symptomatic bradycardia acute gastroenteritis, likely viral. Epigastric tenderness with possible gastritis Lactic acidosis - continue to adjust antihypertensive regimen - Patient is becoming hypertensive now. Avoid nephrotoxic agents. Nephrology was consulted appreciate help. Renally dose medications finish short course with azithromycin for gastroenteritis - Pantoprazole for epigastric tenderness and likely gastritis will need peptic ulcer diet as well - More than > 30 minutes spent on the encounter
[2024-12-15] MEDS: hydrALAZINE HCL 25 MG TABLET 50 MG PO (21:47)
[2024-12-16] VITALS (14 sets, daily range): BP systolic 124–190; BP diastolic 67–96; PULSE 71–85; RESP 14–19; TEMP 36.1–37.2; O2SAT 94–99
[2024-12-16] MEDS: hydrALAZINE HCL 25 MG TABLET 50 MG PO ×2 (05:15→13:34)
[2024-12-16] MEDS: LEVOTHYROXINE SODIUM 25 MCG TABLET PO (05:16)
[2024-12-16 06:12] LABS: Basophils % (Auto) 0 % (0-2.5); Eosinophils # (Auto) 0.2 Thou/mm3 (0.0-0.5); Eosinophils % (Auto) 3 % (0-10); Hematocrit 25.4 % (41.0-53.0); Hemoglobin 8.9 g/dL (13.5-16.0); Immature Granulocytes % (Auto) 0 % (0-0); Immature Granulocytes Auto 0.01 Thou/mm3 (0.00-0.00); Lymphocytes # (Auto) 1.1 Thou/mm3 (1.0-4.8); Lymphocytes % (Auto) 21 % (10-50); Mean Corpuscular Hemoglobin 29.8 pg (25.0-35.0); Mean Corpuscular Volume 85 fL (80-100); Monocytes # (Auto) 0.4 Thou/mm3 (0.0-0.8); Monocytes % (Auto) 8 % (0-12); Neutrophils # (Auto) 3.5 Thou/mm3 (1.8-7.7); Neutrophils % (Auto) 67 % (37-80); Nucleated Red Blood Cell % 0 /100 WBC (0); Platelet Count 211 Thou/mm3 (140-440); RDW Standard Deviation 38.4 fL (35.1-43.9); Red Blood Count 2.99 Miln/mm3 (4.50-5.90); White Blood Count 5.2 Thou/mm3 (3.8-10.6)
[2024-12-16 06:30] LABS: Anion Gap 9 (7-16); BUN/Creatinine Ratio 10 Ratio (12-20); Blood Urea Nitrogen 20 mg/dL (9-23); Calcium 8.4 mg/dL (8.3-10.6); Carbon Dioxide 24.6 mMol/L (20.0-31.0); Chloride 103 mMol/L (98-107); Glucose 149 mg/dL (74-106); Osmolality,Calculated 279 (275-295); Potassium 4.4 mMol/L (3.4-5.1); Sodium 137 mMol/L (136-145); eGFR 37 See Note
[2024-12-16] MEDS: INSULIN GLARGINE (Lantus) 5 UNIT/0.05 ML (PER 5 UNITS) 10 UNIT SC (09:27)
[2024-12-16] MEDS: NIFEdipine XL 30 MG TABCR 60 MG PO (09:27)
[2024-12-16] MEDS: DOCUSATE SOD 100 MG CAPSULE PO (09:27)
[2024-12-16] MEDS: TAMSULOSIN HCL 0.4 MG CAPSULE PO (09:27)
[2024-12-16] MEDS: GABAPENTIN 100 MG, GABAPENTIN 300 MG 400 MG PO (09:27)
[2024-12-16] MEDS: HEPARIN SOD INJ 5000 UNIT/ML VIAL SC (09:27)
[2024-12-16] MEDS: PANTOPRAZOLE 40 MG TABLET PO (09:27)
--- NOTE | 2024-12-16 09:34 | ESPR_ITS ---
Documentation for date of: 12/16/24 Subjective Subjective Interval history: 12/13/2024: Patient examined at bedside today. No acute overnight events. Patient reports improvement in his symptoms including nausea vomiting and diarrhea. BUN/creatinine today is 23 and 2.1 respectively, potassium 4.5, phosphorus 2.9, magnesium 2.1, calcium 8.8, sodium 139, fasting blood sugar 259. White count 4.8, hemoglobin 8.6. Will continue with current management. 12/14/2024: Patient examined at bedside today. No acute overnight events. Patient reports that he is doing well. He is agreeable to going to follow-up with the kidney doctor outpatient. Denies any headache, abdominal pain. His BUN/creatinine today is 22 and 2.0 respectively, potassium 4.6, sodium 136, magnesium 1.9, phosphorus 3.7, calcium 9.4, vital stable. No other complaints at this time 12/16/2024: Patient examined at bedside today. No acute overnight events. Patient reports he is doing well, he slept well when he went to go home. His sodium today is 137, potassium 4.4, chloride 103, BUN/creatinine 20 and 2.0 respectively, bicarb 24, glucose 149, white count 5.2, hemoglobin 9, urine output 2300 cc, vitals stable. Exam Vital Signs Temp Pulse Resp BP Pulse Ox O2 Del Method 97.2 F 75 16 158/75 H 98 Room Air 12/16/24 08:00 12/16/24 08:00 12/16/24 08:00 12/16/24 08:00 12/16/24 08:00 12/16/24 08:00 Narrative Exam General: AAOx3, NAD, Martiniquais-speaking male HEENT: Moist mucous membranes, conjunctiva clear, EOMI, PERRLA, Cardiovascular: S1, S2, radial pulses +2 bilat, RRR Pulmonary: CTAB bilat no cough, no wheezing GI: Slight tenderness to palpitation, no guarding, rigidity, rebound tenderness or distension, bowel sounds present Extremities: No presence of trace or pitting edema in lower extremities bilaterally, dorsalis pedis pulses +2 bilaterally Neuro: AAOx3, no focal motor or sensory deficits in the UE or LE bilat Psych: Good judgement, thought and behavior Objective Labs 12/16/24 05:25 12/16/24 05:25 Labs: Laboratory Results - last 24 hr 12/16/24 05:25 WBC 5.2 RBC 2.99 L Hgb 8.9 L Hct 25.4 L MCV 85 MCH 29.8 MCHC 35.0 RDW Std Deviation 38.4 Plt Count 211 Neut % (Auto) 67 Lymph % (Auto) 21 [place] % (Auto) 8 Eos % (Auto) 3 Baso % (Auto) 0 Neut # (Auto) 3.5 Lymph # (Auto) 1.1 [place] # (Auto) 0.4 Eos # (Auto) 0.2 Baso # (Auto) 0.0 Immature Gran # (Auto) 0.01 H Absolute Nucleated RBC 0.00 Immature Gran % 0 Nucleated RBC % 0 Sodium 137 Potassium 4.4 Chloride 103 Carbon Dioxide 24.6 Anion Gap 9 BUN 20 Creatinine 2.0 H Estim Creat Clear Calc 35.0 L eGFR 37 L BUN/Creatinine Ratio 10 L Glucose 149 H D Calculated Osmolality 279 Calcium 8.4 Quality Measures Quality Measures none Assessment & Plan Assessment Current Active Medications: Generic Name Dose Route Start Last Admin Trade Name Jose PRN Reason Stop Dose Admin Acetaminophen 650 mg 12/12/24 02:12 Acetaminophen 325 Mg Tablet PO 01/11/25 02:11 Q6H PRN Fever >99.5 Acetaminophen 1,000 mg 12/12/24 09:02 Acetaminophen 500 Mg Tablet PO 01/11/25 02:11 Q6H PRN PAIN SCALE 1-3 (mild Dextrose 25 ml 12/12/24 02:19 Dextrose 50%-Water Inj 50 Ml Syringe IV 01/11/25 02:18 Q15MIN PRN BG 50-70 responsive npo pt Dextrose 50 ml 12/12/24 02:19 Dextrose 50%-Water Inj 50 Ml Syringe IV 01/11/25 02:18 Q15MIN PRN BG <50 OR BG <70 & pt unresponsive Docusate Sodium 100 mg 12/12/24 09:00 12/15/24 08:28 Docusate Sod 100 Mg Capsule PO 01/11/25 08:59 100 mg QDAY NILAM Administration Protocol Gabapentin 100 mg/ Gabapentin 400 mg 12/13/24 21:00 12/15/24 21:47 300 mg PO 01/12/25 20:59 400 mg BID NILAM Administration Glucagon 1 mg 12/12/24 02:19 Glucagon Inj 1 Mg Vial IM Q15MIN PRN BG <70, and no IV access Heparin Sodium (Porcine) 5,000 unit 12/13/24 09:00 12/15/24 21:48 Heparin Sod Inj 5000 Unit/Ml Vial SC 12/27/24 08:59 5,000 unit BID NILAM Administration Hydralazine HCl 50 mg 12/15/24 22:00 12/16/24 05:15 Hydralazine Hcl 25 Mg Tablet PO 01/14/25 21:59 50 mg TID NILAM Administration Insulin Glargine 10 unit 12/14/24 09:00 12/15/24 08:28 Insulin Glargine (Lantus) 5 Unit/0.05 Ml (Per 5 Units) SC 01/13/25 08:59 10 unit QDAY NILAM Administration Insulin Human Lispro 0 unit 12/12/24 07:30 12/16/24 07:34 Insulin Lispro (Admelog) 1 Unit/0.01 Ml Unit SC 01/11/25 07:29 Not Given AC NILAM Protocol Levothyroxine Sodium 25 mcg 12/12/24 06:00 12/16/24 05:16 Levothyroxine Sodium 25 Mcg Tablet PO 01/11/25 05:59 25 mcg ACBR NILAM Administration Nifedipine 60 mg 12/12/24 03:00 12/15/24 06:04 Nifedipine Xl 30 Mg Tabcr PO 01/11/25 02:59 60 mg QDAY NILAM Administration Ondansetron HCl 4 mg 12/12/24 02:12 Ondansetron Inj 2 Mg/Ml Inj 2 Ml IVP 01/11/25 02:11 Q6H PRN NAUSEA OR VOMITING Protocol Pantoprazole Sodium 40 mg 12/13/24 21:00 12/15/24 21:48 Pantoprazole 40 Mg Tablet PO 01/12/25 20:59 40 mg BID NILAM Administration Pharmacy Consult 1 each 12/12/24 13:17 Pharmacy Renal Dose Adjustment 1 Ea XX 01/11/25 13:16 PRN PRN CONSULT Sennosides 1 tab 12/14/24 14:51 Senna Tablet PO 01/11/25 08:59 QDAY PRN Constipation Protocol Tamsulosin HCl 0.4 mg 12/15/24 21:00 12/15/24 21:47 Tamsulosin Hcl 0.4 Mg Capsule PO 01/14/25 20:59 0.4 mg BID NILAM Administration Plan Assessment 59-year-old male with past medical history of hypertension, diabetes, hypothyroidism, HFpEF presented to the ED due to nausea and vomiting. Patient will be admitted for colitis and hypertensive urgency/emergency. #Acute Kidney injury on CKD, improving #Lactic acidosis, resolved DDx: Prerenal versus ATN versus obstructive History of stones, BPH: Yes to both per patient No Singh at this time Likely hypovolemia, related to GI losses Creatinine today is 2.2, BUN 30 Imaging showed nonobstructing tiny renal calculi, however they are nonobstructing or exhibit hydronephrosis Unsure what stage CKD pt has, need to determine baseline, however pt has had ANGELA on CKD before in the past Etiology of CKD could be attributed to long-standing uncontrolled diabetes (A1c 10.5) FeNa: 1.5% (Indeterminate) Cr 2.0 today, may be new baseline UOP today 2.3 L Patient will need close follow up for CKD outpatient Renal ultrasound shows: Moderate bilateral renal parenchymal scarring Left kidney shows cortical thinning Plan: ? Avoid nephrotoxins ? Renally dose medications ? Strict JOSE's ? Trend CMP #Colitis, improving #Vomiting, improving #Diarrhea, improving Has had ongoing symptoms since 2019 Patient has had colonoscopy and EGD done before Unlikely to be an acute infection He needs further workup for IBS, IBD, microscopic colitis Patient may also benefit from C. difficile testing and other stool testing as patient recently used antibiotics Patient using azithromycin for colitis, could consider budesonide at this point Plan: ? Consider C. difficile testing ? Consider GI consult ? Consider stool cultures, WBCs, calprotectin ? Consider budesonide ? Antiemetics #Bradycardia #Hypertensive emergency #HFpEF [55-60%] #Diabetes mellitus type 2 #Peripheral neuropathy #Hypothyroidism Above handled by primary hospitalist team Patient seen and care discussed with my attending physician, Dr. Arleen Payton, PGY-1 Attending Provider Attestation/Addendum Patient seen and examined with resident physician Dr. Tate. Note reviewed, agree with findings and recommendations.
--- NOTE | 2024-12-16 10:31 | PC.SS ---
rounding note: Monitoring blood pressure. D/c plan: home
[2024-12-16] MEDS: LOSARTAN POTASSIUM 25 MG TABLET PO ×2 (11:18→15:23)
[2024-12-16] MEDS: INSULIN LISPRO (AdmeLOG) 1 UNIT/0.01 ML UNIT SC (11:18)
--- NOTE | 2024-12-16 14:40 | PD.ADDDSCHGE ---
Addendum Discharge Addendum Date of report being addended: 12/16/24 Narrative: Face to face evaluation was performed by me. I have personally seen and examined the patient. I discussed the assessment and plan with the entire medicine team. I reviewed available medical records, imaging studies, laboratory results. I agree with the above subjective data, objective findings, assessment and plan except as corrected by me or noted below Acute kidney injury on CKD stage IV Congestive heart failure diastolic left ventricular compensated Essential hypertension Type 2 diabetes requiring chronic insulin therapy with diabetic nephropathy as well as peripheral neuropathy Symptomatic bradycardia acute gastroenteritis, likely viral. Epigastric tenderness with possible gastritis Lactic acidosis Patient wants to go home, adjusting antihypertensive regimen resume home losartan 25 mg daily, hydralazine 50 mg 3 times daily was added, tamsulosin made 0.4 mg twice daily already. Nifedipine 60 mg daily added as well?discharge planning. Home medication reconciliation done Lantus dose decreased Jardiance dose adjusted to 10 mg daily considering her profound kidney failure, Januvia 50 mg added, metformin stopped More than > 30 minutes spent on the encounter
--- NOTE | 2024-12-16 14:50 | PC.NURSE ---
SPOKE WITH RAMIRO AFTER NOTIFIED OF CURRENT BP SEE VS. ORDERED X1 LOSARTAN AND UPDATED DISCHARGE ORDER AND INSTRUCTIONS. PER MD OK TO DISCHARGE NOW AND NO NEED FOR FURTHER BP MEDS. PER MD EDUCATE PT ON BP MEDS DUE TODAY AND EDUCATE PT ON BP MONITORING.
--- NOTE | 2024-12-16 15:34 | PD.RESDS ---
Planned Discharge Date 12/16/24 DS: Providers Provider Date of admission: 12/12/24 02:13 Primary care physician: Blake Gomez PA-C Admitting Provider: Yasmany Levy MD Attending Provider on Admission: Abiel Whitaker MD Consults: 12/12/24 04:46 Health Equity Referral - Knowledge Deficit Routine Comment: Positive screening for knowledge deficit needs. Health Equity Referral - Nutrition Routine Comment: Positive screening for nutrition needs. Health Equity Referral - Transportation Routine Comment: Positive screening for transportation needs. 12/12/24 11:00 Consult to Nephrology Routine Comment: Consulting Provider: Marianne Bacon 12/14/24 09:29 Referral Physical Therapy Routine Comment: Physician Instructions: Attending Provider on DC: Adair Mendoza MD Discharging Provider: Adair Mendoza MD DS: Diagnosis Problem List Completed Was Problem List Reviewed/Reconciled?: Yes Hospital Course Hospital Course Hospital course: Mr. Marshall is a 59-year-old male with past medical history of hypertension, insulin-dependent diabetes, hypothyroidism, HFpEF presented to the ED due to nausea and vomiting. Patient was found to have systolic blood pressure above 200 and acute kidney injury in the emergency room. Patient was admitted for management of hypertensive emergency and ANGELA on CKD. Patient was also found to have lactic acidosis which then resolved. Patient was given IV fluids and was started on azithromycin 500 mg daily for 3 days for gastroenteritis. Patient's symptoms of nausea vomiting has resolved patient continues to have chronic diarrhea post cholecystectomy. Patient's hospitalization was extended due to controlling his blood pressure. Patient was started on nifedipine 60 mg daily, hydralazine 50 mg 3 times daily and resumed home losartan at 50 mg daily. Patient was also prescribed clonidine 0.1 mg as needed as needed if the systolic blood pressure is above 170. Patient is advised and educated on keeping a daily journal of blood pressure readings twice a day to bring to the primary care as well as pipe smoking machine operator. Patient has history of CKD and creatinine is back to his baseline of CKD patient is strongly advised to follow-up with pipe smoking machine operator Dr. Bacon outpatient after discharge for continued close monitoring of kidney function. Due to patient's CKD patient is diabetic regimen is renally adjusted and discontinued metformin. Patient is hemodynamically stable, blood pressure is under control and patient is ready to be discharged home to self-care with the following instructions. Discharge Recommendations -Follow up with PCP within 1 week of discharge, if you do not have a primary care you can come see us at the [facility] by calling [phone] -We have made some changes to your diabetic and high blood pressure medications due to your kidney disease. please take the new medications as directed, keep a journal of your daily blood glucose and blood pressure readings to review with your primary care -You have been prescribed Clonidine as needed for when your systolic blood pressure is above 170. -Please repeat BMP with in 1 week after discharge -Please follow up with pipe smoking machine operator (kidney doctor) Dr. Bacon within 1 week after discharge -Continue rest of medications as previously prescribed -Return to the ED or call EMS if symptoms return and/or worsen Hospitalization Diagnosis #Primary Hypertension #Hypotension - resolved #Lactic acidosis - resolved #Possible beta-elijah versus calcium-channel elijah overdose - resolved #Acute kidney injury on CKD #Hypertensive emergency - resolved #Gastroenteritis/enterocolitis- resolved #Anemia of CKD #Iron deficiency anemia #HFpEF [55-60%] #Diabetes mellitus type 2 #Peripheral neuropathy #Hypothyroidism Assessment and plan discussed with my attending physician Dr. Sherman Mendoza (PGY-1)- Internal medicine resident Time Spent with Patient Time attestation: Total time spent providing and/or coordinating discharge services: Time spent: Greater than 30 minutes Exam Vital Signs Temp Pulse Resp BP Pulse Ox O2 Del Method 97.4 F 71 14 174/86 H 99 Room Air 12/16/24 12:00 12/16/24 15:23 12/16/24 12:00 12/16/24 15:23 12/16/24 12:00 12/16/24 08:00 Narrative Exam GENERAL: A&Ox3 . bermudian speaking, cooperative, Awake, Not in acute distress NEURO: no focal neurological deficits HEENT: Atraumatic, Normocephalic. mucous membranes moist. Eyes open, symmetrical, & clear HEART: Normal Heart Sounds LUNGS: Clear to auscultation with no wheezing or crackles. ABDOMEN: soft, non-distended, non-tenderness, bowel sounds heard, no guarding or rebound tenderness SKIN: No Rash or ecchymoses EXTREMITIES: No edema, tenderness, able to move all 4 extremities, pedal pulses palpated Discharge Plan Plan Patient Disposition: HOME (Self Care) Patient condition on transfer: Stable Care Plan Goals: -Follow up with PCP within 1 week of discharge, if you do not have a primary care you can come see us at the [facility] by calling [phone] -We have made some changes to your diabetic and high blood pressure medications due to your kidney disease. please take the new medications as directed, keep a journal of your daily blood glucose and blood pressure readings to review with your primary care -You have been prescribed Clonidine as needed for when your systolic blood pressure is above 170. -Please repeat BMP with in 1 week after discharge -Please follow up with pipe smoking machine operator (kidney doctor) Dr. Bacon within 1 week after discharge -Continue rest of medications as previously prescribed -Return to the ED or call EMS if symptoms return and/or worsen Miguelina un seguimiento con bertrand m?dico de atenci?n primaria dentro de hardeep semana despu?s del leslie. Si no tiene un m?dico de atenci?n primaria, puede venir a vernos en el [facility]?serena llamando al [phone]. Hemos realizado algunos cambios en lino medicamentos para la diabetes y la hipertensi?n debido a bertrand enfermedad renal. Por favor, tome los nuevos medicamentos seg?n las indicaciones, mantenga un registro de lino lecturas diarias de glucosa en daniele y presi?n arterial para revisarlas con bertrand m?dico de atenci?n primaria. Se le farias recetado Clonidina seg?n sea necesario cuando bertrand presi?n arterial sist?lica est? por encima de 170. Por favor, repita el BMP dentro de hardeep semana despu?s del leslie. Por favor, miguelina un seguimiento con el nefr?logo (m?dico de ri?ones) Dr. Bacon dentro de hardeep semana despu?s del leslie. Contin?e con el amanda de los medicamentos destini fide le fueron recetados previamente. Regrese a la kat de emergencias o llame al EMS si los s?ntomas regresan y/o empeoran. Prescriptions/Referrals Prescriptions/Med Rec: New (DME) FreeStyle Huey 3 Plus Sensor Device See Rx Instructions .Route Qty: 2 3RF Rx Instructions: As directed (DME) FreeStyle Huey 3 [place] [facility] See Rx Instructions .Route Qty: 1 0RF Rx Instructions: As directed gabapentin 400 mg Capsule 400 mg PO BID 30 Days Qty: 60 1RF nifedipine 30 mg Tablet Extended Release 24hr 60 mg PO QDAY 30 Days Qty: 60 0RF tamsulosin 0.4 mg Capsule 0.4 mg PO BID 30 Days Qty: 60 0RF pantoprazole 40 mg Tablet,Delayed Release (Dr/Ec) 40 mg PO BID 30 Days Qty: 60 0RF Jardiance 10 mg tablet 10 mg PO QAM Qty: 30 3RF Januvia 50 mg tablet 50 mg PO QDAY Qty: 30 3RF hydralazine 50 mg tablet 50 mg PO TID 30 Days Qty: 90 0RF clonidine HCl 0.1 mg tablet 0.1 mg PO BID PRN (Reason: hypertensive emergency) Qty: 10 0RF Rx Instructions: take if SBP > 170 losartan 50 mg tablet 50 mg PO QDAY Qty: 30 0RF Continued pravastatin 40 mg Tablet 40 mg PO QDAY levothyroxine 25 mcg capsule 25 mcg PO ACBR Qty: 30 2RF Rx Instructions: Take 1 capsule (25mcg) every morning, 2 hours before any food or other medications (DME) pen needle, diabetic 29 gauge x 1/2 needle See Rx Instructions .Route Qty: 100 0RF Rx Instructions: As directed ([facility] [place] lancets [Accu-Chek Softclix Lancets] [facility] [place] Rx Instructions .Route Qty: 100 0RF Rx Instructions: As directed Changed furosemide [Lasix] 40 mg tablet 40 mg PO PRN PRN (Reason: edema) 30 Days Qty: 30 0RF Rx Instructions: take as needed for leg swelling or shortness of breath and weight gain more than 2 pounds in 1 day insulin glargine 100 unit/mL (3 mL) insulin pen 30 unit subcut .daily 30 Days Qty: 0 0RF Patient Comments: At night Discontinued tamsulosin 0.4 mg Capsule 0.4 mg PO QDAY aspirin 81 mg tablet,delayed release (DR/EC) 81 mg PO QDAY carvedilol 6.25 mg tablet 6.25 mg PO BID metformin 500 mg tablet extended release 24 hr 500 mg PO QDAY Qty: 30 0RF Jardiance 25 mg tablet 25 mg PO QDAY Qty: 30 0RF losartan 25 mg tablet 25 mg PO BID Patient Comments: TOME 1 TABLETA POR V A ORAL DOS VECES AL D A amoxicillin-pot clavulanate 875-125 mg tablet 1 tab PO Q12H Patient Comments: TOME 1 TABLETA POR V A ORAL CADA 12 HORAS POR 10 D gabapentin 600 mg tablet 600 mg PO Q12H Patient Comments: TOME 1 TABLETA POR V A ORAL DOS VECES AL D A Referrals: Blake Gomez PA-C [Primary Care Provider] - Marianne Bacon MD [Physician] - Patient/Caregiver Discharge Instructions Discharge Activity: activity as tolerated Education Materials: Controlling High Blood Pressure, Diabetes and High Blood Pressure Print Language: Syriac Activity Restrictions/Additional Instructions: Follow-up with Dr. Bacon in 1-2 weeks Stand Alone Forms: Kelsey Award Info., Patient Portal Info Letter Discharge Order Discharge Orders: Discharge (Routine); Ordered 12/16/24 Ordered By: Adair Mendoza Quality Discharge Quality Measures VTE prophylaxis Attestestation Attestation See separate and discharge summary addendum done
--- NOTE | 2024-12-16 16:18 | PC.SS ---
Follow up note: Pt will d/c home today.
--- NOTE | 2024-12-16 16:22 | PC.NURSE ---
LEAD PASTOR RETURN TO TRAVEL MANAGER, PATTY.
== END 2024-12-16 16:25 | disposition home or self-care (01) | DRG 392 ==
LOC: SERX 12-12 01:45 → SERHOLD 12-12 03:12 → S3SX 12-12 04:20 → S2NX 12-13 14:41
PROVIDERS: Student in an Organized Health Care Education/Training Program; Admitting Provider Student in an Organized Health Care Education/Training Program; Emergency Provider Emergency Medicine; PCP Family Medicine; Visit Provider Internal Medicine
DX: K52.9 Noninfective gastroenteritis and colitis, unspecified (principal); I50.32 Chronic diastolic (congestive) heart failure; I16.1 Hypertensive emergency; E87.20 Acidosis, unspecified; N17.9 Acute kidney failure, unspecified; I13.0 Hypertensive heart and chronic kidney disease with heart failure and stage 1 through stage 4 chronic kidney disease, or unspecified chronic kidney disease; I31.39 Other pericardial effusion (noninflammatory); N18.4 Chronic kidney disease, stage 4 (severe); E03.9 Hypothyroidism, unspecified; Z90.49 Acquired absence of other specified parts of digestive tract; E87.6 Hypokalemia; Z89.422 Acquired absence of other left toe(s); I16.0 Hypertensive urgency; H53.8 Other visual disturbances; E11.22 Type 2 diabetes mellitus with diabetic chronic kidney disease; D50.9 Iron deficiency anemia, unspecified; D63.1 Anemia in chronic kidney disease; E11.42 Type 2 diabetes mellitus with diabetic polyneuropathy; E78.00 Pure hypercholesterolemia, unspecified; K29.70 Gastritis, unspecified, without bleeding; I25.10 Atherosclerotic heart disease of native coronary artery without angina pectoris; N40.1 Benign prostatic hyperplasia with lower urinary tract symptoms; R33.8 Other retention of urine; Z79.4 Long term (current) use of insulin; Z79.899 Other long term (current) drug therapy; Z87.442 Personal history of urinary calculi; I95.9 Hypotension, unspecified
CPT/HCPCS: 36415; 70450; 71045; 74018; 74176; 76770; 80048; 80053; 81001; 82010; 82436; 82570; 83036; 83605; 83690; 83735; 83880; 84100; 84133; 84145; 84300; 84443; 84484; 85025; 87040; 87811; 93005; 96361; 96365; 96367; 96375; 99285; J0360; J0461; J1644; J1650; J1756; J1815; J2270; J2405; J2470; J2543; J3475; J3480; J3490; J7030; J7120; A9270; J1920

== ENCOUNTER 2025-01-16 09:24 | Outpatient (AMB) | payer MEDICARE, MEDICAID, SELFPAY ==
--- NOTE | 2025-01-16 09:38 | PD.RESCLINIC ---
Vital Signs 01/16/25 09:50 Height 1.63 m Height Method Stated Weight 62.256 kg Weight Measurement Method Standing Scale BMI 23.6 BP 136/57 H Blood Pressure Source Automatic Cuff Blood Pressure Location Right Upper Arm Position Sitting Respiration 18 Pulse 62 Pulse Source Monitor Temp 97.6 F Temp Source Temporal Artery Scan Pulse Oximetry (%) 98 Oxygen Delivery Method Room Air Allergies/Meds Allergies & Medications Allergies No Known Allergies Allergy (Verified 01/16/25 09:53) Medication Reconciliation pravastatin 40 mg tablet 40 mg PO QDAY 12/21/18 [History Confirmed 01/16/25] lancets (Accu-Chek Softclix Lancets) #100 ea 12/07/23 [Rx Confirmed 01/16/25] levothyroxine 25 mcg capsule 25 mcg PO ACBR #30 caps 12/07/23 [Rx Confirmed 01/16/25] pen needle, diabetic 29 gauge x 1/2 #100 ea 12/07/23 [Rx Confirmed 01/16/25] blood-glucose sensor (ANDA NetworksStyle Huey 3 Plus Sensor device) #2 ea 12/14/24 [Rx Confirmed 01/16/25] blood-glucose,configuration management advisor,cont (FreeStyle Huey 3 Claude) #1 ea 12/14/24 [Rx Confirmed 01/16/25] empagliflozin 10 mg tablet (Jardiance) 10 mg PO QAM #30 tabs 12/15/24 [Rx Confirmed 01/16/25] furosemide 40 mg tablet (Lasix) 40 mg PO PRN PRN edema 30 days #30 tabs 12/15/24 [Rx Confirmed 01/16/25] insulin glargine 100 unit/mL (3 mL) subcutaneous pen 30 unit (0.3 mL) subcut .daily 30 days #0 mL 12/15/24 [Rx Confirmed 01/16/25] sitagliptin phosphate 50 mg tablet (Januvia) 50 mg PO QDAY #30 tabs 12/15/24 [Rx Confirmed 01/16/25] clonidine HCl 0.1 mg tablet 0.1 mg PO BID PRN hypertensive emergency #10 tabs 12/16/24 [Rx Confirmed 01/16/25] losartan 50 mg tablet 50 mg PO QDAY #30 tabs 12/16/24 [Rx Confirmed 01/16/25] cholestyramine 4 gram oral powder 4 g PO TID #201.6 grams 01/16/25 [Rx] gabapentin 400 mg capsule 400 mg PO TID 30 days #90 caps 01/16/25 [Rx] lancets (Accu-Chek Softclix Lancets) #100 ea 01/16/25 [Rx] MA Intake Visit Data Collection New Patient or Established: Established Patient (seen at [facility] within 3 years) Seen by Clinical Staff ONLY (RN/MA): No Pain Present Currently: No Pain scale:: 0 Pain Scale Used: Jung-Thomas/Numerical [employer] [facility] [employer] Required: No PCP or OBGYN visit in last 3 months: No Hx Now: No Do You Feel Safe at Home: Yes Authorities Contacted: N/A Smoking Status Smoking Status: Never smoker Immunization / Flu Flu Vaccine in the Last 12 Months: No Flu Vaccine Exclusion Criteria: No Exclusion Criteria Past Medical History Past Medical History NEUROLOGIC: Negative Neurological Disorders or Seizures CARDIAC: Positive Cardiac Disorders, Peripheral Vascular Disease, Hypercholesterolemia and Hypertension; Negative Congestive Heart Failure RESPIRATORY: Negative Chronic Obstructive Pulmonary Disease (COPD) or Asthma GASTROINTESTINAL: Positive Gastrointestinal Disorders, Pancreatitis, Gall Bladder Disease and Gastroesophageal Reflux Disease GENITOURINARY: Positive Genitourinary Disorders and Kidney Stones; Negative Renal Disease MUSCULOSKELETAL: Positive Arthritis ENDOCRINE: Positive Endocrine Disorders and Diabetes Mellitus Type 2; Negative Diabetes Mellitus Type 1 HEMATOLOGIC: Negative Blood Disorders, Anemia, Sickle Cell Disease or Clotting Problems OTHER HISTORY: Positive Falls; Negative Hospitalization, Autoimmune Disease, Shingles, Blood Transfusions, Anesthesia Reactions, Chemotherapy, Radiation Therapy or MRSA Family History FAMILY HISTORY: Positive Family Cancer; Negative Family Psychiatric Problems, Family Respiratory Disorders, Family Cardiac Disorders, Family Gastrointestinal Problems, Family Surgery or Family Anesthesia Reaction Surgical History SURGICAL: Positive Abdominal Surgery, Joint Replacement and Amputation (Left Foot Great Toe) Social History SMOKING STATUS: Smoking status: Never smoker ALCOHOL: Alcohol Intake: Never HOUSING: Housing: House LIVES WITH: Lives With: Significant Other Patient Portal Carlos Social History Living Situation History Housing: House Housing Other:: Pt lives with significant other Tobacco History Smoking Status: Never smoker Alcohol History Alcohol Intake: Never Domestic Abuse History Do You Feel Safe at Home: Yes Review of Systems Report any current symptoms Only answer those that you have currently: Past Medical History Past Medical History Have you ever been diagnosed with any of the following: Neurological Problems Seizures: No Cardiology Problems Peripheral Vascular Disease: Yes Hypercholesterolemia: Yes Congestive Heart Failure: No Hypertension: Yes Respiratory Problems Chronic Obstructive Pulmonary Disease (COPD): No Asthma: No Stomache/Intestinal Problems Pancreatitis: Yes Gall Bladder Disease: Yes Gastroesophageal Reflux Disease: Yes Genital/Urinary Problems Renal Disease: No Kidney Stones: Yes Musculoskeletal Problems Arthritis: Yes Endocrine Problems Diabetes Mellitus Type 1: No Diabetes Mellitus Type 2: Yes Blood Problems Anemia: No Sickle Cell Disease: No Clotting Problems: No Other Problems Hospitalization: No Autoimmune Disease: No Shingles: No Falls: Yes Blood Transfusions: No Anesthesia Reactions: No Chemotherapy: No Radiation Therapy: No MRSA: No History of Present Illness HPI Narrative 59-year-old male with past medical history of hypertension, hyperlipidemia, CKD, DM 2, nephrolithiasis, and peripheral neuropathy was seen at the [facility] to establish health care. Patient was recently discharged from the hospital on 12/16/2024 for hypertensive emergency. Patient's throat pressure was pretty elevated during hospital admission and his hospital stay was prolonged due to difficult to control blood pressure. Blood pressure today was 136/57. Patient does not complain of any headaches, visual deficits, or chest pain. Patient states that he has been taking all his medications as prescribed except for his levothyroxine that this medication has been causing him to get some palpitations. He also complains of diarrhea with some abdominal pain, but he states that the has been chronic since he got his cholecystectomy. Denies any nausea, vomiting, shortness of breath, but admits pain in his legs and his lower back which radiates to his right lower leg when he bends over. Otherwise patient has no new complaints patient recently got blood work therefore we will do for blood work for now except for CMP as he is currently on Lasix. Patient states that he needs a refill of lancets. He has not seen his nursing program coordinator as of yet as he needs a referral. Review of Systems Review of Systems Narrative Review of Systems: Constitutional: Denies sweats, Denies weight loss/gain, Denies fever, Denies chills. HEENT: Denies hearing loss, Denies ear pain, Denies postnasal drip, Denies double vision, Denies blurry vision. Respiratory: Denies shortness of breath, Denies cough, Denies wheezing. Cardiovascular: Denies chest pain, Admits palpitations, Denies sudden loss of consciousness. GI: Denies blood in stool, Denies constipation, Admits diarrhea, Admits abdominal pain, Denies difficulty swallowing, Denies nausea or vomit. : Denies urinary incontinence, Denies pain while urinating, Denies increased urinary frequency. MSK: Denies joint pain, Denies joint swelling, Denies numbness. Skin: Denies rash, Denies itching, Denies easy bruising. Neuro: Denies headaches, Denies dizziness, Denies seizures. Objective/Exam General General Appearance: alert, in no apparent distress, comfortable and cooperative Head Head exam: atraumatic and normocephalic Eye Eye exam: Present normal appearance, PERRL and EOMI ENT ENT exam: Present normal exam, normal oropharynx and mucous membranes moist Neck Neck exam: Present normal inspection and full ROM Resp Respiratory exam: Present normal lung sounds bilaterally Card Cardiovascular exam: Present regular rate, normal rhythm and normal heart sounds Abdominal Abdominal exam: Present soft and normal bowel sounds Extremities Extremities exam: Present normal inspection and full ROM Neuro Neurological exam: Present alert, oriented X3 and CN II-XII intact Assessment & Plan Diagnosis / Problem List (1) HTN (hypertension): Status: Acute Qualifiers: Hypertension type: unspecified Qualified Code(s): I10 - Essential (primary) hypertension Assessment & Plan: Patient was recently in the hospital due to hypertensive emergency which resolved after initiation of multiple blood pressure medications. Blood pressure today was 136/57 Plan: Please continue taking losartan 50 mg daily, nifedipine 20 mg daily, and hydralazine 50 mg 3 times daily Will continue to monitor patient's blood pressure (2) DM (diabetes mellitus): Status: Acute Qualifiers: Diabetes mellitus type: type 2 Diabetes mellitus termite inspector insulin use: unspecified termite inspector insulin use status Diabetes mellitus complication status: without complication Qualified Code(s): E11.9 - Type 2 diabetes mellitus without complications Assessment & Plan: Patient's last A1c was 10.5 on 12/2024 Plan: Continue taking Januvia and Jardiance Please continue insulin 30 units subcu twice daily Refilled lancets Keep a daily diary of blood sugars which will be followed up on next visit (3) Lumbago with sciatica, right side: Status: Acute Qualifiers: Chronicity: chronic Back pain laterality: right Qualified Code(s): M54.41 - Lumbago with sciatica, right side; G89.29 - Other chronic pain Assessment & Plan: Patient states that he has been having mid/low back pain with right lower leg sciatica pain. He states that this pain is better when he is laying flat, but it worsens when he leans forward. Plan: Will get x-rays of lumbar spine Avoid NSAIDs, use Tylenol Gabapentin 400 mg 3 times daily (4) Diarrhea: Status: Acute Qualifiers: Diarrhea type: unspecified type Qualified Code(s): R19.7 - Diarrhea, unspecified Assessment & Plan: Patient states he has diarrhea on and off ever since his gallbladder was taken out Last colonoscopy over 5 years ago was done was normal No history of colon cancer or abnormal colonoscopies in the past Plan: Will try cholestyramine for now to see if there is improvement (5) CKD (chronic kidney disease): Status: Acute Qualifiers: Chronic kidney disease stage: unspecified stage Qualified Code(s): N18.9 - Chronic kidney disease, unspecified Assessment & Plan: Patient has baseline CKD likely from uncontrolled diabetes Patient is baseline creatinine is around 1.8-2 Plan: Will refer to nursing program coordinator As patient is on Lasix will get a CMP to monitor kidney functions (6) Peripheral neuropathy: Status: Acute Qualifiers: Peripheral neuropathy type: polyneuropathy, unspecified Qualified Code(s): G62.9 - Polyneuropathy, unspecified Assessment & Plan: Patient complains of peripheral neuropathy which could be secondary to longstanding uncontrolled diabetes poses could be due to sciatica pain as well Plan: Increase gabapentin 400 twice daily to 3 times daily. Orders: Orders Comprehensive Metabolic Panel Today E11.9 - Type 2 diabetes mellitus without complications XR thoraco-lumbar 2V Today M54.40 - Lumbago with sciatica, unspecified side Referrals Nephrology N18.9 - Chronic kidney disease, unspecified Additional Plan Case disclosed with Attending Dr. Taryn Fregoso PGY1 Disclaimer: Even though this this note was dictated by speech recognition and even though it was carefully revised there may still be minor errors in forestry aid due to voice recognition software. Office Procedures [facility] Level of Care Nursing/Assessment Patient Status: Established Patient Nursing Assessment/Reassessment: Medication Reconciliation, Update PMH in EMR and Vital Signs Coordination of Care: Complex Care and Chronic Disease 1-5, Consent,records obtained, informed consent, Education Simp Pt/Fam and Staff clarify orders Established Patient Charge Established Patient Point Assignment: 85 Established Patient Point Charge: Level 3 (62-144)
[2025-01-16 09:50] VITALS: BP 136/57; PULSE 62; RESP 18; TEMP 36.4; O2SAT 98; BMI 23.6
== END 2025-01-16 10:36 | disposition home or self-care (01) ==
LOC: HODAHC 09:24
PROVIDERS: PCP Family Medicine; Referring Provider Family Medicine; Supervising Provider Internal Medicine
DX: E11.42 Type 2 diabetes mellitus with diabetic polyneuropathy (principal); E11.22 Type 2 diabetes mellitus with diabetic chronic kidney disease; I12.9 Hypertensive chronic kidney disease with stage 1 through stage 4 chronic kidney disease, or unspecified chronic kidney disease; N18.9 Chronic kidney disease, unspecified; R19.7 Diarrhea, unspecified; M54.41 Lumbago with sciatica, right side; Z79.4 Long term (current) use of insulin; Z79.84 Long term (current) use of oral hypoglycemic drugs
CPT/HCPCS: 99213; G0463

== ENCOUNTER → 2025-01-27 | Outpatient (CLI) | payer MEDICARE, MEDICAID, SELFPAY ==
--- NOTE | 2025-01-27 08:28 | XR_ITS ---
Examination: Thoracolumbar spine 2 views Technique one AP lateral thoracolumbar spine 2 views Date and time: January 27, 2025 0845 hours INDICATIONS: Mid to lower back pain beginning 3 years ago. FINDINGS: Thoracolumbar dextroscoliosis 8 degrees No vertebral body fracture Advanced degenerative disc disease L5-S1 IMPRESSION: Advanced degenerative disc disease L5-S1
== END | disposition home or self-care (01) ==
DX: M51.370 Other intervertebral disc degeneration, lumbosacral region with discogenic back pain only (principal)
CPT/HCPCS: 72080

== ENCOUNTER 2025-02-06 09:16 | Outpatient (AMB) | payer MEDICARE, MEDICAID, SELFPAY ==
[2025-02-06 09:35] VITALS: BP 100/52; PULSE 66; RESP 19; TEMP 36.4; O2SAT 97; BMI 23.2
--- NOTE | 2025-02-06 09:35 | ACNOTE_ITS ---
Vital Signs 02/06/25 09:35 Height 1.63 m Height Method Stated Weight 61.689 kg Weight Measurement Method Standing Scale BMI 23.2 BP 100/52 L Blood Pressure Source Automatic Cuff Blood Pressure Location Right Upper Arm Position Sitting Respiration 19 Pulse 66 Pulse Source Monitor Temp 97.6 F Temp Source Temporal Artery Scan Pulse Oximetry (%) 97 Oxygen Delivery Method Room Air Allergies/Meds Allergies & Medications Allergies No Known Allergies Allergy (Verified 02/06/25 10:21) MA Intake Visit Data Collection New Patient or Established: Established Patient (seen at [facility] within 3 years) Seen by Clinical Staff ONLY (RN/MA): No Reason for Visit:: FOLLOW UP LAB RESULTS Pain Present Currently: No Bellmaker Required: No PCP or OBGYN visit in last 3 months: Yes Date of Last PCP or OBGYN visit: 01/16/25 Do You Feel Safe at Home: Yes Authorities Contacted: N/A Smoking Status Smoking Status: Never smoker Immunization / Flu Flu Vaccine in the Last 12 Months: Yes Flu Vaccine Exclusion Criteria: Already Received Past Medical History Past Medical History NEUROLOGIC: Negative Neurological Disorders or Seizures CARDIAC: Positive Cardiac Disorders, Peripheral Vascular Disease, Hypercholesterolemia and Hypertension; Negative Congestive Heart Failure RESPIRATORY: Negative Chronic Obstructive Pulmonary Disease (COPD) or Asthma GASTROINTESTINAL: Positive Gastrointestinal Disorders, Pancreatitis, Gall Bladder Disease and Gastroesophageal Reflux Disease GENITOURINARY: Positive Genitourinary Disorders and Kidney Stones; Negative Renal Disease MUSCULOSKELETAL: Positive Arthritis ENDOCRINE: Positive Endocrine Disorders and Diabetes Mellitus Type 2; Negative Diabetes Mellitus Type 1 HEMATOLOGIC: Negative Blood Disorders, Anemia, Sickle Cell Disease or Clotting Problems OTHER HISTORY: Positive Falls; Negative Hospitalization, Autoimmune Disease, Shingles, Blood Transfusions, Anesthesia Reactions, Chemotherapy, Radiation Therapy or MRSA Family History FAMILY HISTORY: Positive Family Cancer; Negative Family Psychiatric Problems, Family Respiratory Disorders, Family Cardiac Disorders, Family Gastrointestinal Problems, Family Surgery or Family Anesthesia Reaction Surgical History SURGICAL: Positive Abdominal Surgery, Joint Replacement and Amputation (Left Foot Great Toe) Social History SMOKING STATUS: Smoking status: Never smoker ALCOHOL: Alcohol Intake: Never HOUSING: Housing: House LIVES WITH: Lives With: Significant Other Patient Portal Carlos Social History Living Situation History Housing: House Housing Other:: Pt lives with significant other Tobacco History Smoking Status: Never smoker Alcohol History Alcohol Intake: Never Domestic Abuse History Do You Feel Safe at Home: Yes Review of Systems Report any current symptoms Only answer those that you have currently: Past Medical History Past Medical History Have you ever been diagnosed with any of the following: Neurological Problems Seizures: No Cardiology Problems Peripheral Vascular Disease: Yes Hypercholesterolemia: Yes Congestive Heart Failure: No Hypertension: Yes Respiratory Problems Chronic Obstructive Pulmonary Disease (COPD): No Asthma: No Stomache/Intestinal Problems Pancreatitis: Yes Gall Bladder Disease: Yes Gastroesophageal Reflux Disease: Yes Genital/Urinary Problems Renal Disease: No Kidney Stones: Yes Musculoskeletal Problems Arthritis: Yes Endocrine Problems Diabetes Mellitus Type 1: No Diabetes Mellitus Type 2: Yes Blood Problems Anemia: No Sickle Cell Disease: No Clotting Problems: No Other Problems Hospitalization: No Autoimmune Disease: No Shingles: No Falls: Yes Blood Transfusions: No Anesthesia Reactions: No Chemotherapy: No Radiation Therapy: No MRSA: No History of Present Illness HPI Narrative 59-year-old male with past medical history of hypertension, hyperlipidemia, CKD, DM 2, nephrolithiasis, and peripheral neuropathy [facility] to establish health care. Patient was recently discharged from the hospital on 12/16/2024 for hypertensive emergency. Patient's throat pressure was pretty elevated during hospital admission and his hospital stay was prolonged due to difficult to control blood pressure. Blood pressure today was 136/57. Patient does not complain of any headaches, visual deficits, or chest pain. Patient states that he has been taking all his medications as prescribed except for his levothyroxine that this medication has been causing him to get some palpitations. He also complains of diarrhea with some abdominal pain, but he states that the has been chronic since he got his cholecystectomy. Denies any nausea, vomiting, shortness of breath, but admits pain in his legs and his lower back which radiates to his right lower leg when he bends over. Otherwise patient has no new complaints patient recently got blood work therefore we will do for blood work for now except for CMP as he is currently on Lasix. Patient states that he needs a refill of lancets. 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 02/06/2025 Patient was seen in the clinic for follow-up. Patient reported that he is feeling palpitations along with lightheadedness and dizziness. He has been using Lantus 30 units in the morning and 46 units at night. He reported that he has been able to pee adequately. Labs from 01/27/2025 showed glucose 201, BUN 54, creatinine 2.9, GFR 24%, sodium 138, potassium 6.4, chloride 107, bicarb 18. Liver enzymes were unremarkable. Patient was advised to go immediately to the ER given that he is complaining of palpitations and dizziness along with hyperkalemia and worsening kidney functions seen from the recent labs. He was given prescription refill for Accu-Chek guide test strips since he was out of the test trips and does not know his blood sugars at home. Patient would need to follow-up after week follow management of the medications. Patient reported that he is able to go to the ER by himself by driving car and was sent immediately. Objective/Exam Narrative Physical exam: GENERAL APPEARANCE: AxOx4, generally well-appearing male feeling dizzy. HEENT: NC, AT. MMM. EOMI, clear conjunctiva, oropharynx clear. Blurred vision reported. NECK: Supple without lymphadenopathy. No stiffness or restricted ROM. HEART: Regular rate and regular rhythm, normal S1/S2, no m/r/g LUNGS: CTAB, moving air well. No crackles or wheezes are heard. ABDOMEN: Soft, nontender, nondistended with good bowel sounds heard. BACK: No CVAT, no obvious deformity. EXTREMITIES: Without cyanosis, clubbing or edema. NEUROLOGICAL: Grossly nonfocal. Alert and oriented, moving all 4 extremities. CN not formally tested but appear grossly intact. Observed to ambulate with normal gait. Skin: Warm and dry without any rash. Psych: Appropriate mood and affect Assessment & Plan Diagnosis / Problem List (1) CKD (chronic kidney disease): Status: Acute Qualifiers: Chronic kidney disease stage: stage 4 (GFR 15-29) Qualified Code(s): N18.4 - Chronic kidney disease, stage 4 (severe) Assessment & Plan: #ANGELA on CKD stage IV -Patient reported that he is feeling palpitations along with lightheadedness and dizziness. he is making adequate urine. -Labs from 01/27/2025 showed glucose 201, BUN 54, creatinine 2.9, GFR 24%, sodium 138, potassium 6.4, chloride 107, bicarb 18. Liver enzymes were unremarkable. 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 He ran out of his test trips and has not been checking his blood sugars at home. Plan: -He has been using Lantus 30 units in the morning and 46 units at night. -Patient was advised to go immediately to the ER given that he is complaining of palpitations and dizziness along with hyperkalemia and worsening kidney functions seen from the recent labs. (3) HTN (hypertension): Status: Acute Qualifiers: Hypertension type: unspecified Qualified Code(s): I10 - Essential (primary) hypertension Assessment & Plan: - Patient was complaining of blurred vision and lightheadedness. Vitals revealed blood pressure 100/52, heart rate 66, respiratory normal. Saturating well on room air. Plan: - Recommended to hold losartan due to hyperkalemia and stable blood pressure - Sent to the ER for stat labs and further management (4) Hyperkalemia: Status: Acute Assessment & Plan: - Patient was found to have potassium of 6.4 from 01/27/2025 with bicarb of 18. Plan: - Patient would need stat labs and immediate management for hyperkalemia with Kayexalate, insulin, calcium gluconate and amp of bicarb - ED doctor notified (5) Acute kidney injury: Status: Acute Assessment & Plan: - Patient has CKD stage III-IV and was found to have ANGELA on CKD. BUN 54 and creatinine 2.9 with baseline BUN 36 and creatinine 2.39 Plan: - Recommended to hold off Lasix and GAIL and ARB - Does not appear to be in fluid overload and would benefit with mild fluid resuscitation - Will need to avoid nephrotoxic agents and renal dosing - Sent to the ER for further management - Would benefit from nephrology consultation Patient was seen and discussed with attending physician, Dr.Watanakunakorn Dr. Mouna MD, PGY 3 Office Procedures [facility] Level of Care Nursing/Assessment Patient Status: Established Patient Nursing Assessment/Reassessment: Medication Reconciliation, Update PMH in EMR and Vital Signs Coordination of Care: Complex Care and Chronic Disease 1-5, Consent,records obtained, informed consent, 1 Ins Authorization, Lab and Imaging orders and Results/Orders obtained Established Patient Charge Established Patient Point Assignment: 95 Established Patient Point Charge: EP Level 3 (80-115)
== END 2025-02-06 10:59 | disposition home or self-care (01) ==
PROVIDERS: PCP Family Medicine; Referring Provider Family Medicine; Supervising Provider Internal Medicine; Visit Provider Student in an Organized Health Care Education/Training Program
DX: N17.9 Acute kidney failure, unspecified (principal); E11.22 Type 2 diabetes mellitus with diabetic chronic kidney disease; I12.9 Hypertensive chronic kidney disease with stage 1 through stage 4 chronic kidney disease, or unspecified chronic kidney disease; N18.4 Chronic kidney disease, stage 4 (severe); R00.2 Palpitations; R42 Dizziness and giddiness; E87.5 Hyperkalemia
CPT/HCPCS: 99213; G0463

== ENCOUNTER 2025-02-06 10:18 | Inpatient (IN) | payer MEDICARE, MEDICAID, SELFPAY ==
[2025-02-06] VITALS (12 sets, daily range): BP systolic 136–224; BP diastolic 68–96; PULSE 60–91; RESP 15–20; TEMP 35.9–37; O2SAT 95–100; BMI 21.9
--- NOTE | 2025-02-06 10:36 | EKG_ITS ---
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
--- NOTE | 2025-02-06 10:37 | XR_ITS ---
Examination: AP chest single view Technique one AP portable upright chest single view Date and time: February 06, 2025 1102 hours INDICATIONS: Shortness of breath today. FINDINGS: Normal heart size No pneumonia or pulmonary edema Mild elevation right hemidiaphragm IMPRESSION: No active disease.
--- NOTE | 2025-02-06 10:37 | PD.EDRME ---
Rapid Medical Screening Exam RME Arrival date/time: 02/06/25 10:18 CC: Mild intermittent dizziness with abnormal lab results HPI patient was referred to the emergency room via PCP for creatinine of 2.9 which is a progressive worsening when compared to blood work from previous admissions. The patient denies chest pain shortness of breath or difficulty breathing. Chief Complaint: Recheck/Abnormal Lab/Rx Time Seen by Provider: 02/06/25 10:25 Vital signs: Vital Signs Temperature 98.0 F 02/06/25 10:30 Pulse Rate 61 02/06/25 10:30 Respiratory Rate 16 02/06/25 10:30 Blood Pressure 167/79 H 02/06/25 10:30 Pulse Oximetry (%) 98 02/06/25 10:30
[2025-02-06 11:04] LABS: Lactate (Lactic Acid) 1.1 mMol/L (0.4-2.0)
[2025-02-06 11:10] LABS: Basophils # (Auto) 0.0 Thou/mm3 (0.0-0.2); Basophils % (Auto) 1 % (0-2.5); Eosinophils # (Auto) 0.1 Thou/mm3 (0.0-0.5); Eosinophils % (Auto) 3 % (0-10); Hematocrit 30.1 % (41.0-53.0); Hemoglobin 9.9 g/dL (13.5-16.0); Immature Granulocytes Auto 0.01 Thou/mm3 (0.00-0.00); Lymphocytes # (Auto) 0.9 Thou/mm3 (1.0-4.8); Lymphocytes % (Auto) 23 % (10-50); Mean Corpuscular HGB Conc 32.9 g/dl (31.0-37.0); Mean Corpuscular Hemoglobin 29.1 pg (25.0-35.0); Mean Corpuscular Volume 89 fL (80-100); Monocytes # (Auto) 0.2 Thou/mm3 (0.0-0.8); Monocytes % (Auto) 6 % (0-12); Neutrophils # (Auto) 2.8 Thou/mm3 (1.8-7.7); Neutrophils % (Auto) 68 % (37-80); Nucleated Red Blood Cell # 0.00 Thou/mm3 (0.00-0.00); Nucleated Red Blood Cell % 0 /100 WBC (0); Platelet Count 234 Thou/mm3 (140-440); RDW Standard Deviation 39.9 fL (35.1-43.9); Red Blood Count 3.40 Miln/mm3 (4.50-5.90); White Blood Count 4.1 Thou/mm3 (3.8-10.6)
[2025-02-06 11:23] LABS: INR 1.0 (0.9-1.3); Partial Thromboplastin Time 26.2 Seconds (22.0-36.0); Prothrombin Time 10.5 Seconds (9.0-12.2)
--- NOTE | 2025-02-06 11:26 | EDNOTE_ITS ---
<Statement entered by Rin Foreman MD - 02/06/25 14:58> I, Rin Foreman MD, have reviewed the history, exam, and assessment of the patient. I have evaluated the patient independently and agree with the plan of care documented by [ ]. All diagnostic studies were reviewed and discussed. I confirm the diagnosis as documented by the Resident. I was present during the Medical Decision Making for this patient. The patient's plan of care was created between myself and the Resident and consistent with our discussion of the patient's case. ED General RME/HPI General Chief complaint: Recheck/Abnormal Lab/Rx Stated complaint: 6.4 K+ Time Seen by Provider: 02/06/25 10:25 Arrival date/time: 02/06/25 10:18 RME / HPI RME / HPI narrative: 02/06/25 10:18 CC: Mild intermittent dizziness with abnormal lab results HPI patient was referred to the emergency room via PCP for creatinine of 2.9 which is a progressive worsening when compared to blood work from previous admissions. The patient denies chest pain shortness of breath or difficulty breathing. 59-year-old male with past medical history of hypertension, hyperlipidemia, CKD, DM 2, nephrolithiasis, and peripheral neuropathy comes into the hospital referred by his outpatient primary care physician due to abnormal labs. Per primary care physician patient's potassium was 6.4 and creatinine was 2.9 on 01/19/2025. Last labs on file on 12/16/2024 patient did have creatinine of 2 with a potassium of 4.4. Patient states he has also been having palpitations, and some sharp chest pain that lasts less than 10 seconds and is not constant and does not radiate anywhere. She states that the chest pain does not increase or worsen with exertion and that it can be just at rest as well. Also states he did feel dizzy, but denies any shortness of breath, abdominal pain, nausea, vomiting, changes in bowel movement, or decreased urination. Otherwise no other complaints at this time. Related Data Home Medications ?Medication ?Instructions ?Recorded ?Confirmed pravastatin 40 mg tablet 40 mg PO QDAY 12/21/1801/16 Previous Rx's ?Medication ?Instructions ?Recorded lancets (Accu-Chek Softclix #100 ea 12/07/23 Lancets) levothyroxine 25 mcg capsule 25 mcg PO ACBR #30 caps 0 12/07/23 pen needle, diabetic 29 gauge x #100 ea 12/07/23 1/ blood-glucose sensor (FreeStyle #2 ea 12/14/24 Huey 3 Plus Sensor device) blood-glucose,bucket turner,cont #1 ea 12/14/24 (FreeStyle Huey 3 [place]) empagliflozin 10 mg tablet 10 mg PO QAM #30 tabs 12/15 (Jardiance) furosemide 40 mg tablet (Lasix) 40 mg PO PRN PRN edema 30 days #30 12/15/24 tabs insulin glargine 100 unit/mL (3 30 unit (0.3 mL) subcu t .daily 30 12/15/24 mL) subcutaneous pen days #0 mL sitagliptin phosphate 50 mg tablet 50 mg PO QDAY #30 t abs 12/15/24 (Januvia) clonidine HCl 0.1 mg tablet 0.1 mg PO BID PRN hyperten sive 12/16/24 emergency #10 tabs losartan 50 mg tablet 50 mg PO QDAY #30 tabs 12/16 cholestyramine 4 gram oral powder 4 g PO TID #201.6 gr ams 01/16/25 gabapentin 400 mg capsule 400 mg PO TID 30 days #90 ca ps 01/16/25 lancets (Accu-Chek Softclix #100 ea 01/16/25 Lancets) blood sugar diagnostic (Accu-Chek #50 ea 02/06/25 Guide test strips) sodium polystyrene sulfonate 15 g PO QDAY PRN [place] #15 02/06/25 grams Allergies Allergy/AdvReac Type Severity Reaction Status Date / Time No Known Allergies Allergy Verified 02/06/25 10:21 Review of Systems Review of Systems Systems Reviewed: All systems reviewed, normal except as documented Past Medical History Past Medical History CARDIAC: Positive Cardiac Disorders, Peripheral Vascular Disease, Hypercholesterolemia and Hypertension GASTROINTESTINAL: Positive Gastrointestinal Disorders, Pancreatitis, Gall Bladder Disease and Gastroesophageal Reflux Disease GENITOURINARY: Positive Genitourinary Disorders and Kidney Stones MUSCULOSKELETAL: Positive Musculoskeletal Disorders and Arthritis ENDOCRINE: Positive Endocrine Disorders and Diabetes Mellitus Type 2 Family History FAMILY HISTORY: Positive Family Cancer Surgical History SURGICAL: Positive Abdominal Surgery, Joint Replacement and Amputation ED Exam Narrative Physical exam: Gen: A&O X 3, NAD HEENT: NCAT, EOMI, Pupils reactive RICK, not icteric. External ears normal. No rhinorrhea. Moist mucous membranes. Neck: Supple, full range of motion, no observable masses, No meningeal sign. Lungs: No Respiratory distress, clear bilateral. CV: RRR, no murmurs. Abdomen: Soft, nondistended, No rebound tenderness. MSK: No joint swelling, no redness, peripheral pulses presents, no peripheral edema Skin: No rashes, petechiae, lesions. Neuro: No focal neurological deficits appreciated, sensory and motor intact. Psych: Cooperative, appropriate mood and effect. Course Quality Measures none Orders Category Date Time Status COVID-19 Screening Questionnaire NOW Care 02/06/25 13:04 Active Educational Program Director Q4H START 00 Care 02/06/25 10:37 Active Continuous Pulse Oximetry NOW Care 02/06/25 10:37 Completed Decision to Admit X1 Care 02/06/25 13:04 Active EKG (ED ONLY) *Do not use* NOW Care 02/06/25 10:36 Completed Diet Carbohydrate Consistent Low Diet 02/06/25 Lunch Active CXRP [XR chest 1V portable] Stat Exams 02/06/25 10:37 Completed EKG (ED Only) Stat Exams 02/06/25 10:36 Draft B-Type Natriuretic Peptide Stat Lab 02/06/25 10:49 Completed CBC Stat Lab 02/06/25 10:49 Completed Comprehensive Metabolic Panel Stat Lab 02/06/25 10:49 Completed Drug Screen,Urine Stat Lab 02/06/25 12:18 Completed Lactic Acid [Lactate (Lactic Acid)] Stat Lab 02/06/25 10:49 Completed Lipase Stat Lab 02/06/25 10:49 Completed Magnesium Stat Lab 02/06/25 10:49 Completed Partial Thromboplastin Time Stat Lab 02/06/25 10:49 Completed Procalcitonin Stat Lab 02/06/25 10:49 Completed Prothrombin Time with INR Stat Lab 02/06/25 10:49 Completed Troponin I Stat Lab 02/06/25 10:49 Completed Urinalysis Stat Lab 02/06/25 12:18 Received Insulin Regular Med 02/06/25 12:04 Discontinued 5 unit IV X1 ONE hydrALAZINE INJ [Apresoline Inj] Med 02/06/25 12:14 Discontinued 10 mg IVP X1 ONE Late Tray Request Routine Oth 02/06/25 12:43 Active Vital Signs Vital signs: Vital Signs Temperature 98.0 F 02/06/25 10:30 Pulse Rate 61 02/06/25 10:30 Respiratory Rate 16 02/06/25 10:30 Blood Pressure 167/79 H 02/06/25 10:30 Pulse Oximetry (%) 98 02/06/25 10:30 Discharge Plan Plan Patient Disposition: Admit Acute Care w/in Hospital Prescriptions/Referrals Prescriptions/Med Rec: No Action cholestyramine 4 gram powder 4 g PO TID Qty: 201.6 0RF Rx Instructions: administer w/meal; avoid other meds within 1hr before or 4-6hr after dose gabapentin 400 mg capsule 400 mg PO TID 30 Days Qty: 90 1RF (DME) lancets [Accu-Chek Softclix Lancets] Misc See Rx Instructions .Route Qty: 100 0RF Rx Instructions: As directed (DME) Accu-Chek Guide test strips Strip See Rx Instructions .Route Qty: 50 3RF Rx Instructions: As directed sodium polystyrene sulfonate Powder 15 g PO QDAY PRN (Reason: Hyerkalemia) Qty: 15 0RF pravastatin 40 mg Tablet 40 mg PO QDAY levothyroxine 25 mcg capsule 25 mcg PO ACBR Qty: 30 2RF Rx Instructions: Take 1 capsule (25mcg) every morning, 2 hours before any food or other medications (DME) pen needle, diabetic 29 gauge x 1/2 needle See Rx Instructions .Route Qty: 100 0RF Rx Instructions: As directed (DME) lancets [Accu-Chek Softclix Lancets] Misc See Rx Instructions .Route Qty: 100 0RF Rx Instructions: As directed (DME) FreeStyle Huey 3 Plus Sensor Device See Rx Instructions .Route Qty: 2 3RF Rx Instructions: As directed (DME) FreeStyle Huey 3 [place] Misc See Rx Instructions .Route Qty: 1 0RF Rx Instructions: As directed Jardiance 10 mg tablet 10 mg PO QAM Qty: 30 3RF Januvia 50 mg tablet 50 mg PO QDAY Qty: 30 3RF furosemide [Lasix] 40 mg tablet 40 mg PO PRN PRN (Reason: edema) 30 Days Qty: 30 0RF Rx Instructions: take as needed for leg swelling or shortness of breath and weight gain more than 2 pounds in 1 day insulin glargine 100 unit/mL (3 mL) insulin pen 30 unit subcut .daily 30 Days Qty: 0 0RF Patient Comments: At night clonidine HCl 0.1 mg tablet 0.1 mg PO BID PRN (Reason: hypertensive emergency) Qty: 10 0RF Rx Instructions: take if SBP > 170 losartan 50 mg tablet 50 mg PO QDAY Qty: 30 0RF Referrals: Suzette Barrow PA-C [Primary Care Provider] - In 1 week Problem List Clinical Impression: Acute kidney injury superimposed on CKD, Hypertensive urgency Patient/Caregiver Discharge Instructions Print Language: Malagasy Stand Alone Forms: Kelsey Award Info., Patient Portal Info Letter MDM Narrative MDM hospital course: Patient was seen and assessed by myself upon arrival. Diagnostic imaging and labs were ordered. 12:15: Patient's blood work revealed mild hyperkalemia at 5.3, worsening kidney function with creatinine of 2.8, and hyperglycemia at 445. Patient's BP was also significantly elevated therefore gave hydralazine 10 IV x 1. 1:05: Spoke with IM team for admission. Will assess patient for admission. Case disclosed with Attending Dr. Ahsan Fregoso PGY2 Disclaimer: Even though this this note was dictated by speech recognition and even though it was carefully revised there may still be minor errors in supervisor dental laboratory due to voice recognition software. Medication Administration(s) Medication Administration History Discontinued Medications Hydralazine HCl (Hydralazine Inj 20 Mg/Ml Vial) 10 mg IVP X1 ONE Stop: 02/06/25 12:15 Last Admin: 02/06/25 12:29 Dose: 10 mg Documented By: RAMON Insulin Human Regular (Insulin Hum Regular 1 Unit/0.01 Ml (Per Unit)) 5 unit IV X1 ONE Stop: 02/06/25 12:05 Last Admin: 02/06/25 12:30 Dose: 5 unit Documented By: RAMON Co-signed By: SILVIA
[2025-02-06 11:39] LABS: B-Type Natriuretic Peptide 237 pg/mL (0-100)
[2025-02-06 11:53] LABS: Alanine Aminotransferase 8 U/L (10-49); Albumin, Serum 3.9 gm/dL (3.4-4.8); Albumin/Globulin Ratio 1.8 (1.2-2.2); Alkaline Phosphatase 94 U/L (46-116); Anion Gap 7 (7-16); Aspartate Amino Transferase 13 U/L (0-34); BUN/Creatinine Ratio 14 Ratio (12-20); Bilirubin,Total 0.3 mg/dL (0.3-1.2); Blood Urea Nitrogen 40 mg/dL (9-23); Calcium 8.9 mg/dL (8.3-10.6); Calcium (Corrected) 9.0 mg/dL (8.5-10.1); Carbon Dioxide 25.9 mMol/L (20.0-31.0); Chloride 105 mMol/L (98-107); Creatinine (Component) 2.8 mg/dL (0.6-1.3); Estimated Creatinine Clearance 24.2 mL/min (>60); Globulin 2.2 gm/dL (2.3-3.5); Lipase 37 U/L (12-53); Magnesium 1.8 mg/dL (1.6-2.6); Osmolality,Calculated 304 (275-295); Potassium 5.3 mMol/L (3.4-5.1); Procalcitonin 0.10 ng/ml (0.0-0.49); Sodium 138 mMol/L (136-145); Total Protein 6.1 gm/dL (5.7-8.2); Troponin I < 0.020 ng/mL (0.0-0.045); eGFR 25 See Note
[2025-02-06 11:55] LABS: Glucose 445 mg/dL (74-106)
[2025-02-06] MEDS: hydrALAZINE INJ 20 MG/ML VIAL 10 MG IVP ×2 (12:29→17:13)
[2025-02-06 12:30] LABS: Collection Type, Urine Clean Catch; Squamous Epithelial Cell,Urine 0 /hpf (0-5)
[2025-02-06] MEDS: INSULIN HUM REGULAR 1 UNIT/0.01 ML (PER UNIT) 5 UNIT IV (12:30)
[2025-02-06 12:44] LABS: Amphetamine/Methamp Scrn,U Negative (Negative); Barbiturate Screen,Urine Negative (Negative); Benzodiazepines Screen,Urine Negative (Negative); Benzoylecgonine Screen, Ur Negative (Negative); Fentanyl Screen,Urine Negative (Negative); Opiate Screen,Urine Negative (Negative); THC Screen,Urine Negative (Negative)
[2025-02-06 12:53] LABS: Bilirubin,Urine Negative (Negative); Blood,Urine Negative (Negative); Clarity,Urine Clear (Clear/Hazy); Color,Urine Lt-Yellow (Lt Yel-Yel); Glucose, Urine 4+ (Negative); Ketones,Urine Negative (Negative); Leukocyte Esterase,Urine Negative (Negative); Nitrite,Urine Negative (Negative); PH,Urine 6.0 (5.0-7.0); Protein,Urine 2+ (Neg - Trace); RBC,Urine 6 /hpf (0-3); Specific Gravity,Urine 1.010 (1.001-1.035); Urobilinogen,Urine Negative mg/dL (0.0-1.0); WBC,Urine 3 /hpf (0-5)
--- NOTE | 2025-02-06 13:59 | ESHP_ITS ---
<Statement entered by Lea Payton MD - 02/06/25 19:45> I have reviewed the note and agree with the resident's assessment & plan with exceptions as below. I have personally reviewed labs, imaging, home meds/prior records, examined the patient, formulated and discussed management plan with the IM team. #Acute kidney injury on CKD stage IIIb DDx: Prerenal versus ATN versus obstructive Creatinine change from baseline up to 0.8 Plan: ? Nephrology consulted, appreciate recs ? NS 75 cc/hr ? Renal US ? Avoid nephrotoxic agents ? Renally dose medicines ? Renal panel at 7 PM ? Urine lytes, creatinine, urea #Hyperkalemia K+ 5.3 in ED, given Insulin 5 units Plan: ? Renal panel 7pm #Hypertensive emergency Plan: ? Do not correct systolic blood pressure more than 25% within the first 24 hours ? Hydralazine 10 mg IV every 6 hours as needed for SBP above 180 #Insulin Dependent Type II Diabetes mellitus A1c 10.5 in December 2024 Plan: ? Lantus 23 units at night, 15 units in the morning ? Sliding scale insulin ? Hypoglycemic protocol in place ? Blood sugar checks with meals Lea Payton, PGY-2 Internal Medicine Documentation for date of: 02/06/25 HPI History of Present Illness Chief complaint: dizziness; hypertensive emergency History of present illness: Vahe Marshall is a 59 year old swiss speaking male with past medical history of HTN, CKD, T2DM, HLD, peripheral neuropathy, HLD presented from to the ED after feeling dizzy, blurry vision, endorsing transient non-radiating palpitations at rest and found to have ANGELA on CKD with BUN 54 and Cr 2.9, Potassium of 6.4 from labs done 12/27/2024 after meeting with and sent from his PCP today, Danial from [facility]. Patient currently states that he still feels dizzy, but does not have any visual deficits anymore and does not have any chest pain. Patient states that he has been able to make urine, currently feels the need to go. Patient denies ever having hemodialysis. Patient also some epigastric pain, endorses 10 pound weight loss since December, constipation, occasional urinary retention. Patient endorses nerve pain throughout his upper and lower extremities. Patient denies fever, headache, vision changes, dyspnea, chest pain, palpitations, blood in stool/urine. Past Medical History: above Family History: Pt reported no fam hx related to heart disease or kidney disease Surgical History: Appendectomy, cholecystectomy Social History: Denies history of smoking. Endorses occasional alcohol use; denies recreational drug use Current Medications: (pending med rec), Patient denied taking nsaids. Patient doesn't know the names of medications, but states he takes medication for his HTN, T2DM, and neuropathy. Allergies: No known drug allergies ED Course: -Initial vitals showed initial blood pressure came in at 100/52, but notably spiked to 224/96, patient's temperature was 97.6 ?F, pulse rate of 66, respiratory rate of 19, pulse ox of 97% on room air. -Patient's labs were significant for hemoglobin of 9.9, potassium of 5.3, BUN 40, creatinine 2.8, EGFR 25, Kos 445, calculated osmolality 304, BNP 237, Pro- Huber 0.10, lactic acid 1.1. Urinalysis significant for 2+ protein, 4+ glucose, 6 RBCs. -Imaging included Chest x-ray showed mild elevation right hemidiaphragm, no active disease. EKG showed sinus bradycardia with sinus arrhythmia. -In the ED, patient was given hydralazine 10 mg x1 and 5 units Insulin x1. -Patient was admitted for hypertensive emergency with ANGELA on CKD. Review of Systems Review of systems otherwise negative except what is mentioned above. Exam Vital Signs Temp Pulse Resp BP Pulse Ox O2 Del Method 98.6 F 65 16 151/74 H 99 Room Air 02/06/25 12:13 02/06/25 13:00 02/06/25 13:00 02/06/25 13:00 02/06/25 13:02/06/25 13:00 Narrative Exam General: No acute distress; A&Ox3 Skin: Warm, dry, intact, no obvious rash. HENT: NCAT, EOMI, not icteric. External ears normal. No rhinorrhea. Moist mucous membranes Cardiovascular: Regular rate and rhythm, no murmur, +S1/S2. Respiratory: Lungs CTAB GI: Mild epigastric tenderness; rest of abdomen soft, nontender, non-distended. No guarding or rebound tenderness. Extremities: trace LE edema, no cyanosis, no clubbing. Extremity pulses present Neuro: No focal deficits observed. Conversant, moving all extremities. No overt cerebellar signs/incoordination. Psychiatric: Cooperative, appropriate affect. Results: Labs 02/07/25 04:20 02/07/25 04:20 Labs: Short CBC 02/06/25 Range/Units 10:49 WBC 4.1 (3.8-10.6) Thou/mm3 Hgb 9.9 L (13.5-16.0) g/dL Hct 30.1 L (41.0-53.0) % Plt Count 234 (140-440) Thou/mm3 BMP 02/06/25 10:49 Sodium 138 Potassium 5.3 H Chloride 105 Carbon Dioxide 25.9 BUN 40 H Creatinine 2.8 H Glucose 445 H* Calcium 8.9 Cardiac Enzymes 02/06/25 Range/Units 10:49 Troponin I < 0.020 (0.0-0.045) ng/mL Liver Function 02/06/25 Range/Units 10:49 Total Bilirubin 0.3 (0.3-1.2) mg/dL AST 13 (0-34) U/L ALT 8 L (10-49) U/L Alkaline Phosphatase 94 (46-116) U/L Albumin 3.9 (3.4-4.8) gm/dL Urine 02/06/25 Range/Units 12:18 Urine Color Lt-Yellow (Lt Yel-Yel) Urine Clarity Clear (Clear/Hazy) Urine pH 6.0 (5.0-7.0) Ur Specific [place] 1.010 (1.001-1.035) Urine Protein 2+ A (Neg - Trace) Urine Glucose (UA) 4+ A (Negative) Quality Measures Quality Measures VTE prophylaxis Medications Home Medications and Allergies Home Medications ?Medication ?Instructions ?Recorded ?Confirmed ?Type pravastatin 40 mg tablet 40 mg PO QDAY 12/21/1801/16 History Allergies Allergy/AdvReac Type Severity Reaction Status Date / Time No Known Allergies Allergy Verified 02/06/25 10:21 Visit Medications Discontinued Medications Hydralazine HCl (Hydralazine Inj 20 Mg/Ml Vial) 10 mg IVP X1 ONE Stop: 02/06/25 12:15 Last Admin: 02/06/25 12:29 Dose: 10 mg Insulin Human Regular (Insulin Hum Regular 1 Unit/0.01 Ml (Per Unit)) 5 unit IV X1 ONE Stop: 02/06/25 12:05 Last Admin: 02/06/25 12:30 Dose: 5 unit Assessment & Plan Plan Vahe Marshall is a 59 year old swiss speaking male with past medical history of HTN, CKD, T2DM, HLD, peripheral neuropathy, HLD presented from to the ED after feeling dizzy, blurry vision, endorsing transient non-radiating palpitations at rest and found to have hypertensive emergency. Patient admitted for ANGELA on CKD. #ANGELA on CKD #hyperkalemia Suspect pre-renal etiology secondary to hypertensive emergency vs possible intra-renal ischemic ATN due to htn emergency vs possible post-renal obstructive etiology. Patient states he is making urine. Patient's Potassium of 6.4 from 12/27 outpatient labs. Potassium on admission 5.3, was given 5 units insulin units x1. Cr 2.8 on admission (baseline Cr closer to ~2.0). No fluids given in ED. -Ordered maintenance fluids 1 bag NS @75 mls/hr. -f/u repeat Cr 7pm tonight -Nephrology consulted -consider kayexalate if potassium furthur elevates on 7pm renal panel -Strict I/Os, monitor UOP -f/u urine sodium/creatinine/urea/protein/microalbumin -Hold any GAIL/ARB/diuretics #HTN emergency In ED, BP went to 224/96, was given hydralazine 10 mg IV x1. Patient has history of hypertension, states he is on htn medicine, pending med rec. BP on admission improved to 136/68. -Continue to monitor -Will restart appropriate htn meds pending med rec. #T2DM Glucose on admission was 445 Given 5 units insulin x1 with improvement on bedside glucose to 186. Most recent A1c 10.5 from 12/12/2024 -A1c ordered, f/u -Started Glargine 23 units sc hs -Started Glargine 15 units sc q am -Started Lispro SSI sc ac -Continue to monitor #neuropathy, likely due to t2dm Patient states he has nerve pain throughout his upper and lower extremities. -will continue neuro pain med pending med rec #HLD Patient has hx of hyperlipidemia -pending med rec -ordered lipid panel #hypothyroidism? -pending med rec -follow up tsh Hospital Management: Disposition: Tele Diet: Carb Consistent Low GI Prophylaxis: Protonix 40 mg qd Bowel Prophylaxis: Dulcolax prn DVT Prophylaxis: Heparin CODE STATUS: Full Code Patient plan of care was discussed with the attending physician, Dr. Garg & senior resident Dr. Tata Magana MD PGY-1 Attending Provider Attestation/Addendum I have discussed and was present for the essential components of the history, physical examination, diagnosis, and treatment plan with the resident. I agree with the patient's care as documented by the resident and amended herein by me. Davon Garg DO. Although this document has been carefully reviewed, there may still be some phonetic and other typographical errors. These errors are purely grammatical due to imperfections in the software program and should not be construed in any way to compromise the substance of the patient's medical care during this visit.
--- NOTE | 2025-02-06 14:14 | ESCONSULT_ITS ---
HPI Data of Consult Consult date: 02/06/25 Requesting Physician: Rom Garg DO Admitting Provider: Rom Garg DO Attending Provider: Rom Garg DO Primary Care Provider: Suzette Barrow PA-C Consult Narrative Reason for consult: ANGELA History of present illness: Mr. Marshall is a 59-year-old Sammarinese speaking gentleman with PMH of hypertension, hyperlipidemia, CKD IV, insulin dependent- T2DM (A1c 12/2024 10.5) , nephrolithiasis, and peripheral neuropathy who presented to the ED after being seen by his outpatient PCP for abnormal lab values. Pt has labs drawn 01/27 in hand which show, K 6.4, Cr 2.9. Patient states that had been having some palpitations, and non radiating chest pain, that is not associated with exertion. He endorses intermittent dizziness over the past few days in the morning, but is not currently feeling dizzy. He reports that he does take his medications regularly, however he did not take his medications this morning. ROS pt endorses chest pain, epigastric tenderness, pt denies shortness of breath, nausea, vomiting ,dysuria Surgical hx - Positive Abdominal Surgery (cholecystectomy and appendectomy), Joint Replacement and big toe amputation ED course ED vitals Afebrile, HR 65, BP 151/74, RR 16 satting 99% on RA, finger glucos 300s Dx * CBC normocytic anemia, CMP K 5.4, Cr. 2.8 BUN 40. BNP 237, procalcitonin wnl, troponin wnl, Glucose 445, * UA with 2+ protein and 4+ glucose, Utox neg. * CXR no active disease * EKG sinus bradycardia Tx * Hydral 10 mg IV x1 * Insulin 5 U 1x 02/06/2025: Nephrology consulted for ANGELA on CKD IV. Cr. 2.8 unclear what is his baseline ~2.0?, eGFR 25, pt makes urine. denies any current chest pain, dizziness, or shortness of breath. appears euvolemic, lungs are clear to auscultation bilaterally, BLE with trace edema. cc:: cc: Rom Garg DO Review of Systems Review of Systems Narrative Review of Systems: as per HPI Exam Vital Signs Temp Pulse Resp BP Pulse Ox O2 Del Method 98.6 F 65 16 151/74 H 99 Room Air 08/07/25 12:13 02/06/25 13:00 02/06/25 13:00 02/06/25 13:00 02/06/25 13:00 02/06/25 13:00 Narrative Exam GENERAL: rwandan speaking patient in no acute distress, AAO x3, sitting upright laying in bed HEENT: Head AT/ NC. Mucous membranes moist. PERRL. NECK: Supple, no lymphadenopathy, no carotid bruits. CARDIOVASCULAR: bradycardic, regular rhythm. Normal S1/S2, No m/r/g. No pitting edema of bilateral LEs. RESPIRATORY: CTAB. No wheezing, rhonchi, crackles. GASTROINTESTINAL: Abdomen soft, no palpable masses, mild epigastric tenderness non distended .no rebound and guarding, Bowel sounds present MUSCULOSKELETAL:? No cyanosis or edema, no visible joint swelling. (shoes on during exam, did not examine feet) ?toe amputation NEUROLOGICAL: CN II-XII grossly intact. No focal deficits. Sensation intact, symmetric. PSYCHIATRIC: Awake and alert, not agitated, normal mood and affect. SKIN: No obvious rashes, no jaundice, normal turgor. Results Labs 02/06/25 10:49 02/06/25 19:31 Labs: Short CBC 02/06/25 Range/Units 10:49 WBC 4.1 (3.8-10.6) Thou/mm3 Hgb 9.9 L (13.5-16.0) g/dL Hct 30.1 L (41.0-53.0) % Plt Count 234 (140-440) Thou/mm3 BMP 02/06/25 10:49 Sodium 138 Potassium 5.3 H Chloride 105 Carbon Dioxide 25.9 BUN 40 H Creatinine 2.8 H Glucose 445 H* Calcium 8.9 Cardiac Enzymes 02/06/25 Range/Units 10:49 Troponin I < 0.020 (0.0-0.045) ng/mL Liver Function 02/06/25 Range/Units 10:49 Total Bilirubin 0.3 (0.3-1.2) mg/dL AST 13 (0-34) U/L ALT 8 L (10-49) U/L Alkaline Phosphatase 94 (46-116) U/L Albumin 3.9 (3.4-4.8) gm/dL Urine 02/06/25 Range/Units 12:18 Urine Color Lt-Yellow (Lt Yel-Yel) Urine Clarity Clear (Clear/Hazy) Urine pH 6.0 (5.0-7.0) Ur Specific [place] 1.010 (1.001-1.035) Urine Protein 2+ A (Neg - Trace) Urine Glucose (UA) 4+ A (Negative) Quality Measures Quality Measures none Medications Home Medications and Allergies Home Medications ?Medication ?Instructions ?Recorded ?Confirmed ?Type pravastatin 40 mg tablet 40 mg PO QDAY 12/21/1801/16 History Allergies Allergy/AdvReac Type Severity Reaction Status Date / Time No Known Allergies Allergy Verified 02/06/25 10:21 Visit Medications Discontinued Medications Hydralazine HCl (Hydralazine Inj 20 Mg/Ml Vial) 10 mg IVP X1 ONE Stop: 02/06/25 12:15 Last Admin: 02/06/25 12:29 Dose: 10 mg Insulin Human Regular (Insulin Hum Regular 1 Unit/0.01 Ml (Per Unit)) 5 unit IV X1 ONE Stop: 02/06/25 12:05 Last Admin: 02/06/25 12:30 Dose: 5 unit Assessment & Plan Plan Mr. Marshall is a 59-year-old Sammarinese speaking gentleman with PMH of hypertension, hyperlipidemia, CKD IV, poorly controlled insulin dependent- T2DM (A1c 12/2024 10.5) , hx of nephrolithiasis, and peripheral neuropathy who presented to the ED after being seen by his outpatient PCP with abnormal labs with K 6.4, and Cr 2.9, non radiating chest pain, trop negative, ekg sinus bradycardia- asymptomatic, no peaked T waves . #ANGELA on CKD IV #Query hypertensive nephrosclerosis #Query Diabetic nephropathy 12/2024: Renal ultrasound shows: Moderate bilateral renal parenchymal scarring, Left kidney shows cortical thinning Baseline: Cr between 2-3 Cr 2.8 on admission eGFR 25 consider pre, vs intra vs post renal etiolgies BUN/Cr ratio: 14.5, unlikely prerenal UA w 2+ protein and 4 + glucose Plan: - Daily CMP - f/u spot urine protein, urine Cr ratio - renal US 02/06/25 with Bilateral renal cortical thinning, Mild bilateral renal parenchymal scar formation , No hydronephrosis - gentle IV fluids - Avoid nephrotoxic medications - renally dose medications - strict I and O #Hyperkalemia lab work done outpatient showed K 6.4 CMP today shows slightly elevated in K 5.4, BUN 40 from 20 EKG with sinus bradycardia, no peaked t waves Plan: -CTM - f/u PM renal panel - 1x insulin 5 in the ED -if EKG changes, recommend calcium gluc, insulin, albuterol. - give K exalate #Hyperglycemia #T2DM on Insulin - poorly controlled A1c 10.3 12/2024 pt reports being out of home test strips, Serum Glucose 445 Home Regimen - 30 units Long acting in the AM - 46 units long acting in the PM Plan - Management per primary team - 1x insulin 5 mg given in the ED #Dizziness pt reports feeling dizzy/light headed, he states that he experiences this when he goes from sitting to standing, query orthostatic hypotension. - rec orthostatic vitals #Hypertensive urgency #chronic HTN - hold losartan in setting of #hyperkalemia see above SB 175 managment per primary team, on previous admission pt required labetalol 10 and nifedipine 60 #BLE edema - hold home furosemide 40 mg PO #HFpEF [55-60%]- BNP 237. #Kidney stones History of kidney stones, per patient, kidney stone were removed by surgery in 2019. #Bradycardia, asymptomatic #BLE Neuropathy #HLD #Hypothyroidism #Normocytic Anemia - Managment per primary team Thank you for allowing us to participate in the care of this patient Plan discussed with nephrology attending Dr. Arleen Jaquez MD Internal Medicine PGY-1 Attending Provider Attestation/Addendum Patient seen and examined with resident physician Dr. Jaquez. Note reviewed, agree with findings and recommendations. Patient well-known to me from recent admission for ANGELA on CKD. Agree with gentle IV fluids. Will monitor renal function closely. Underlying CKD from a poorly controlled hypertension and diabetes for many years. Thank you Davon for allowing me to participate in the care of Mr. Marshall
[2025-02-06] MEDS: SODIUM CHLORIDE 0.9% 1000 ML 1,000 ML 75 ML IV (15:11)
[2025-02-06 15:36] LABS: Creatinine,Random Urine 63 mg/dL (30-125); Sodium,Urine Random 57.1 mMol/L (20.0-110.0); Urea Nitrogen, Random Urine 469.0 mg/dL (350.0-1000.0)
--- NOTE | 2025-02-06 16:23 | XR_ITS ---
Examination: Retroperitoneal ultrasound, complete Technique: Multiple high resolution grayscale images of the retroperitoneum obtained, including kidneys and bladder. Exam date and time:February 06, 2025 1631 hours Comparison December 12, 2024 INDICATIONS: Chronic kidney disease diagnosis years, acute renal insufficiency diagnosis this week. FINDINGS: Right kidney 11.0 cm cortex 1.4 cm Left kidney 10.3 cm cortex 1.6 cm Mild renal parenchymal scar formation No bladder mass or bladder calculi. Bladder prevoid volume 210 cc postvoid volume 20 cc Prostate 4.1 x 2.8 x 5.2 cm volume 31.5 cc no prostate nodules IMPRESSION: Bilateral renal cortical thinning Mild bilateral renal parenchymal scar formation No hydronephrosis
[2025-02-06 16:38] LABS: Misc Send Out* See Sep Rpt
--- NOTE | 2025-02-06 17:02 | PC.NURSE ---
Report from [facility] ED Rn. Pt. is in stable condition. No acute distress. AOX4
[2025-02-06] MEDS: INSULIN LISPRO (AdmeLOG) 1 UNIT/0.01 ML UNIT SC (17:13)
[2025-02-06 18:31] LABS: Creatinine MALB Rnd Ur 62 mg/dL (30-125); Microalbumin Creat Ratio 613 mg/gCrea (<30); Microalbumin, Random Urine > 380 mg/L (0-300); Protein Total, Random Urine 168 mg/dL (1-14)
[2025-02-06 19:58] LABS: Albumin, Serum 3.8 gm/dL (3.4-4.8); Anion Gap 8 (7-16); BUN/Creatinine Ratio 18 Ratio (12-20); Blood Urea Nitrogen 44 mg/dL (9-23); Calcium 8.9 mg/dL (8.3-10.6); Calcium (Corrected) 9.1 mg/dL (8.5-10.1); Carbon Dioxide 25.6 mMol/L (20.0-31.0); Chloride 107 mMol/L (98-107); Creatinine (Component) 2.4 mg/dL (0.6-1.3); Estimated Creatinine Clearance 28.2 mL/min (>60); Glucose 274 mg/dL (74-106); Osmolality,Calculated 302 (275-295); Phosphorous 2.6 mg/dL (2.4-5.1); Potassium 4.8 mMol/L (3.4-5.1); Sodium 141 mMol/L (136-145); eGFR 30 See Note
[2025-02-06] MEDS: INSULIN GLARGINE (Lantus) 5 UNIT/0.05 ML (PER 5 UNITS) 23 UNIT SC (20:55)
[2025-02-06] MEDS: HEPARIN SOD INJ 5000 UNIT/ML VIAL SC (20:55)
[2025-02-07] VITALS (12 sets, daily range): BP systolic 144–206; BP diastolic 69–96; PULSE 61–86; RESP 12–16; TEMP 36–36.4; O2SAT 98–99; BMI 21.7
[2025-02-07] MEDS: SODIUM CHLORIDE 0.9% 1000 ML 1,000 ML 75 ML IV (03:31)
[2025-02-07 05:56] LABS: Basophils # (Auto) 0.0 Thou/mm3 (0.0-0.2); Basophils % (Auto) 1 % (0-2.5); Eosinophils # (Auto) 0.1 Thou/mm3 (0.0-0.5); Eosinophils % (Auto) 2 % (0-10); Hematocrit 27.8 % (41.0-53.0); Hemoglobin 9.2 g/dL (13.5-16.0); Immature Granulocytes Auto 0.01 Thou/mm3 (0.00-0.00); Lymphocytes # (Auto) 1.3 Thou/mm3 (1.0-4.8); Lymphocytes % (Auto) 26 % (10-50); Mean Corpuscular HGB Conc 33.1 g/dl (31.0-37.0); Mean Corpuscular Hemoglobin 29.2 pg (25.0-35.0); Mean Corpuscular Volume 88 fL (80-100); Monocytes # (Auto) 0.4 Thou/mm3 (0.0-0.8); Monocytes % (Auto) 7 % (0-12); Neutrophils # (Auto) 3.3 Thou/mm3 (1.8-7.7); Neutrophils % (Auto) 64 % (37-80); Nucleated Red Blood Cell # 0.00 Thou/mm3 (0.00-0.00); Nucleated Red Blood Cell % 0 /100 WBC (0); Platelet Count 227 Thou/mm3 (140-440); RDW Standard Deviation 40.2 fL (35.1-43.9); Red Blood Count 3.15 Miln/mm3 (4.50-5.90); White Blood Count 5.2 Thou/mm3 (3.8-10.6)
[2025-02-07 06:13] LABS: INR 1.0 (0.9-1.3); Partial Thromboplastin Time 26.5 Seconds (22.0-36.0); Prothrombin Time 10.9 Seconds (9.0-12.2)
[2025-02-07 06:15] LABS: Glucose Estimated Average 246 mg/dL (80-131); Hemoglobin A1C 10.2 % Hgb (4.8-6.0)
[2025-02-07 06:38] LABS: Alanine Aminotransferase < 7 U/L (10-49); Albumin, Serum 3.4 gm/dL (3.4-4.8); Albumin/Globulin Ratio 1.8 (1.2-2.2); Alkaline Phosphatase 82 U/L (46-116); Anion Gap 9 (7-16); Aspartate Amino Transferase 11 U/L (0-34); BUN/Creatinine Ratio 18 Ratio (12-20); Bilirubin,Total 0.3 mg/dL (0.3-1.2); Blood Urea Nitrogen 44 mg/dL (9-23); Calcium 8.4 mg/dL (8.3-10.6); Calcium (Corrected) 8.9 mg/dL (8.5-10.1); Carbon Dioxide 25.0 mMol/L (20.0-31.0); Cardiac Risk Estimate 6.2 RATIO (4.0-6.7); Chloride 110 mMol/L (98-107); Cholesterol 205 mg/dL (132-200); Creatinine (Component) 2.4 mg/dL (0.6-1.3); Estimated Creatinine Clearance 27.9 mL/min (>60); Globulin 1.9 gm/dL (2.3-3.5); Glucose 105 mg/dL (74-106); HDL Cholesterol 33 mg/dL (40-60); LDL Cholesterol,Calculated 149 mg/dL (0-130); Magnesium 2.1 mg/dL (1.6-2.6); Osmolality,Calculated 298 (275-295); Phosphorous 3.0 mg/dL (2.4-5.1); Potassium 4.6 mMol/L (3.4-5.1); Sodium 144 mMol/L (136-145); Thyroid Stimulating Hormone 5.01 uIU/mL (0.55-4.78); Total Protein 5.3 gm/dL (5.7-8.2); Triglycerides 113 mg/dL (30-150); eGFR 30 See Note
[2025-02-07 08:30] LABS: Free T4 (Free Thyroxine) 1.05 ng/dL (0.89-1.76)
[2025-02-07] MEDS: PANTOPRAZOLE 40 MG TABLET PO (08:48)
[2025-02-07] MEDS: HEPARIN SOD INJ 5000 UNIT/ML VIAL SC ×2 (08:48→21:17)
--- NOTE | 2025-02-07 09:35 | PC.NURSE ---
instructed pt. for to bring meds from home for med rec,stated okay.
--- NOTE | 2025-02-07 10:18 | PC.SS ---
Patient Vahe Marshall is a 59 Year old male admitted for ANGELA. SS met with patient to discuss discharge plan and verify demographic information. He reports he lives at home with his . Patient reports his , Andreina Wang is his surrogate decision maker, [phone]. Patient does not utilize any source of DME, patient is able to complete all ADL's independently. Choice of pharmacy is [facility]. PCP is Suzette Barrow. At time of discharge patient will discharge home, family will provide transportation. Next of kin: , Andreina Jarquin Discharge plan: Home
--- NOTE | 2025-02-07 10:19 | ESPR_ITS ---
Documentation for date of: 02/07/25 Subjective Subjective Interval history: Mr. Marshall is a 59-year-old Micronesian speaking gentleman with PMH of hypertension, hyperlipidemia, CKD IV, insulin dependent- T2DM (A1c 12/2024 10.5) , nephrolithiasis, and peripheral neuropathy who presented to the ED after being seen by his outpatient PCP for abnormal lab values. Pt has labs drawn 01/27 in hand which show, K 6.4, Cr 2.9. Patient states that had been having some palpitations, and non radiating chest pain, that is not associated with exertion. He endorses intermittent dizziness over the past few days in the morning, but is not currently feeling dizzy. 02/06/2025: Nephrology consulted for ANGELA on CKD IV. Cr. 2.8 unclear what is his baseline ~2.0?, eGFR 25, pt makes urine. denies any current chest pain, dizziness, or shortness of breath. appears euvolemic, lungs are clear to auscultation bilaterally, BLE with trace edema. 02/07/2025: Pt seen and examined at bedside. K wnl, Cr. 2.4 from 2.8, pt denies chest pain, dizziness, shortness of breath. Euvolemic on exam, lungs CTAB and BLE w/o edema. plan for d/c today and f/u outpatient with Dr. Bacon. Exam Vital Signs Temp Pulse Resp BP Pulse Ox O2 Del Method 97.3 F 78 12 158/69 H 99 Room Air 02/07/25 08:00 02/07/25 08:00 02/07/25 08:00 02/07/25 08:00 02/07/25 08:00 02/07/25 08:00 Narrative Exam GENERAL: croatian speaking patient in no acute distress, AAO x3, sitting upright laying in bed HEENT: Head AT/ NC. Mucous membranes moist. PERRL. NECK: Supple, no lymphadenopathy, no carotid bruits. CARDIOVASCULAR: bradycardic, regular rhythm. Normal S1/S2, No m/r/g. No pitting edema of bilateral LEs. RESPIRATORY: CTAB. No wheezing, rhonchi, crackles. GASTROINTESTINAL: Abdomen soft, no palpable masses, mild epigastric tenderness non distended .no rebound and guarding, Bowel sounds present MUSCULOSKELETAL:? No cyanosis or edema, no visible joint swelling. NEUROLOGICAL: CN II-XII grossly intact. No focal deficits. Sensation intact, symmetric. PSYCHIATRIC: Awake and alert, not agitated, normal mood and affect. SKIN: No obvious rashes, no jaundice, normal turgor. Objective Labs 02/08/25 05:28 02/08/25 05:28 Labs: Laboratory Results - last 24 hr 02/06/25 02/06/25 02/06/25 10:49 12:15 12:18 WBC 4.1 RBC 3.40 L Hgb 9.9 L Hct 30.1 L MCV 89 MCH 29.1 MCHC 32.9 RDW Std Deviation 39.9 Plt Count 234 Neut % (Auto) 68 Lymph % (Auto) 23 [place] % (Auto) 6 Eos % (Auto) 3 Baso % (Auto) 1 Neut # (Auto) 2.8 Lymph # (Auto) 0.9 L [place] # (Auto) 0.2 Eos # (Auto) 0.1 Baso # (Auto) 0.0 Immature Gran # (Auto) 0.01 H Absolute Nucleated RBC 0.00 Immature Gran % 0 Nucleated RBC % 0 PT 10.5 INR 1.0 APTT 26.2 Sodium 138 Potassium 5.3 H Chloride 105 Carbon Dioxide 25.9 Anion Gap 7 BUN 40 H Creatinine 2.8 H Estim Creat Clear Calc 24.2 L eGFR 25 L BUN/Creatinine Ratio 14 Glucose 445 H* Estimated Ave Glu mg/dL Hemoglobin A1c Calculated Osmolality 304 H Lactic Acid 1.1 Calcium 8.9 Corrected Calcium 9.0 Phosphorus Magnesium 1.8 Total Bilirubin 0.3 AST 13 ALT 8 L Alkaline Phosphatase 94 Troponin I < 0.020 B-Natriuretic Peptide 237 H Total Protein 6.1 Albumin 3.9 Globulin 2.2 L Albumin/Globulin Ratio 1.8 Triglycerides Cholesterol LDL Cholesterol, Calc HDL Cholesterol Cholesterol/HDL Ratio Lipase 37 Procalcitonin 0.10 TSH Free T4 Ur Collection Type Clean Catch Urine Color Lt-Yellow Urine Clarity Clear Urine pH 6.0 Ur Specific [place] 1.010 Urine Protein 2+ A Urine Glucose (UA) 4+ A Urine Ketones Negative Urine Blood Negative Urine Nitrite Negative Urine Bilirubin Negative Urine Urobilinogen (Auto) Negative Ur Leukocyte Esterase Negative Urine RBC 6 H Urine WBC 3 Ur Squamous Epith Cells 0 Urine Bacteria None Ur Random Creatinine 63 Ur Random Microalbumin > 380 H U Random Total Protein 168 H Ur Random Sodium 57.1 Ur Random Urea Nitrogn 469.0 U Creat (Microalbumin) 62 Microalb/Creat Ratio 613 H Urine Opiates Screen Negative Urine Fentanyl Screen Negative Ur Barbiturates Screen Negative U Amphetamin/Meth Scrn Negative U Benzodiazepines Scrn Negative U Cocaine Metab Screen Negative U Marijuana (THC) Screen Negative 02/06/25 02/07/25 19:31 04:20 WBC 5.2 RBC 3.15 L Hgb 9.2 L Hct 27.8 L MCV 88 MCH 29.2 MCHC 33.1 RDW Std Deviation 40.2 Plt Count 227 Neut % (Auto) 64 Lymph % (Auto) 26 [place] % (Auto) 7 Eos % (Auto) 2 Baso % (Auto) 1 Neut # (Auto) 3.3 Lymph # (Auto) 1.3 [place] # (Auto) 0.4 Eos # (Auto) 0.1 Baso # (Auto) 0.0 Immature Gran # (Auto) 0.01 H Absolute Nucleated RBC 0.00 Immature Gran % 0 Nucleated RBC % 0 PT 10.9 INR 1.0 APTT 26.5 Sodium 141 144 Potassium 4.8 D 4.6 Chloride 107 110 H Carbon Dioxide 25.6 25.0 Anion Gap 8 9 BUN 44 H 44 H Creatinine 2.4 H 2.4 H Estim Creat Clear Calc 28.2 L 27.9 L eGFR 30 L 30 L BUN/Creatinine Ratio 18 18 Glucose 274 H D [address] Glu mg/dL 246 H Hemoglobin A1c 10.2 H Calculated Osmolality 302 H 298 H Lactic Acid Calcium 8.9 8.4 Corrected Calcium 9.1 8.9 Phosphorus 2.6 3.0 Magnesium 2.1 Total Bilirubin 0.3 AST 11 ALT < 7 L Alkaline Phosphatase 82 Troponin I B-Natriuretic Peptide Total Protein 5.3 L Albumin 3.8 3.4 Globulin 1.9 L Albumin/Globulin Ratio 1.8 Triglycerides 113 Cholesterol 205 H LDL Cholesterol, Calc 149 H HDL Cholesterol 33 L Cholesterol/HDL Ratio 6.2 Lipase Procalcitonin TSH 5.01 H Free T4 1.05 Ur Collection Type Urine Color Urine Clarity Urine pH Ur Specific [place] Urine Protein Urine Glucose (UA) Urine Ketones Urine Blood Urine Nitrite Urine Bilirubin Urine Urobilinogen (Auto) Ur Leukocyte Esterase Urine RBC Urine WBC Ur Squamous Epith Cells Urine Bacteria Ur Random Creatinine Ur Random Microalbumin U Random Total Protein Ur Random Sodium Ur Random Urea Nitrogn U Creat (Microalbumin) Microalb/Creat Ratio Urine Opiates Screen Urine Fentanyl Screen Ur Barbiturates Screen U Amphetamin/Meth Scrn U Benzodiazepines Scrn U Cocaine Metab Screen U Marijuana (THC) Screen Quality Measures Quality Measures VTE prophylaxis Assessment & Plan Assessment Current Active Medications: Generic Name Dose Route Start Last Admin Trade Name Freq PRN Reason Stop Dose Admin Acetaminophen 650 mg 02/06/25 14:26 Acetaminophen 325 Mg Tablet PO 03/08/25 14:25 Q6H PRN Fever >100.5 or pain 1-3 Hydrocodone Bitart/Acetaminophen 1 tab 02/06/25 14:42 Hydrocodone/Apap 5/325 Tablet PO 02/11/25 14:41 Q4HR PRN PAIN SCALE 4-6 (Moderate Atorvastatin Calcium 40 mg 02/07/25 21:00 Atorvastatin Calcium 20 Mg Tablet PO 03/09/25 20:59 HS NILAM Bisacodyl 10 mg 02/06/25 14:31 Bisacodyl 5 Mg Tabec PO 03/08/25 14:30 QDAY PRN CONSTIPATION Protocol Dextrose 25 ml 02/06/25 14:42 Dextrose 50%-Water Inj 50 Ml Syringe IV 03/08/25 14:41 Q15MIN PRN BG 50-70 responsive npo pt Dextrose 50 ml 02/06/25 14:42 Dextrose 50%-Water Inj 50 Ml Syringe IV 03/08/25 14:41 Q15MIN PRN BG <50 OR BG <70 & pt unresponsive Glucagon 1 mg 02/06/25 14:42 Glucagon Inj 1 Mg Vial IM Q15MIN PRN BG <70, and no IV access Heparin Sodium (Porcine) 5,000 unit 02/06/25 21:00 02/07/25 08:48 Heparin Sod Inj 5000 Unit/Ml Vial SC 02/20/25 20:59 5,000 unit Q12HR NILAM Administration Hydralazine HCl 10 mg 02/06/25 19:41 Hydralazine Inj 20 Mg/Ml Vial IVP 03/08/25 19:40 Q6H PRN SBP above 180 Sodium Chloride 1,000 mls @ 75 mls/hr 02/06/25 14:45 02/07/25 03:31 Ns IV 03/08/25 14:44 75 mls/hr .[id number] NILAM Administration Insulin Glargine 15 unit 02/07/25 09:00 02/07/25 09:14 Insulin Glargine (Lantus) 5 Unit/0.05 Ml (Per 5 Units) SC 03/09/25 08:59 Not Given QAM NILAM Insulin Glargine 23 unit 02/06/25 21:00 02/06/25 20:55 Insulin Glargine (Lantus) 5 Unit/0.05 Ml (Per 5 Units) SC 03/08/25 20:59 23 unit HS NILAM Administration Insulin Human Lispro 0 unit 02/06/25 17:00 02/07/25 08:36 Insulin Lispro (Admelog) 1 Unit/0.01 Ml Unit SC 03/08/25 16:59 Not Given AC NILAM Protocol Ondansetron HCl 4 mg 02/06/25 14:31 Ondansetron Inj 2 Mg/Ml Inj 2 Ml IVP 03/08/25 14:30 Q6H PRN NAUSEA OR VOMITING Protocol Pantoprazole Sodium 40 mg 02/07/25 09:00 02/07/25 08:48 Pantoprazole 40 Mg Tablet PO 03/09/25 08:59 40 mg QDAY NILAM Administration Plan Mr. Marshall is a 59-year-old Micronesian speaking gentleman with PMH of hypertension, hyperlipidemia, CKD IV, poorly controlled insulin dependent- T2DM (A1c 12/2024 10.5) , hx of nephrolithiasis, and peripheral neuropathy who presented to the ED after being seen by his outpatient PCP with abnormal labs with K 6.4, and Cr 2.9, non radiating chest pain, trop negative, ekg sinus bradycardia- asymptomatic, no peaked T waves . hyperkalemia resolved. Cr stable at 2.4, pending discharge today with outpatient nephrology follow up. #ANGELA on CKD IV - resolving #Query hypertensive nephrosclerosis #Query Diabetic nephropathy 12/2024: Renal ultrasound shows: Moderate bilateral renal parenchymal scarring, Left kidney shows cortical thinning Baseline: Cr between 2-3 Cr 2.8 on admission eGFR 25 consider pre, vs intra vs post renal etiolgies BUN/Cr ratio: 14.5, unlikely prerenal UA w 2+ protein and 4 + glucose Plan: - Daily CMP - spot urine protein, urine Cr ratio: <3.5 gm - renal US 02/06/25 with Bilateral renal cortical thinning, Mild bilateral renal parenchymal scar formation , No hydronephrosis - Avoid nephrotoxic medications - renally dose medications - cleared for discharge from nephro perspective. f/u outpatient with Dr. Bacon #Hyperkalemia- resolved lab work done outpatient showed K 6.4 CMP today shows slightly elevated in K 5.4, BUN 40 from 20 EKG with sinus bradycardia, no peaked t waves Plan: -CTM - repete renal panel, K wnl - 1x insulin 5 in the ED -if EKG changes, recommend calcium gluc, insulin, albuterol. #Hyperglycemia - improved #T2DM on Insulin - poorly controlled A1c 10.3 12/2024 pt reports being out of home test strips, Serum Glucose 445 Home Regimen - 30 units Long acting in the AM - 46 units long acting in the PM Plan - Management per primary team - 1x insulin 5 mg given in the ED - 15 units long acting in the AM - 13 units long acting in the PM #Dizziness - resolved pt reports feeling dizzy/light headed, he states that he experiences this when he goes from sitting to standing, query orthostatic hypotension. #Hypertensive urgency - resolved #chronic HTN - ok to resume home meds on discharge #BLE edema - well controlled - resume home furosemide 40 mg PO on discharge #HFpEF [55-60%]- BNP 237. #Kidney stones History of kidney stones, per patient, kidney stone were removed by surgery in 2019. #Bradycardia, asymptomatic #BLE Neuropathy #HLD #Hypothyroidism #Normocytic Anemia - Managment per primary team Thank you for allowing us to participate in the care of this patient Plan discussed with nephrology attending Dr. Arleen Jaquez MD Internal Medicine PGY-1 Attending Provider Attestation/Addendum Patient seen and examined with resident physician Dr. Jaquez. Note reviewed, agree with findings and recommendations. Patient well-known to me from recent admission for ANGELA on CKD. Agree with gentle IV fluids. Will monitor renal function closely. Underlying CKD from a poorly controlled hypertension and diabetes for many years. Creatinine tad better.
--- NOTE | 2025-02-07 10:30 | CHAP ---
Visit was made by the Spiritual Care Volunteer who prayed with them. Volunteer was in the hospital from 09:15-10:30.
--- NOTE | 2025-02-07 13:30 | ESDS_ITS ---
<Statement entered by Lea Payton MD - 02/08/25 15:08> I have reviewed the note and agree with the resident's assessment & plan with exceptions as below. I have personally reviewed labs, imaging, home meds/prior records, examined the patient, formulated and discussed management plan with the IM team. Lea Payton, PGY-2 Internal Medicine Planned Discharge Date 02/07/25 DS: Providers Provider Date of admission: 02/06/25 13:41 Primary care physician: Suzette Barrow PA-C Admitting Provider: Rom Garg DO Attending Provider on Admission: Rom Garg DO Consults: 02/06/25 14:48 Consult to Nephrology Routine Comment: Consulting Provider: Marianne Bacon 02/06/25 18:12 Health Equity Referral - Knowledge Deficit Routine Comment: Positive screening for knowledge deficit needs. Health Equity Referral - Nutrition Routine Comment: Positive screening for nutrition needs. Health Equity Referral - Transportation Routine Comment: Positive screening for transportation needs. Attending Provider on DC: Rom Garg DO Discharging Provider: Rom Garg DO DS: Diagnosis Problem List Completed Was Problem List Reviewed/Reconciled?: Yes Hospital Course Hospital Course Hospital course: Vahe Marshall is a 59 year old ukrainian speaking male with past medical history of HTN, CKD, T2DM, HLD, peripheral neuropathy, HLD presented from to the ED at [facility] after feeling dizzy, blurry vision. Patient was admitted for ANGELA on CKD likely due to hypertensive emergency. Patient was sent from PCP after reviewing labs done 1 month ago showing worsening kidney function and hyperkalemia of 6.6 back in December. Patient presented to the ED with mildly elevated potassium of 5.3 and his blood pressure was elevated at 224/96 in the ED. In the ED, he was given hydralazine and insulin for those problems, which stabilized . Patient since has been stabilized clinically with improvement of ANGELA with fluids and blood pressure management. Discharge Instructions Follow-up with your PCP within 1 week Follow-up with your software packaging engineer, Dr. Bacon within 1 week Take your medicines as prescribed I have ordered a lab slip for you to do labs and this is for your renal function. Do this before your nephrology appointment. Return to ED if your symptoms worsen or return Admission Diagnosis #ANGELA on CKD #hyperkalemia #HTN emergency #T2DM #neuropathy, likely due to T2DM #HLD Patient plan of care was discussed with the attending physician, Dr. Garg & senior resident Dr. Tata Magana MD PGY-1 Time Spent with Patient Time attestation: Total time spent providing and/or coordinating discharge services: Time spent: Greater than 30 minutes Exam Vital Signs Temp Pulse Resp BP Pulse Ox O2 Del Method 97.3 F 78 12 158/69 H 99 Room Air 02/07/25 08:00 02/07/25 08:00 02/07/25 08:00 02/07/25 08:00 02/07/25 08:00 02/07/25 08:00 Narrative Exam General: No acute distress; A&Ox3 Skin: Warm, dry, intact, no obvious rash. HENT: NCAT, EOMI, not icteric. External ears normal. No rhinorrhea. Moist mucous membranes Cardiovascular: Regular rate and rhythm, no murmur, +S1/S2. Respiratory: Lungs CTAB GI: abdomen soft, nontender, non-distended. No guarding or rebound tenderness. Extremities: no edema, no cyanosis, no clubbing. Extremity pulses present Neuro: No focal deficits observed. Conversant, moving all extremities. No overt cerebellar signs/incoordination. Psychiatric: Cooperative, appropriate affect. Discharge Plan Plan Patient Disposition: HOME (Self Care) Patient condition on transfer: Stable Care Plan Goals: Discharge instructions Follow-up with your PCP within 1 week Follow-up with your software packaging engineer, Dr. Bacon within 1 week Take your medicines as prescribed I have ordered a lab slip for you to do labs and this is for your renal function. Do this before your nephrology appointment. Return to ED if your symptoms worsen or return Prescriptions/Referrals Prescriptions/Med Rec: New atorvastatin 20 mg Tablet 40 mg PO HS 7 Days Qty: 14 0RF Continued cholestyramine 4 gram powder 4 g PO TID Qty: 201.6 0RF Rx Instructions: administer w/meal; avoid other meds within 1hr before or 4-6hr after dose gabapentin 400 mg capsule 400 mg PO TID 30 Days Qty: 90 1RF (DME) lancets [Accu-Chek Softclix Lancets] Misc See Rx Instructions .Route Qty: 100 0RF Rx Instructions: As directed (DME) Accu-Chek Guide test strips Strip See Rx Instructions .Route Qty: 50 3RF Rx Instructions: As directed sodium polystyrene sulfonate Powder 15 g PO QDAY PRN (Reason: Hyerkalemia) Qty: 15 0RF pravastatin 40 mg Tablet 40 mg PO QDAY levothyroxine 25 mcg capsule 25 mcg PO ACBR Qty: 30 2RF Rx Instructions: Take 1 capsule (25mcg) every morning, 2 hours before any food or other medications (DME) lancets [Accu-Chek Softclix Lancets] Misc See Rx Instructions .Route Qty: 100 0RF Rx Instructions: As directed Jardiance 10 mg tablet 10 mg PO QAM Qty: 30 3RF Januvia 50 mg tablet 50 mg PO QDAY Qty: 30 3RF furosemide [Lasix] 40 mg tablet 40 mg PO PRN PRN (Reason: edema) 30 Days Qty: 30 0RF Rx Instructions: take as needed for leg swelling or shortness of breath and weight gain more than 2 pounds in 1 day insulin glargine 100 unit/mL (3 mL) insulin pen 30 unit subcut .daily 30 Days Qty: 0 0RF Patient Comments: At night losartan 50 mg tablet 50 mg PO QDAY Qty: 30 0RF Changed clonidine HCl 0.1 mg tablet 0.1 mg PO BID 7 Days Qty: 10 0RF Rx Instructions: take if SBP > 170 Referrals: Suzette Barrow PA-C [Primary Care Provider] - Marianne Bacon MD [Physician] - Outpatient Orders (i.e. Home Health, Labs, Imaging): Renal Function Panel (Routine) Timeframe: 1 Week Location: Determined by Patient Ordered By: Lea Payton Patient/Caregiver Discharge Instructions Discharge Activity: activity as tolerated Education Materials: Controlling High Blood Pressure, Diabetes and Heart Diseas e, Coping with Kidney Failure, Diabetes and Kidney Disease Print Language: Citizen Of [place] Stand Alone Forms: Kelsey Award Info., Patient Portal Info Letter Discharge Order Discharge Orders: Discharge (Routine); Ordered 02/07/25 Ordered By: Lea Payton Quality Discharge Quality Measures VTE prophylaxis MD Attestestation MD Attestation Patient not discharged as expected, BP still elevated, will reevaluate tomorrow
[2025-02-07] MEDS: hydrALAZINE INJ 20 MG/ML VIAL 10 MG IVP ×2 (16:18→21:22)
[2025-02-07] MEDS: LABETALOL INJ 5 MG/ML VIAL 20 ML 10 MG IVP (18:24)
--- NOTE | 2025-02-07 19:50 | PC.NURSE ---
BP 170/80, HR 74, no complaints of headache or any discomfort, no S/Sx of distress. Dr. Coulter was made aware about discharge order that was placed today but was held during AM shift due to high BP. MD to put an order in.
--- NOTE | 2025-02-07 20:01 | PC.NURSE ---
Per AM RN, was not able to bring patient's home meds/list today. Med rec unable to be completed.
[2025-02-07] MEDS: ATORVASTATIN CALCIUM 20 MG TABLET 40 MG PO (21:17)
[2025-02-07] MEDS: INSULIN GLARGINE (Lantus) 5 UNIT/0.05 ML (PER 5 UNITS) 23 UNIT SC (21:43)
--- NOTE | 2025-02-07 23:58 | PC.NURSE ---
2339 Post administration of anti-hypertensive med: BP 150/68, HR 69. Dr. Coulter was made aware, okayed to discharge patient. [id number] Called patient's family to let them know that patient is being discharged but family disagreed due BP still elevated. [id number] Dr. Coulter made aware of family appealing patient discharge. okayed for patient to stay. Possible DC tomorrow.
[2025-02-08] VITALS (16 sets, daily range): BP systolic 133–172; BP diastolic 61–81; PULSE 63–76; RESP 12–18; TEMP 36.1–36.8; O2SAT 98–99; BMI 21.4
[2025-02-08] MEDS: SODIUM CHLORIDE 0.9% 1000 ML 1,000 ML 75 ML IV (00:01)
[2025-02-08] MEDS: hydrALAZINE INJ 20 MG/ML VIAL 10 MG IVP (04:56)
[2025-02-08 06:16] LABS: Basophils # (Auto) 0.0 Thou/mm3 (0.0-0.2); Basophils % (Auto) 1 % (0-2.5); Eosinophils # (Auto) 0.1 Thou/mm3 (0.0-0.5); Eosinophils % (Auto) 2 % (0-10); Hematocrit 29.7 % (41.0-53.0); Hemoglobin 9.8 g/dL (13.5-16.0); Immature Granulocytes Auto 0.01 Thou/mm3 (0.00-0.00); Lymphocytes # (Auto) 2.3 Thou/mm3 (1.0-4.8); Lymphocytes % (Auto) 41 % (10-50); Mean Corpuscular HGB Conc 33.0 g/dl (31.0-37.0); Mean Corpuscular Hemoglobin 29.4 pg (25.0-35.0); Mean Corpuscular Volume 89 fL (80-100); Monocytes # (Auto) 0.4 Thou/mm3 (0.0-0.8); Monocytes % (Auto) 6 % (0-12); Neutrophils # (Auto) 2.8 Thou/mm3 (1.8-7.7); Neutrophils % (Auto) 50 % (37-80); Nucleated Red Blood Cell # 0.00 Thou/mm3 (0.00-0.00); Nucleated Red Blood Cell % 0 /100 WBC (0); Platelet Count 237 Thou/mm3 (140-440); RDW Standard Deviation 41.8 fL (35.1-43.9); Red Blood Count 3.33 Miln/mm3 (4.50-5.90); White Blood Count 5.5 Thou/mm3 (3.8-10.6)
[2025-02-08 06:39] LABS: Alanine Aminotransferase < 7 U/L (10-49); Albumin, Serum 3.6 gm/dL (3.4-4.8); Albumin/Globulin Ratio 1.8 (1.2-2.2); Alkaline Phosphatase 86 U/L (46-116); Anion Gap 13 (7-16); Aspartate Amino Transferase 12 U/L (0-34); BUN/Creatinine Ratio 19 Ratio (12-20); Bilirubin,Total 0.3 mg/dL (0.3-1.2); Blood Urea Nitrogen 39 mg/dL (9-23); Calcium 8.6 mg/dL (8.3-10.6); Calcium (Corrected) 8.9 mg/dL (8.5-10.1); Carbon Dioxide 22.5 mMol/L (20.0-31.0); Chloride 110 mMol/L (98-107); Creatinine (Component) 2.1 mg/dL (0.6-1.3); Estimated Creatinine Clearance 31.5 mL/min (>60); Globulin 2.0 gm/dL (2.3-3.5); Glucose 85 mg/dL (74-106); Magnesium 2.0 mg/dL (1.6-2.6); Osmolality,Calculated 297 (275-295); Phosphorous 3.6 mg/dL (2.4-5.1); Potassium 3.8 mMol/L (3.4-5.1); Sodium 145 mMol/L (136-145); Total Protein 5.6 gm/dL (5.7-8.2); eGFR 35 See Note
[2025-02-08] MEDS: PANTOPRAZOLE 40 MG TABLET PO (09:13)
[2025-02-08] MEDS: LOSARTAN POTASSIUM 25 MG TABLET PO (09:13)
[2025-02-08] MEDS: NIFEdipine XL 30 MG TABCR PO (09:13)
[2025-02-08] MEDS: HEPARIN SOD INJ 5000 UNIT/ML VIAL SC ×2 (09:14→20:53)
--- NOTE | 2025-02-08 09:17 | ESPR_ITS ---
Documentation for date of: 02/09/25 Subjective Subjective Interval history: Mr. Marshall is a 59-year-old Surinamese speaking gentleman with PMH of hypertension, hyperlipidemia, CKD IV, insulin dependent- T2DM (A1c 12/2024 10.5) , nephrolithiasis, and peripheral neuropathy who presented to the ED after being seen by his outpatient PCP for abnormal lab values. Pt has labs drawn 01/27 in hand which show, K 6.4, Cr 2.9. Patient states that had been having some palpitations, and non radiating chest pain, that is not associated with exertion. He endorses intermittent dizziness over the past few days in the morning, but is not currently feeling dizzy. 02/06/2025: Nephrology consulted for ANGELA on CKD IV. Cr. 2.8 unclear what is his baseline ~2.0?, eGFR 25, pt makes urine. denies any current chest pain, dizziness, or shortness of breath. appears euvolemic, lungs are clear to auscultation bilaterally, BLE with trace edema. 02/08/2025: Pt seen and examined at bedside. K wnl, Cr. 2.4 from 2.8, pt denies chest pain, dizziness, shortness of breath. Euvolemic on exam, lungs CTAB and BLE w/o edema. plan for d/c today and f/u outpatient with me Review of Systems Review of Systems Narrative Review of Systems: CONSTITUTIONAL: Patient denies any fever, chills. HEENT: Denies any visual disturbances or hearing problems. CARDIOVASCULAR: Patient denies any chest pain, shortness of breath, swelling in the lower extremities. PULMONARY: Patient denies any shortness of breath, cough. GASTROINTESTINAL: Patient denies any abdominal pain, constipation, nausea, vomiting, diarrhea. GENITOURINARY: Patient denies any urinary symptoms of burning or frequency or hematuria, denies any form in the urine. SKIN: Denies any rash. MUSCULOSKELETAL: Denies any muscular skeletal problems of joint pains. NEUROLOGICAL: Denies any neurological problems of strokes, seizures or confusion. Denies any memory problems. PSYCHIATRIC: Denies any depression or anxiety. LYMPHATICS : No lymphadenopathy Exam Vital Signs Temp Pulse Resp BP Pulse Ox O2 Del Method 36.1 C 64 16 155/79 H 98 Room Air 02/09/25 11:40 02/09/25 11:40 02/09/25 11:40 02/09/25 11:40 02/09/25 11:40 02/09/25 11:40 Narrative Exam GENERAL: thai speaking patient in no acute distress, AAO x3, sitting upright laying in bed HEENT: Head AT/ NC. Mucous membranes moist. PERRL. NECK: Supple, no lymphadenopathy, no carotid bruits. CARDIOVASCULAR: bradycardic, regular rhythm. Normal S1/S2, No m/r/g. No pitting edema of bilateral LEs. RESPIRATORY: CTAB. No wheezing, rhonchi, crackles. GASTROINTESTINAL: Abdomen soft, no palpable masses, non tender .no rebound and guarding, Bowel sounds present MUSCULOSKELETAL:? No cyanosis or edema, no visible joint swelling. NEUROLOGICAL: CN II-XII grossly intact. No focal deficits. Sensation intact, symmetric. PSYCHIATRIC: Awake and alert, not agitated, normal mood and affect. SKIN: No obvious rashes, no jaundice, normal turgor. Objective Labs 02/09/25 05:18 02/09/25 05:18 Labs: Laboratory Results - last 24 hr 02/09/25 05:18 WBC 5.8 RBC 2.92 L Hgb 8.7 L Hct 26.4 L MCV 90 MCH 29.8 MCHC 33.0 RDW Std Deviation 42.4 Plt Count 185 D Neut % (Auto) 81 H Lymph % (Auto) 10 [place] % (Auto) 7 Eos % (Auto) 1 Baso % (Auto) 1 Neut # (Auto) 4.7 Lymph # (Auto) 0.6 L [place] # (Auto) 0.4 Eos # (Auto) 0.1 Baso # (Auto) 0.0 Immature Gran # (Auto) 0.02 H Absolute Nucleated RBC 0.00 Immature Gran % 0 Nucleated RBC % 0 Sodium 141 Potassium 4.8 D Chloride 109 H Carbon Dioxide 22.8 Anion Gap 9 BUN 35 H Creatinine 2.2 H Estim Creat Clear Calc 31.2 L eGFR 33 L BUN/Creatinine Ratio 16 Glucose 163 H D Calculated Osmolality 293 Calcium 8.2 L Corrected Calcium 8.8 Phosphorus 3.5 Magnesium 1.6 Total Bilirubin 0.2 L AST 10 ALT < 7 L Alkaline Phosphatase 77 Total Protein 5.1 L Albumin 3.2 L Globulin 1.9 L Albumin/Globulin Ratio 1.7 Assessment & Plan Additional Assessment & Plan Additional Plan: 59-year-old male with past medical history of hypertension, diabetes, hypothyroidism, HFpEF presented to the ED with ANGELA #Acute Kidney injury on CKD, improving Creatinine seems to be improving. 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 Renal ultrasound shows: Moderate bilateral renal parenchymal scarring Left kidney shows cortical thinning Plan: ? Avoid nephrotoxins ? Renally dose medications ? Strict JOSE's ? Trend CMP #Hypertensive-blood pressures are improving. #HFpEF [55-60%] #Diabetes mellitus type 2 #Peripheral neuropathy #Hypothyroidism Above handled by primary hospitalist team
--- NOTE | 2025-02-08 11:56 | PC.SS ---
Update: Possible d/c home today. Pending blood pressure stabilization.
[2025-02-08] MEDS: INSULIN LISPRO (AdmeLOG) 1 UNIT/0.01 ML UNIT SC ×2 (12:37→17:36)
--- NOTE | 2025-02-08 16:22 | PD.RESPRO ---
Documentation for date of: 02/08/25 Subjective Subjective Interval history: Reason for consult: ANGELA History of present illness: Mr. Marshall is a 59-year-old Yi speaking gentleman with PMH of hypertension, hyperlipidemia, CKD IV, insulin dependent- T2DM (A1c 12/2024 10.5) , nephrolithiasis, and peripheral neuropathy who presented to the ED after being seen by his outpatient PCP for abnormal lab values. Pt has labs drawn 01/27 in hand which show, K 6.4, Cr 2.9. Patient states that had been having some palpitations, and non radiating chest pain, that is not associated with exertion. He endorses intermittent dizziness over the past few days in the morning, but is not currently feeling dizzy. He reports that he does take his medications regularly, however he did not take his medications this morning. ROS pt endorses chest pain, epigastric tenderness, pt denies shortness of breath, nausea, vomiting ,dysuria Surgical hx - Positive Abdominal Surgery (cholecystectomy and appendectomy), Joint Replacement and big toe amputation ED course ED vitals Afebrile, HR 65, BP 151/74, RR 16 satting 99% on RA, finger glucos 300s Dx CBC normocytic anemia, CMP K 5.4, Cr. 2.8 BUN 40. BNP 237, procalcitonin wnl, troponin wnl, Glucose 445, UA with 2+ protein and 4+ glucose, Utox neg. CXR no active disease EKG sinus bradycardia Tx Hydral 10 mg IV x1 Insulin 5 U 1x 02/06/2025: Nephrology consulted for ANGELA on CKD IV. Cr. 2.8 unclear what is his baseline ~2.0?, eGFR 25, pt makes urine. denies any current chest pain, dizziness, or shortness of breath. appears euvolemic, lungs are clear to auscultation bilaterally, BLE with trace edema. Exam Vital Signs Temp Pulse Resp BP Pulse Ox O2 Del Method 98.0 F 71 14 167/81 H 99 Room Air 02/08/25 12:00 02/08/25 15:40 02/08/25 12:00 02/08/25 15:40 02/08/25 12:00 02/08/25 12:00 Objective Labs 02/08/25 05:28 02/08/25 05:28 Labs: Laboratory Results - last 24 hr 02/08/25 05:28 WBC 5.5 RBC 3.33 L Hgb 9.8 L Hct 29.7 L MCV 89 MCH 29.4 MCHC 33.0 RDW Std Deviation 41.8 Plt Count 237 Neut % (Auto) 50 Lymph % (Auto) 41 [place] % (Auto) 6 Eos % (Auto) 2 Baso % (Auto) 1 Neut # (Auto) 2.8 Lymph # (Auto) 2.3 [place] # (Auto) 0.4 Eos # (Auto) 0.1 Baso # (Auto) 0.0 Immature Gran # (Auto) 0.01 H Absolute Nucleated RBC 0.00 Immature Gran % 0 Nucleated RBC % 0 Sodium 145 Potassium 3.8 D Chloride 110 H Carbon Dioxide 22.5 Anion Gap 13 BUN 39 H Creatinine 2.1 H Estim Creat Clear Calc 31.5 L eGFR 35 L BUN/Creatinine Ratio 19 Glucose 85 Calculated Osmolality 297 H Calcium 8.6 Corrected Calcium 8.9 Phosphorus 3.6 Magnesium 2.0 Total Bilirubin 0.3 AST 12 ALT < 7 L Alkaline Phosphatase 86 Total Protein 5.6 L Albumin 3.6 Globulin 2.0 L Albumin/Globulin Ratio 1.8 Quality Measures Quality Measures VTE prophylaxis Assessment & Plan Assessment Current Active Medications: Generic Name Dose Route Start Last Admin Trade Name Freq PRN Reason Stop Dose Admin Acetaminophen 650 mg 02/06/25 14:26 Acetaminophen 325 Mg Tablet PO 03/08/25 14:25 Q6H PRN Fever >100.5 or pain 1-3 Hydrocodone Bitart/Acetaminophen 1 tab 02/06/25 14:42 Hydrocodone/Apap 5/325 Tablet PO 02/11/25 14:41 Q4HR PRN PAIN SCALE 4-6 (Moderate Atorvastatin Calcium 40 mg 02/07/25 21:00 02/07/25 21:17 Atorvastatin Calcium 20 Mg Tablet PO 03/09/25 20:59 40 mg HS NILAM Administration Bisacodyl 10 mg 02/06/25 14:31 Bisacodyl 5 Mg Tabec PO 03/08/25 14:30 QDAY PRN CONSTIPATION Protocol Dextrose 25 ml 02/06/25 14:42 Dextrose 50%-Water Inj 50 Ml Syringe IV 03/08/25 14:41 Q15MIN PRN BG 50-70 responsive npo pt Dextrose 50 ml 02/06/25 14:42 Dextrose 50%-Water Inj 50 Ml Syringe IV 03/08/25 14:41 Q15MIN PRN BG <50 OR BG <70 & pt unresponsive Glucagon 1 mg 02/06/25 14:42 Glucagon Inj 1 Mg Vial IM Q15MIN PRN BG <70, and no IV access Heparin Sodium (Porcine) 5,000 unit 02/06/25 21:00 02/08/25 09:14 Heparin Sod Inj 5000 Unit/Ml Vial SC 02/20/25 20:59 5,000 unit Q12HR NILAM Administration Hydralazine HCl 10 mg 02/07/25 21:08 02/08/25 04:56 Hydralazine Inj 20 Mg/Ml Vial IVP 03/08/25 19:40 10 mg Q6H PRN Administration SBP above 170 Hydralazine HCl 25 mg 02/08/25 09:00 02/08/25 15:40 Hydralazine Hcl 25 Mg Tablet PO 03/10/25 08:59 25 mg TID NILAM Administration Insulin Glargine 15 unit 02/07/25 09:00 02/07/25 09:14 Insulin Glargine (Lantus) 5 Unit/0.05 Ml (Per 5 Units) [place] 03/09/25 08:59 Not Given QAM [facility] Insulin Glargine 23 unit 02/06/25 21:00 02/07/25 21:43 Insulin Glargine (Lantus) 5 Unit/0.05 Ml (Per 5 Units) [place] 03/08/25 20:59 23 unit HS NILAM Administration Insulin Human Lispro 0 unit 02/06/25 17:00 02/08/25 12:37 Insulin Lispro (Admelog) 1 Unit/0.01 Ml Unit SC 03/08/25 16:59 1 unit AC NILAM Administration Protocol Losartan Potassium 25 mg 02/08/25 09:00 02/08/25 09:13 Losartan Potassium 25 Mg Tablet PO 03/10/25 08:59 25 mg QDAY NILAM Administration Nifedipine 30 mg 02/08/25 09:00 02/08/25 09:13 Nifedipine Xl 30 Mg Tabcr PO 03/10/25 08:59 30 mg QDAY NILAM Administration Ondansetron HCl 4 mg 02/06/25 14:31 Ondansetron Inj 2 Mg/Ml Inj 2 Ml IVP 03/08/25 14:30 Q6H PRN NAUSEA OR VOMITING Protocol Pantoprazole Sodium 40 mg 02/07/25 09:00 02/08/25 09:13 Pantoprazole 40 Mg Tablet PO 03/09/25 08:59 40 mg QDAY NILAM Administration
--- NOTE | 2025-02-08 17:23 | ESPR_ITS ---
Documentation for date of: 02/08/2025 Subjective Subjective Interval history: Pt examined at bedside today. No acute overnight events. Patient is wondering when he can be able to go home. Patient wondering if his blood pressure has been lower. He says that he previously had a CGM monitor, however he was not unable to get it from the pharmacy. Exam Vital Signs Temp Pulse Resp BP Pulse Ox O2 Del Method 96.9 F 60 13 127/58 L 98 Room Air 02/09/25 04:00 02/09/25 05:06 02/09/25 04:00 02/09/25 05:06 02/09/25 04:00 02/09/25 04:00 Narrative Exam General: No acute distress; A&Ox3 Skin: Warm, dry, intact, no obvious rash. HENT: NCAT, EOMI, not icteric. External ears normal. No rhinorrhea. Moist mucous membranes Cardiovascular: Regular rate and rhythm, no murmur, +S1/S2. Respiratory: Lungs CTAB GI: abdomen soft, nontender, non-distended. No guarding or rebound tenderness. Extremities: no edema, no cyanosis, no clubbing. Extremity pulses present Neuro: No focal deficits observed. Conversant, moving all extremities. No overt cerebellar signs/incoordination. Psychiatric: Cooperative, appropriate affect. Objective Labs 02/09/25 05:18 02/09/25 05:18 Labs: Laboratory Results - last 24 hr 02/09/25 05:18 WBC 5.8 RBC 2.92 L Hgb 8.7 L Hct 26.4 L MCV 90 MCH 29.8 MCHC 33.0 RDW Std Deviation 42.4 Plt Count 185 D Neut % (Auto) 81 H Lymph % (Auto) 10 [place] % (Auto) 7 Eos % (Auto) 1 Baso % (Auto) 1 Neut # (Auto) 4.7 Lymph # (Auto) 0.6 L [place] # (Auto) 0.4 Eos # (Auto) 0.1 Baso # (Auto) 0.0 Immature Gran # (Auto) 0.02 H Absolute Nucleated RBC 0.00 Immature Gran % 0 Nucleated RBC % 0 Quality Measures Quality Measures VTE prophylaxis Assessment & Plan Assessment Current Active Medications: Generic Name Dose Route Start Last Admin Trade Name Freq PRN Reason Stop Dose Admin Acetaminophen 650 mg 02/06/25 14:26 Acetaminophen 325 Mg Tablet PO 03/08/25 14:25 Q6H PRN Fever >100.5 or pain 1-3 Hydrocodone Bitart/Acetaminophen 1 tab 02/06/25 14:42 Hydrocodone/Apap 5/325 Tablet PO 02/11/25 14:41 Q4HR PRN PAIN SCALE 4-6 (Moderate Atorvastatin Calcium 40 mg 02/07/25 21:00 02/08/25 20:53 Atorvastatin Calcium 20 Mg Tablet PO 03/09/25 20:59 40 mg HS NILAM Administration Bisacodyl 10 mg 02/06/25 14:31 Bisacodyl 5 Mg Tabec PO 03/08/25 14:30 QDAY PRN CONSTIPATION Protocol Clonidine 0.1 mg 02/08/25 16:50 02/08/25 20:52 Clonidine Hcl 0.1 Mg Tablet PO 03/10/25 16:49 0.1 mg BID NILAM Administration Dextrose 25 ml 02/06/25 14:42 Dextrose 50%-Water Inj 50 Ml Syringe IV 03/08/25 14:41 Q15MIN PRN BG 50-70 responsive npo pt Dextrose 50 ml 02/06/25 14:42 Dextrose 50%-Water Inj 50 Ml Syringe IV 03/08/25 14:41 Q15MIN PRN BG <50 OR BG <70 & pt unresponsive Glucagon 1 mg 02/06/25 14:42 Glucagon Inj 1 Mg Vial IM Q15MIN PRN BG <70, and no IV access Heparin Sodium (Porcine) 5,000 unit 02/06/25 21:00 02/08/25 20:53 Heparin Sod Inj 5000 Unit/Ml Vial SC 02/20/25 20:59 5,000 unit Q12HR NILAM Administration Hydralazine HCl 10 mg 02/07/25 21:08 02/08/25 04:56 Hydralazine Inj 20 Mg/Ml Vial IVP 03/08/25 19:40 10 mg Q6H PRN Administration SBP above 170 Hydralazine HCl 50 mg 02/08/25 22:00 02/09/25 05:06 Hydralazine Hcl 25 Mg Tablet PO 03/10/25 21:59 50 mg TID NILAM Administration Insulin Glargine 15 unit 02/07/25 09:00 02/07/25 09:14 Insulin Glargine (Lantus) 5 Unit/0.05 Ml (Per 5 Units) [place] 03/09/25 08:59 Not Given QAM NILAM Insulin Glargine 23 unit 02/06/25 21:00 02/08/25 20:55 Insulin Glargine (Lantus) 5 Unit/0.05 Ml (Per 5 Units) [place] 03/08/25 20:59 23 unit HS NILAM Administration Insulin Human Lispro 0 unit 02/06/25 17:00 02/08/25 17:36 Insulin Lispro (Admelog) 1 Unit/0.01 Ml Unit SC 03/08/25 16:59 1 unit AC NILAM Administration Protocol Losartan Potassium 25 mg 02/08/25 09:00 02/08/25 09:13 Losartan Potassium 25 Mg Tablet PO 03/10/25 08:59 25 mg QDAY NILAM Administration Nifedipine 30 mg 02/08/25 09:00 02/08/25 09:13 Nifedipine Xl 30 Mg Tabcr PO 03/10/25 08:59 30 mg QDAY NILAM Administration Ondansetron HCl 4 mg 02/06/25 14:31 Ondansetron Inj 2 Mg/Ml Inj 2 Ml IVP 03/08/25 14:30 Q6H PRN NAUSEA OR VOMITING Protocol Pantoprazole Sodium 40 mg 02/07/25 09:00 02/08/25 09:13 Pantoprazole 40 Mg Tablet PO 03/09/25 08:59 40 mg QDAY NILAM Administration Plan Assessment Vahe Marshall is a 59 year old frisian speaking male with past medical history of HTN, CKD, T2DM, HLD, peripheral neuropathy, HLD presented from to the ED after feeling dizzy, blurry vision, endorsing transient non-radiating palpitations at rest and found to have hypertensive emergency. Patient admitted for ANGELA on CKD. #ANGELA on CKD Cr admission, 2.8 to 2.1 Likely related to poorly controlled DM2 Plan: ? Nephrology consulted, appreciate recommendations ? Avoid nephrotoxic agents ? Renally dose medicines #Insulin-dependent type 2 diabetes mellitus, poorly controlled Uses glargine 46 units at night and 30 units in the morning A1c over 10 Plan: ? Sliding scale insulin ? Hypoglycemic protocol in place ? Blood sugar checks with meals ? CGM to be prescribed outpatient ? Lantus 23 units at night #Hypertension #Hyperlipidemia Chronic ASCVD risk with 149 LDL and DM recommends high intenisty statin Pt is requiring multiple BP meds in which we will uptitrate as tolerated Plan: ? Resume home losartan 25 mg ? Hydralazine 50 mg 3 times daily ? Nifedipine XL 30 mg every day ? Continue Lipitor 40 mg at bedtime #Subclinical hypothyroidism TSH: 5 Free T4 unremarkable Plan: ? Outpatient TSH follow-up within 4 to 6 weeks #Hypertensive emergency, resolved #Hyperkalemia, resolved #Health Maintenance Disposition: Telemetry DVT prophylaxis: Heparin GI prophylaxis: Protonix Diet: Carb low CODE STATUS: Full Patient seen and care discussed with my attending physician, Dr. Forest Payton, PGY-2 Attending Provider Attestation/Addendum I have discussed and was present for the essential components of the history, physical examination, diagnosis, and treatment plan with the resident. I agree with the patient's care as documented by the resident and amended herein by me. Davon Garg DO. Although this document has been carefully reviewed, there may still be some phonetic and other typographical errors. These errors are purely grammatical due to imperfections in the software program and should not be construed in any way to compromise the substance of the patient's medical care during this visit. \
[2025-02-08] MEDS: ATORVASTATIN CALCIUM 20 MG TABLET 40 MG PO (20:53)
[2025-02-08] MEDS: INSULIN GLARGINE (Lantus) 5 UNIT/0.05 ML (PER 5 UNITS) 23 UNIT SC (20:55)
[2025-02-09] VITALS: BP 139/70; PULSE 53; PULSE 99; RESP 12; TEMP 36.8; O2SAT 99
[2025-02-09 04:00] VITALS: BP 149/63; PULSE 74; PULSE 80; RESP 13; TEMP 36.1; O2SAT 98
--- NOTE | 2025-02-09 04:34 | PC.NURSE ---
Dr notified regarding low blood sugars, no new orders
[2025-02-09 05:06] VITALS: BP 127/58; PULSE 60
[2025-02-09 05:47] VITALS: BMI 22.1
[2025-02-09 06:16] LABS: Basophils # (Auto) 0.0 Thou/mm3 (0.0-0.2); Basophils % (Auto) 1 % (0-2.5); Eosinophils # (Auto) 0.1 Thou/mm3 (0.0-0.5); Eosinophils % (Auto) 1 % (0-10); Hematocrit 26.4 % (41.0-53.0); Immature Granulocytes Auto 0.02 Thou/mm3 (0.00-0.00); Lymphocytes # (Auto) 0.6 Thou/mm3 (1.0-4.8); Lymphocytes % (Auto) 10 % (10-50); Mean Corpuscular HGB Conc 33.0 g/dl (31.0-37.0); Mean Corpuscular Hemoglobin 29.8 pg (25.0-35.0); Mean Corpuscular Volume 90 fL (80-100); Monocytes # (Auto) 0.4 Thou/mm3 (0.0-0.8); Monocytes % (Auto) 7 % (0-12); Neutrophils # (Auto) 4.7 Thou/mm3 (1.8-7.7); Neutrophils % (Auto) 81 % (37-80); Nucleated Red Blood Cell # 0.00 Thou/mm3 (0.00-0.00); Nucleated Red Blood Cell % 0 /100 WBC (0); Platelet Count 185 Thou/mm3 (140-440); RDW Standard Deviation 42.4 fL (35.1-43.9); Red Blood Count 2.92 Miln/mm3 (4.50-5.90); White Blood Count 5.8 Thou/mm3 (3.8-10.6)
[2025-02-09 06:20] LABS: Hemoglobin 8.7 g/dL (13.5-16.0)
[2025-02-09 07:06] LABS: Alanine Aminotransferase < 7 U/L (10-49); Albumin, Serum 3.2 gm/dL (3.4-4.8); Albumin/Globulin Ratio 1.7 (1.2-2.2); Alkaline Phosphatase 77 U/L (46-116); Anion Gap 9 (7-16); Aspartate Amino Transferase 10 U/L (0-34); BUN/Creatinine Ratio 16 Ratio (12-20); Bilirubin,Total 0.2 mg/dL (0.3-1.2); Blood Urea Nitrogen 35 mg/dL (9-23); Calcium 8.2 mg/dL (8.3-10.6); Calcium (Corrected) 8.8 mg/dL (8.5-10.1); Carbon Dioxide 22.8 mMol/L (20.0-31.0); Chloride 109 mMol/L (98-107); Creatinine (Component) 2.2 mg/dL (0.6-1.3); Estimated Creatinine Clearance 31.2 mL/min (>60); Globulin 1.9 gm/dL (2.3-3.5); Glucose 163 mg/dL (74-106); Magnesium 1.6 mg/dL (1.6-2.6); Osmolality,Calculated 293 (275-295); Phosphorous 3.5 mg/dL (2.4-5.1); Potassium 4.8 mMol/L (3.4-5.1); Sodium 141 mMol/L (136-145); Total Protein 5.1 gm/dL (5.7-8.2); eGFR 33 See Note
[2025-02-09 08:00] VITALS: BP 148/72; PULSE 52; PULSE 65; RESP 19; TEMP 36.2; O2SAT 99
--- NOTE | 2025-02-09 08:05 | PD.RESPRO ---
Documentation for date of: 02/09/25 Subjective Subjective Interval history: Mr. Marshall is a 59-year-old Micronesian speaking gentleman with PMH of hypertension, hyperlipidemia, CKD IV, insulin dependent- T2DM (A1c 12/2024 10.5) , nephrolithiasis, and peripheral neuropathy who presented to the ED after being seen by his outpatient PCP for abnormal lab values. Pt has labs drawn 01/27 in hand which show, K 6.4, Cr 2.9. Patient states that had been having some palpitations, and non radiating chest pain, that is not associated with exertion. He endorses intermittent dizziness over the past few days in the morning, but is not currently feeling dizzy. 02/06/2025: Nephrology consulted for ANGELA on CKD IV. Cr. 2.8 unclear what is his baseline ~2.0?, eGFR 25, pt makes urine. denies any current chest pain, dizziness, or shortness of breath. appears euvolemic, lungs are clear to auscultation bilaterally, BLE with trace edema. 02/07/2025: Pt seen and examined at bedside. K wnl, Cr. 2.4 from 2.8, pt denies chest pain, dizziness, shortness of breath. Euvolemic on exam, lungs CTAB and BLE w/o edema. plan for d/c today and f/u outpatient with Dr. Bacon. 02/09/2025: Patient seen and examined at bedside, pt wondering when he will be able to discharge, per primary team BP was labile, requiring better control prior to discharge, BP today 120-140s on nifedipine 30 qd, hydralizine 50 tid, and losartan 25 qd. Cr 2.2 from 2.1, K 4.8. BUN 35 from 39. Hgb 8.7 from 9.8, gave retecrit and IV ferumoxytol 510mg x1. discharge per primary team, ok to d/c from nephrology perspective and f/u with Dr. Bacon outpatient. Exam Vital Signs Temp Pulse Resp BP Pulse Ox O2 Del Method 96.9 F 60 13 127/58 L 98 Room Air 02/09/25 04:00 02/09/25 05:06 02/09/25 04:00 02/09/25 05:06 02/09/25 04:00 02/09/25 04:00 Narrative Exam GENERAL: nigerien speaking patient in no acute distress, AAO x3, sitting upright laying in bed HEENT: Head AT/ NC. Mucous membranes moist. PERRL. NECK: Supple, no lymphadenopathy, no carotid bruits. CARDIOVASCULAR: bradycardic, regular rhythm. Normal S1/S2, No m/r/g. No pitting edema of bilateral LEs. RESPIRATORY: CTAB. No wheezing, rhonchi, crackles. GASTROINTESTINAL: Abdomen soft, no palpable masses, non tender .no rebound and guarding, Bowel sounds present MUSCULOSKELETAL:? No cyanosis or edema, no visible joint swelling. NEUROLOGICAL: CN II-XII grossly intact. No focal deficits. Sensation intact, symmetric. PSYCHIATRIC: Awake and alert, not agitated, normal mood and affect. SKIN: No obvious rashes, no jaundice, normal turgor. Objective Labs 02/09/25 05:18 02/09/25 05:18 Labs: Laboratory Results - last 24 hr 02/09/25 05:18 WBC 5.8 RBC 2.92 L Hgb 8.7 L Hct 26.4 L MCV 90 MCH 29.8 MCHC 33.0 RDW Std Deviation 42.4 Plt Count 185 D Neut % (Auto) 81 H Lymph % (Auto) 10 [place] % (Auto) 7 Eos % (Auto) 1 Baso % (Auto) 1 Neut # (Auto) 4.7 Lymph # (Auto) 0.6 L [place] # (Auto) 0.4 Eos # (Auto) 0.1 Baso # (Auto) 0.0 Immature Gran # (Auto) 0.02 H Absolute Nucleated RBC 0.00 Immature Gran % 0 Nucleated RBC % 0 Sodium 141 Potassium 4.8 D Chloride 109 H Carbon Dioxide 22.8 Anion Gap 9 BUN 35 H Creatinine 2.2 H Estim Creat Clear Calc 31.2 L eGFR 33 L BUN/Creatinine Ratio 16 Glucose 163 H D Calculated Osmolality 293 Calcium 8.2 L Corrected Calcium 8.8 Phosphorus 3.5 Magnesium 1.6 Total Bilirubin 0.2 L AST 10 ALT < 7 L Alkaline Phosphatase 77 Total Protein 5.1 L Albumin 3.2 L Globulin 1.9 L Albumin/Globulin Ratio 1.7 Quality Measures Quality Measures VTE prophylaxis Assessment & Plan Assessment Current Active Medications: Generic Name Dose Route Start Last Admin Trade Name Freq PRN Reason Stop Dose Admin Acetaminophen 650 mg 02/06/25 14:26 Acetaminophen 325 Mg Tablet PO 03/08/25 14:25 Q6H PRN Fever >100.5 or pain 1-3 Hydrocodone Bitart/Acetaminophen 1 tab 02/06/25 14:42 Hydrocodone/Apap 5/325 Tablet PO 02/11/25 14:41 Q4HR PRN PAIN SCALE 4-6 (Moderate Atorvastatin Calcium 40 mg 02/07/25 21:00 02/08/25 20:53 Atorvastatin Calcium 20 Mg Tablet PO 03/09/25 20:59 40 mg HS NILAM Administration Bisacodyl 10 mg 02/06/25 14:31 Bisacodyl 5 Mg Tabec PO 03/08/25 14:30 QDAY PRN CONSTIPATION Protocol Clonidine 0.1 mg 02/08/25 16:50 02/08/25 20:52 Clonidine Hcl 0.1 Mg Tablet PO 03/10/25 16:49 0.1 mg BID NILAM Administration Dextrose 25 ml 02/06/25 14:42 Dextrose 50%-Water Inj 50 Ml Syringe IV 03/08/25 14:41 Q15MIN PRN BG 50-70 responsive npo pt Dextrose 50 ml 02/06/25 14:42 Dextrose 50%-Water Inj 50 Ml Syringe IV 03/08/25 14:41 Q15MIN PRN BG <50 OR BG <70 & pt unresponsive Glucagon 1 mg 02/06/25 14:42 Glucagon Inj 1 Mg Vial IM Q15MIN PRN BG <70, and no IV access Heparin Sodium (Porcine) 5,000 unit 02/06/25 21:00 02/08/25 20:53 Heparin Sod Inj 5000 Unit/Ml Vial SC 02/20/25 20:59 5,000 unit Q12HR NILAM Administration Hydralazine HCl 10 mg 02/07/25 21:08 02/08/25 04:56 Hydralazine Inj 20 Mg/Ml Vial IVP 03/08/25 19:40 10 mg Q6H PRN Administration SBP above 170 Hydralazine HCl 50 mg 02/08/25 22:00 02/09/25 05:06 Hydralazine Hcl 25 Mg Tablet PO 03/10/25 21:59 50 mg TID NILAM Administration Insulin Glargine 15 unit 02/07/25 09:00 02/07/25 09:14 Insulin Glargine (Lantus) 5 Unit/0.05 Ml (Per 5 Units) [place] 03/09/25 08:59 Not Given QAM NILAM Insulin Glargine 23 unit 02/06/25 21:00 02/08/25 20:55 Insulin Glargine (Lantus) 5 Unit/0.05 Ml (Per 5 Units) [place] 03/08/25 20:59 23 unit HS NILAM Administration Insulin Human Lispro 0 unit 02/06/25 17:00 02/08/25 17:36 Insulin Lispro (Admelog) 1 Unit/0.01 Ml Unit SC 03/08/25 16:59 1 unit AC NILAM Administration Protocol Losartan Potassium 25 mg 02/08/25 09:00 02/08/25 09:13 Losartan Potassium 25 Mg Tablet PO 03/10/25 08:59 25 mg QDAY NILAM Administration Nifedipine 30 mg 02/08/25 09:00 02/08/25 09:13 Nifedipine Xl 30 Mg Tabcr PO 03/10/25 08:59 30 mg QDAY NILAM Administration Ondansetron HCl 4 mg 02/06/25 14:31 Ondansetron Inj 2 Mg/Ml Inj 2 Ml IVP 03/08/25 14:30 Q6H PRN NAUSEA OR VOMITING Protocol Pantoprazole Sodium 40 mg 02/07/25 09:00 02/08/25 09:13 Pantoprazole 40 Mg Tablet PO 03/09/25 08:59 40 mg QDAY NILAM Administration Plan Mr. Marshall is a 59-year-old Micronesian speaking gentleman with PMH of hypertension, hyperlipidemia, CKD IV, poorly controlled insulin dependent- T2DM (A1c 12/2024 10.5) , hx of nephrolithiasis, and peripheral neuropathy who presented to the ED after being seen by his outpatient PCP with abnormal labs with K 6.4, and Cr 2.9, non radiating chest pain, trop negative, ekg sinus bradycardia-asymptomatic, no peaked T waves . hyperkalemia resolved. Cr downtrended to 2.2 today, pending discharge per primary team, ok to d/c from nephrology perspective with outpatient nephrology follow up. #ANGELA on CKD IV - resolving #Query hypertensive nephrosclerosis #Query Diabetic nephropathy 12/2024: Renal ultrasound shows: Moderate bilateral renal parenchymal scarring, Left kidney shows cortical thinning Baseline: Cr between 2-3 Cr 2.8 on admission eGFR 25 consider pre, vs intra vs post renal etiolgies BUN/Cr ratio: 14.5, unlikely prerenal UA w 2+ protein and 4 + glucose on 02/09 Hgb 8.7 from 9.8, gave IV iron ferumoxytol 510mg 1x and retacrit inj 10 000 SC x1 Plan: - Daily CMP - spot urine protein, urine Cr ratio: <3.5 gm - renal US 02/06/25 with Bilateral renal cortical thinning, Mild bilateral renal parenchymal scar formation , No hydronephrosis - Avoid nephrotoxic medications - renally dose medications - cleared for discharge from nephro perspective. f/u outpatient with Dr. Bacon #Hyperkalemia- resolved lab work done outpatient showed K 6.4 CMP today shows slightly elevated in K 5.4, BUN 40 from 20 EKG with sinus bradycardia, no peaked t waves Plan: -CTM - repete renal panel, K wnl - 1x insulin 5 in the ED -if EKG changes, recommend calcium gluc, insulin, albuterol. #Hyperglycemia - improved #T2DM on Insulin - poorly controlled A1c 10.3 12/2024 pt reports being out of home test strips, Serum Glucose 445 Home Regimen - 30 units Long acting in the AM - 46 units long acting in the PM Plan - Management per primary team - 1x insulin 5 mg given in the ED - 15 units long acting in the AM - 13 units long acting in the PM #Dizziness - resolved pt reports feeling dizzy/light headed, he states that he experiences this when he goes from sitting to standing, query orthostatic hypotension. #Hypertensive urgency - resolved #chronic HTN - ok to resume home meds on discharge - per primary BP labile 02/08, requiring better BP control, - sbp 120-140s today, on hydralizine 50 TID, Losartan 25 qd, nifedipine 30 qd. #BLE edema - well controlled - resume home furosemide 40 mg PO on discharge #HFpEF [55-60%]- BNP 237. #Kidney stones History of kidney stones, per patient, kidney stone were removed by surgery in 2019. #Bradycardia, asymptomatic #BLE Neuropathy #HLD #Hypothyroidism #Normocytic Anemia --gave IV iron and retacrit 1x - Managment per primary team Thank you for allowing us to participate in the care of this patient Plan discussed with nephrology attending Dr. Arleen Jaquez MD Internal Medicine PGY-1 Attending Provider Attestation/Addendum Patient seen and examined with resident physician Dr. Jaquez. Note reviewed, agree with findings and recommendations. Patient well-known to me from recent admission for ANGELA on CKD. Agree with gentle IV fluids. Will monitor renal function closely. Underlying CKD from a poorly controlled hypertension and diabetes for many years. Creatinine tad better. Follow-up with Dr. Bacon in 1 to 2 weeks
[2025-02-09] MEDS: INSULIN LISPRO (AdmeLOG) 1 UNIT/0.01 ML UNIT SC (08:12)
[2025-02-09] MEDS: HEPARIN SOD INJ 5000 UNIT/ML VIAL SC (08:13)
[2025-02-09 08:14] VITALS: BP 148/72; PULSE 65
[2025-02-09] MEDS: LOSARTAN POTASSIUM 25 MG TABLET PO (08:14)
[2025-02-09] MEDS: NIFEdipine XL 30 MG TABCR PO (08:14)
[2025-02-09] MEDS: PANTOPRAZOLE 40 MG TABLET PO (08:14)
--- NOTE | 2025-02-09 09:43 | PC.SS ---
0943-Per assigned RN, pt will be downgrading to med surge. No d/c today..
[2025-02-09] MEDS: ferumoxytoL (NON-ESRD) 510 MG in SODIUM CHLORIDE 0.9% 100 ML 234 MG IV (10:04)
[2025-02-09] MEDS: EPOETIN ALFA-EPBX INJ 10,000 UNIT/ML VIAL (ESRD) 10000 UNIT SC (10:04)
--- NOTE | 2025-02-09 10:24 | ESDS_ITS ---
Planned Discharge Date 02/09/25 DS: Providers Provider Date of admission: 02/06/25 13:41 Primary care physician: Suzette Barrow PA-C Admitting Provider: Rom Garg DO Attending Provider on Admission: Rom Garg DO Consults: 02/06/25 14:48 Consult to Nephrology Routine Comment: Consulting Provider: Marianne Bacon 02/06/25 18:12 Health Equity Referral - Knowledge Deficit Routine Comment: Positive screening for knowledge deficit needs. Health Equity Referral - Nutrition Routine Comment: Positive screening for nutrition needs. Health Equity Referral - Transportation Routine Comment: Positive screening for transportation needs. 02/08/25 15:11 Referral Registered Dietitian Stat Comment: Attending Provider on DC: Rom Garg DO Discharging Provider: Rom Garg DO DS: Diagnosis Problem List Completed Was Problem List Reviewed/Reconciled?: Yes Hospital Course Hospital Course Hospital course: Vahe Marshall is a 59 year old albanian speaking male with past medical history of HTN, CKD, T2DM, HLD, peripheral neuropathy, HLD who was admitted to [facility] on 02/06/2025 for ANGELA on CKD and hypertensive emergency. Initial vitals showed initial blood pressure came in at 100/52, but notably spiked to 224/96, patient's temperature was 97.6 ?F, pulse rate of 66, respiratory rate of 19, pulse ox of 97% on room air.Patient's labs were significant for hemoglobin of 9.9, potassium of 5.3, BUN 40, creatinine 2.8, EGFR 25, Kos 445, calculated osmolality 304, BNP 237, Pro-Huber 0.10, lactic acid 1.1. Urinalysis significant for 2+ protein, 4+ glucose, 6 RBCs. Imaging included Chest x-ray showed mild elevation right hemidiaphragm, no active disease. EKG showed sinus bradycardia with sinus arrhythmia. In the ED, patient was given hydralazine 10 mg x1 and 5 units Insulin x1. Medicine was consulted and pt was admitted to the floors. While on the floors, patient was seen by nephrology recommended ultrasound and fluids. Renal ultrasound was done and showed bilateral renal cortical thinning and scarring. Patient's kidney function continued to improve throughout the hospital stay and his creatinine was 2.2 upon discharge. Patient was having consistently elevated blood pressure in which we managed with PRNs in addition to starting oral medicines including losartan, hydralazine and nifedipine. Patient was also seen by registered dietitian and had gotten a CGM, ellie pryor in which this was sent to his pharmacy to control for his diabetes in which she had an A1c of 10 on admission. We continued with the patient's cu rrent insulin regiment and recommended for him to follow-up outpatient. Patient continues to improve and was discharged with the following instructions listed below. Discharge instructions: Follow-up with your PCP within 1 week Follow-up with your bioinformatics software engineer, Dr. Bacon within 1 week Take your medicines as prescribed I have ordered a lab slip for you to do labs and this is for your renal function. Do this before your nephrology appointment. I recommend to follow up on your thyroid labs within 4-6 weeks upon discharge, they were slightly elevated while in the hospital. Return to ED if your symptoms worsen or return Problem List: #ANGELA on CKD #Insulin-dependent type 2 diabetes mellitus, poorly controlled #Hypertension #Hyperlipidemia #Subclinical hypothyroidism #Hypertensive emergency, resolved #Hyperkalemia, resolved Discharge summary was reviewed with my attending Dr. Forest Payton, PGY-2 Time Spent with Patient Time attestation: Total time spent providing and/or coordinating discharge services: Time spent: Greater than 30 minutes Exam Vital Signs Temp Pulse Resp BP Pulse Ox O2 Del Method 97.1 F 65 19 148/72 H 99 Room Air 02/09/25 08:00 02/09/25 08:14 02/09/25 08:00 02/09/25 08:14 02/09/25 08:00 02/09/25 08:00 Narrative Exam General: No acute distress; A&Ox3 Skin: Warm, dry, intact, no obvious rash. HENT: NCAT, EOMI, not icteric. External ears normal. No rhinorrhea. Moist mucous membranes Cardiovascular: Regular rate and rhythm, no murmur, +S1/S2. Respiratory: Lungs CTAB GI: abdomen soft, nontender, non-distended. No guarding or rebound tenderness. Extremities: no edema, no cyanosis, no clubbing. Extremity pulses present Neuro: No focal deficits observed. Conversant, moving all extremities. No overt cerebellar signs/incoordination. Psychiatric: Cooperative, appropriate affect. Discharge Plan Plan Patient Disposition: HOME (Self Care) Patient condition on transfer: Stable Care Plan Goals: Discharge instructions Follow-up with your PCP within 1 week Follow-up with your bioinformatics software engineer, Dr. Bacon within 1 week Take your medicines as prescribed I have ordered a lab slip for you to do labs and this is for your renal function . Do this before your nephrology appointment. I recommend to follow up on your thyroid labs within 4-6 weeks upon discharge, they were slightly elevated while in the hospital. Return to ED if your symptoms worsen or return Prescriptions/Referrals Prescriptions/Med Rec: New (DME) FreeStyle Huey 3 [place] Misc See Rx Instructions .Route Qty: 1 1RF Rx Instructions: As directed (DME) FreeStyle Huey 3 Plus Sensor Device See Rx Instructions .Route Qty: 2 1RF Rx Instructions: As directed hydralazine 50 mg tablet 50 mg PO TID 14 Days Qty: 42 0RF Rx Instructions: Take one tablet by mouth three times a day losartan 50 mg tablet 50 mg PO QDAY Qty: 14 0RF nifedipine 30 mg tablet extended release 30 mg PO QDAY 30 Days Qty: 30 0RF Rx Instructions: Take one tablet by mouth every day Continued cholestyramine 4 gram powder 4 g PO TID Qty: 201.6 0RF Rx Instructions: administer w/meal; avoid other meds within 1hr before or 4-6hr after dose gabapentin 400 mg capsule 400 mg PO TID 30 Days Qty: 90 1RF (DME) lancets [Accu-Chek Softclix Lancets] Misc See Rx Instructions .Route Qty: 100 0RF Rx Instructions: As directed (DME) Accu-Chek Guide test strips Strip See Rx Instructions .Route Qty: 50 3RF Rx Instructions: As directed sodium polystyrene sulfonate Powder 15 g PO QDAY PRN (Reason: Hyerkalemia) Qty: 15 0RF pravastatin 40 mg Tablet 40 mg PO QDAY levothyroxine 25 mcg capsule 25 mcg PO ACBR Qty: 30 2RF Rx Instructions: Take 1 capsule (25mcg) every morning, 2 hours before any food or other medications (DME) lancets [Accu-Chek Softclix Lancets] Misc See Rx Instructions .Route Qty: 100 0RF Rx Instructions: As directed Jardiance 10 mg tablet 10 mg PO QAM Qty: 30 3RF Januvia 50 mg tablet 50 mg PO QDAY Qty: 30 3RF furosemide [Lasix] 40 mg tablet 40 mg PO PRN PRN (Reason: edema) 30 Days Qty: 30 0RF Rx Instructions: take as needed for leg swelling or shortness of breath and weight gain more than 2 pounds in 1 day insulin glargine 100 unit/mL (3 mL) insulin pen 30 unit subcut .daily 30 Days Qty: 0 0RF Patient Comments: At night Discontinued clonidine HCl 0.1 mg tablet 0.1 mg PO BID PRN (Reason: hypertensive emergency) Qty: 10 0RF Rx Instructions: take if SBP > 170 losartan 50 mg tablet 50 mg PO QDAY Qty: 30 0RF Referrals: Suzette Barrow PA-C [Primary Care Provider] - Marianne Bacon MD [Physician] - Outpatient Orders (i.e. Home Health, Labs, Imaging): Renal Function Panel (Routine) Timeframe: 1 Week Location: Determined by Patient Ordered By: Lea Payton Patient/Caregiver Discharge Instructions Discharge Activity: activity as tolerated Education Materials: Controlling High Blood Pressure, Diabetes and Heart Disease, Coping with Kidney Failure, Diabetes and Kidney Disease Print Language: Iraqi Stand Alone Forms: [employer] Award Info., Patient Portal Info Letter Discharge Order Discharge Orders: Discharge (Routine); Ordered 02/09/25 Ordered By: Lea Payton Quality Discharge Quality Measures VTE prophylaxis MD Attestestation MD Attestation I have discussed and was present for the essential components of the discharge history, physical examination, diagnosis, and discharge treatment plan with the resident. I agree with the patient's discharge care as documented by the resident and amended herein by me. Davon Garg DO. The patient understood all discharge instructions, all questions were answered satisfactorily. The patient was instructed to return to the Emergency Department is symptoms worsened or persisted. Although this document has been carefully reviewed, there may still be some phonetic and other typographical errors. These errors are purely grammatical due to imperfections in the software program and should not be construed in any way to compromise the substance of the patient's medical care during this visit.
[2025-02-09 11:40] VITALS: BP 155/79; PULSE 64; RESP 16; TEMP 36.1; O2SAT 98
== END 2025-02-09 11:50 | disposition home or self-care (01) | DRG 683 ==
LOC: SERX 13:05 → SERHOLD 14:06 → S2NX 17:32
PROVIDERS: Internal Medicine; Registered Nurse General Practice; Admitting Provider Student in an Organized Health Care Education/Training Program; PCP Student in an Organized Health Care Education/Training Program; Visit Provider Student in an Organized Health Care Education/Training Program
DX: N17.9 Acute kidney failure, unspecified (principal); I13.0 Hypertensive heart and chronic kidney disease with heart failure and stage 1 through stage 4 chronic kidney disease, or unspecified chronic kidney disease; I16.1 Hypertensive emergency; I50.32 Chronic diastolic (congestive) heart failure; E78.5 Hyperlipidemia, unspecified; E11.42 Type 2 diabetes mellitus with diabetic polyneuropathy; E11.22 Type 2 diabetes mellitus with diabetic chronic kidney disease; E11.65 Type 2 diabetes mellitus with hyperglycemia; H53.8 Other visual disturbances; R00.1 Bradycardia, unspecified; N18.4 Chronic kidney disease, stage 4 (severe); E87.5 Hyperkalemia; D63.1 Anemia in chronic kidney disease; E03.8 Other specified hypothyroidism; K59.00 Constipation, unspecified; Z79.4 Long term (current) use of insulin; Z79.899 Other long term (current) drug therapy; Z87.442 Personal history of urinary calculi
CPT/HCPCS: 36415; 71045; 76770; 80053; 80061; 80069; 80307; 81001; 82043; 82570; 83036; 83605; 83690; 83735; 83880; 84100; 84145; 84156; 84300; 84439; 84443; 84484; 84540; 84681; 85025; 85610; 85730; 93005; 96361; 96372; 96374; 96376; 99284; J0360; J1644; J1815; J3490; J7030; J7050; Q0138; Q5105; A9270; J1920

== ENCOUNTER 2025-02-20 08:42 | Outpatient (AMB) | payer MEDICARE, MEDICAID, SELFPAY ==
[2025-02-20 09:13] VITALS: BP 156/62; PULSE 60; RESP 19; TEMP 36.3; O2SAT 97; BMI 23.1
--- NOTE | 2025-02-20 09:13 | ACNOTE_ITS ---
Vital Signs 02/20/25 09:13 Height 1.63 m Height Method Stated Weight 61.235 kg Weight Measurement Method Standing Scale BMI 23.1 BP 156/62 H Blood Pressure Source Automatic Cuff Blood Pressure Location Right Upper Arm Position Sitting Respiration 19 Pulse 60 Pulse Source Monitor Temp 97.3 F Temp Source Temporal Artery Scan Pulse Oximetry (%) 97 Oxygen Delivery Method Room Air Allergies/Meds Allergies & Medications Allergies No Known Allergies Allergy (Verified 02/06/25 10:21) MA Intake Visit Data Collection New Patient or Established: Established Patient (seen at [facility] within 3 years) Seen by Clinical Staff ONLY (RN/MA): No Reason for Visit:: PT S HERE FOR HOSIPTAL FOLLOW UP Pain Present Currently: No Language: KVNG SNELL 411 Directory Assistance Operator Required: Yes PCP or OBGYN visit in last 3 months: Yes Do You Feel Safe at Home: Yes Authorities Contacted: N/A Smoking Status Smoking Status: Never smoker Immunization / Flu Flu Vaccine in the Last 12 Months: Yes Flu Vaccine Exclusion Criteria: Already Received Past Medical History Past Medical History NEUROLOGIC: Negative Neurological Disorders or Seizures CARDIAC: Positive Cardiac Disorders, Peripheral Vascular Disease, Hypercholesterolemia and Hypertension; Negative Congestive Heart Failure RESPIRATORY: Negative Chronic Obstructive Pulmonary Disease (COPD) or Asthma GASTROINTESTINAL: Positive Gastrointestinal Disorders, Pancreatitis, Gall Bladder Disease and Gastroesophageal Reflux Disease GENITOURINARY: Positive Genitourinary Disorders, Renal Disease and Kidney Stones MUSCULOSKELETAL: Positive Arthritis ENDOCRINE: Positive Endocrine Disorders and Diabetes Mellitus Type 2; Negative Diabetes Mellitus Type 1 HEMATOLOGIC: Negative Blood Disorders, Anemia, Sickle Cell Disease or Clotting Problems OTHER HISTORY: Positive Falls; Negative Hospitalization, Autoimmune Disease, Shingles, Blood Transfusions, Anesthesia Reactions, Chemotherapy, Radiation Therapy or MRSA Family History FAMILY HISTORY: Positive Family Cancer; Negative Family Psychiatric Problems, Family Respiratory Disorders, Family Cardiac Disorders, Family Gastrointestinal Problems, Family Surgery or Family Anesthesia Reaction Surgical History SURGICAL: Positive Abdominal Surgery, Joint Replacement and Amputation Social History SMOKING STATUS: Smoking status: Never smoker ALCOHOL: Alcohol Intake: Never HOUSING: Housing: House LIVES WITH: Lives With: Spouse Patient Barron Gonzalez Social History Living Situation History Housing: House Housing Other:: Pt lives with significant other Tobacco History Smoking Status: Never smoker Alcohol History Alcohol Intake: Never Domestic Abuse History Do You Feel Safe at Home: Yes Review of Systems Report any current symptoms Only answer those that you have currently: Past Medical History Past Medical History Have you ever been diagnosed with any of the following: Neurological Problems Seizures: No Cardiology Problems Peripheral Vascular Disease: Yes Hypercholesterolemia: Yes Congestive Heart Failure: No Hypertension: Yes Respiratory Problems Chronic Obstructive Pulmonary Disease (COPD): No Asthma: No Stomache/Intestinal Problems Pancreatitis: Yes Gall Bladder Disease: Yes Gastroesophageal Reflux Disease: Yes Genital/Urinary Problems Renal Disease: Yes Kidney Stones: Yes Musculoskeletal Problems Arthritis: Yes Endocrine Problems Diabetes Mellitus Type 1: No Diabetes Mellitus Type 2: Yes Blood Problems Anemia: No Sickle Cell Disease: No Clotting Problems: No Other Problems Hospitalization: No Autoimmune Disease: No Shingles: No Falls: Yes Blood Transfusions: No Anesthesia Reactions: No Chemotherapy: No Radiation Therapy: No MRSA: No History of Present Illness HPI Narrative 59-year-old male with past medical history of hypertension, hyperlipidemia, CKD, DM 2, nephrolithiasis, and peripheral neuropathy was seen at the [facility] to establish health care. Patient was recently discharged from the hospital on 12/16/2024 for hypertensive emergency. Patient's throat pressure was pretty elevated during hospital admission and his hospital stay was prolonged due to difficult to control blood pressure. Blood pressure today was 136/57. Patient does not complain of any headaches, visual deficits, or chest pain. Patient states that he has been taking all his medications as prescribed except for his levothyroxine that this medication has been causing him to get some palpitations. He also complains of diarrhea with some abdominal pain, but he states that the has been chronic since he got his cholecystectomy. Denies any nausea, vomiting, shortness of breath, but admits pain in his legs and his lower back which radiates to his right lower leg when he bends over. Otherwise patient has no new complaints patient recently got blood work therefore we will do for blood work for now except for CMP as he is currently on Lasix. Patient states that he needs a refill of lancets. He has not seen his technical architect as of yet as he needs a referral. 02/06/2025 Patient was seen in the clinic for follow-up. Patient reported that he is feeling palpitations along with lightheadedness and dizziness. He has been using Lantus 30 units in the morning and 46 units at night. He reported that he has been able to pee adequately. Labs from 01/27/2025 showed glucose 201, BUN 54, creatinine 2.9, GFR 24%, sodium 138, potassium 6.4, chloride 107, bicarb 18. Liver enzymes were unremarkable. Patient was advised to go immediately to the ER given that he is complaining of palpitations and dizziness along with hyperkalemia and worsening kidney functions seen from the recent labs. He was given prescription refill for Accu-Chek guide test strips since he was out of the test trips and does not know his blood sugars at home. Patient would need to follow-up after week follow management of the medications. Patient reported that he is able to go to the ER by himself by driving car and was sent immediately. 02/20/25: Patient was seen in the clinic for follow-up this morning. Patient reported that he has been having chronic diarrhea from past couple of years which has been worsening for the last 2 months mainly. He had history of cholecystectomy and was prescribed cholestyramine during hospital stay but he never took it. He endorsed abdominal discomfort mainly in the epigastric region associated with bloating but denied any cramps. He had a colonoscopy 4 years ago which was normal findings per patient. He was advised to start taking cholestyramine to help with bowel movements and if that does not help he might need another colonoscopy with GI referral next visit. His blood pressure has been stable at home systolic around 110s and diastolic around 90s. He reported his blood sugars fasting is mainly 130 mg/dL and 2-hour postmeal is above 300. He was taking 36 units at night. His blood sugars from serum test showed blood sugars around 86 mg/dL. He was advised to split his insulin around 15 units twice daily as his lowest blood sugar has been 50 mg/dL. Labs revealed kidney functions consistent with CKD stage IV with BUN 49 previous 53 and creatinine 2.59 previous 2.90 GFR 27. Bicarb 18.Na 140 Potassium 5.1.Albumin 3.7 Patient has an appointment with Dr. Bacon technical architect on February 27, 2025. Patient was prescribed sodium bicarbonate tablets 650 mg twice daily for a week. He was also prescribed calcitriol 0.25 mg once daily and PTH was ordered as patient was found to have degenerative disc disease seen on thoracolumbar spine and was complaining of back pain. Patient was taking metformin and Jardiance but due to his GFR around 27 both of them were stopped and patient was explained that due to his declining kidney functions he should not be on metformin and Jardiance. He was advised to take only Tylenol as needed for pain and to not take Advil Aleve or ibuprofen which can affect his kidneys. Follow-up in a month. Review of Systems Review of Systems Systems Reviewed: All systems reviewed, normal except as documented Objective/Exam Narrative Physical exam: GENERAL APPEARANCE: AxOx4, generally well-appearing male, no acute distress. HEENT: NC, AT. MMM. EOMI, clear conjunctiva, oropharynx clear. NECK: Supple without lymphadenopathy. No stiffness or restricted ROM. HEART:Regular rate and regular rhythm, normal S1/S2, no m/r/g LUNGS: CTAB, moving air well. No crackles or wheezes are heard. ABDOMEN: Soft,epigastric tenderness, nondistended with good bowel sounds heard. BACK: No CVAT, no obvious deformity. EXTREMITIES: Without cyanosis, clubbing or edema. NEUROLOGICAL: Grossly nonfocal. Alert and oriented, moving all 4 extremities. CN not formally tested but appear grossly intact. Observed to ambulate with normal gait. Skin: Warm and dry without any rash. Assessment & Plan Diagnosis / Problem List (1) Chronic diarrhea: Status: Acute Assessment & Plan: -Patient has been having chronic diarrhea for last 20 years. He endorsed abdominal pain with bloating mainly in the epigastric region and he stated that he reports to have altered bowel movements with dominance of diarrhea per days along with constipation which has been worsening from last 2 months. He had a colonoscopy 4 years ago which was normal. He had cholecystectomy long time ago and has been having loose stools not associated with food intake. No fever or chills reported. Denies any blood in stool. Plan: -He was advised to take cholestyramine 4 g 3 times a day to help with loose stools -Metformin and Jardiance were stopped which could be attributing to loose stools -Encouraged on hydration and sodium bicarb tablets given twice daily for a week to 2 bicarb around 18/non-anion gap metabolic acidosis -He was explained in case his symptoms does not improve after taking cholestyramine he might need another colonoscopy or further evaluation with GI specialist (2) DM (diabetes mellitus): Status: Acute Qualifiers: Diabetes mellitus care home insulin use: unspecified care home insulin use status Diabetes mellitus type: type 2 Chronic kidney disease stage: stage 4 (GFR 15-29) Diabetes mellitus complication status: with kidney complications Diabetes mellitus complication detail: with chronic kidney disease Qualified Code(s): E11.22 - Type 2 diabetes mellitus with diabetic chronic kidney disease; N18.4 - Chronic kidney disease, stage 4 (severe) Assessment & Plan: - Patient has been taking insulin, Jardiance and metformin for diabetes type 2. A1c was poorly controlled around 10.2 -Blood sugars at home have been around 130 mg/dL during fasting and above 300 post meals. Patient was taking 36 units of insulin at night. Plan: - Insulin dose was split to 15 units twice daily - Recommended to continue checking his blood sugars with glucometer during fasting and 2 hours postmeal - Recommended to make a chart of blood sugars for better regulation -Metformin and Jardiance were stopped due to CKD stage IV hence contraindicated -No signs of neuropathy at this point - A1c will be checked in next 3 months likely May (3) Post-cholecystectomy syndrome: Status: Acute Assessment & Plan: -Patient has been having chronic diarrhea for last 20 years. He endorsed abdominal pain with bloating mainly in the epigastric region and he stated that he reports to have altered bowel movements with dominance of diarrhea per days along with constipation which has been worsening from last 2 months. He had a colonoscopy 4 years ago which was normal. He had cholecystectomy long time ago and has been having loose stools not associated with food intake. No fever or chills reported. Denies any blood in stool. Plan: -He was advised to take cholestyramine 4 g 3 times a day to help with loose stools -Metformin and Jardiance were stopped which could be attributing to loose stools -Encouraged on hydration and sodium bicarb tablets given twice daily for a week to 2 bicarb around 18/non-anion gap metabolic acidosis -He was explained in case his symptoms does not improve after taking cholestyramine he might need another colonoscopy or further evaluation with GI specialist (4) Hypertension associated with chronic kidney disease due to type 2 diabetes mellitus: Status: Acute Assessment & Plan: - Patient was admitted during in hospital for hypertensive emergency and hyperkalemia. Blood pressure in the office was once 156/62 and repeat was 134/82. -Patient reported blood pressures around 130s at home. - He denied any headache or dizziness. Plan: - Recommended to continue losartan 50 mg and nifedipine 30 mg - Recommended to check his blood pressure every day at least twice - Follow-up with technical architect on February 27 (5) CKD stage 4 due to type 2 diabetes mellitus: Status: Acute Assessment & Plan: - Labs revealed kidney functions consistent with CKD stage IV with BUN 49 previous 53 and creatinine 2.59 previous 2.90 GFR 27. Bicarb 18.Na 140 Potassium 5.1.Albumin 3.7 - Patient still having adequate urine output. - He was found to have non-anion gap metabolic acidosis with mildly improved kidney function since hospital discharge. Plan: - Recommended to take sodium bicarbonate 650 mg twice daily for a week, added calcitriol 0.25 mg once daily and ordered PTH - Potassium slightly on the higher limits but under control therefore we will monitor closely - Jardiance 10 mg once daily and metformin 1 g once daily was stopped to help with improvement in kidney functions - Recommended to take Tylenol in case of abdominal pain and advised to not take Aleve or ibuprofen or Advil which can worsen kidney functions - Avoid all nephrotoxic agents. - Encouraged hydration - Better control blood sugars and blood pressure discussed in detail with patient (6) Hypothyroidism (acquired): Status: Acute Assessment & Plan: - Patient is currently taking levothyroxine 25 mcg every day - TSH was 5.01 slightly elevated during hospital stay and T4 was normal 1.05 Plan: - Recommended to continue taking levothyroxine - Follow-up with thyroid functions after a month Patient was seen and discussed with attending physician, Dr.Watanakunakorn Daniels Wasiq PGY3 Office Procedures [facility] Level of Care Nursing/Assessment Patient Status: Established Patient Nursing Assessment/Reassessment: Medication Reconciliation, Update PMH in EMR and Vital Signs Coordination of Care: Complex Care and Chronic Disease 1-5, Consent,records obtained, informed consent, Lab and Imaging orders and Results/Orders obtained Established Patient Charge Established Patient Point Assignment: 80 Established Patient Point Charge: Level 3 (80-115)
== END 2025-02-20 10:26 | disposition home or self-care (01) ==
PROVIDERS: PCP Student in an Organized Health Care Education/Training Program; Referring Provider Student in an Organized Health Care Education/Training Program; Supervising Provider Internal Medicine; Visit Provider Student in an Organized Health Care Education/Training Program
DX: K52.9 Noninfective gastroenteritis and colitis, unspecified (principal); K91.5 Postcholecystectomy syndrome; I10 Essential (primary) hypertension; I12.9 Hypertensive chronic kidney disease with stage 1 through stage 4 chronic kidney disease, or unspecified chronic kidney disease; E11.22 Type 2 diabetes mellitus with diabetic chronic kidney disease; N18.4 Chronic kidney disease, stage 4 (severe); Z79.4 Long term (current) use of insulin; Z79.84 Long term (current) use of oral hypoglycemic drugs; E03.9 Hypothyroidism, unspecified; Z79.890 Hormone replacement therapy
CPT/HCPCS: 99213; G0463

== ENCOUNTER → 2025-05-16 | Outpatient (CLI) | payer MEDICARE, MEDICAID, SELFPAY ==
--- NOTE | 2025-05-16 14:30 | XR_ITS ---
Examination: Retroperitoneal ultrasound, complete Technique: Multiple high resolution grayscale images of the retroperitoneum obtained, including kidneys and bladder. Exam date and time: May 16, 2025 1459 hours INDICATIONS: Acute renal insufficiency on laboratory examination 2 months ago. FINDINGS: Right kidney 10.7 cm renal cortex 1.1 cm Left kidney 10.4 cm renal cortex 1.7 cm Moderate renal scar formation, no hydronephrosis No bladder mass or bladder calculi Bladder prevoid volume 298 cc Prostate volume 31 cc no prostate nodules IMPRESSION: Moderate bilateral renal scar formation, no hydronephrosis
== END | disposition home or self-care (01) ==
LOC: CDIM 14:40
PROVIDERS: PCP Internal Medicine; Referring Provider Internal Medicine; Visit Provider Internal Medicine
DX: N28.89 Other specified disorders of kidney and ureter (principal); N18.32 Chronic kidney disease, stage 3b
CPT/HCPCS: 76770